=== PATIENT | female | born 1960 | race Caucasian/White ===

== ENCOUNTER 2017-01-03 20:56 | Emergency (ER) | payer OTHER ==
[~2017-01-03] VITALS: Ht 172.7 cm; Wt 79.4 kg
[~2017-01-03 20:56] MED LIST: ALBU8.5H6 IH; ALPR0.5T PO; ASPI-482 PO; ASPI-630 PO; ASPI325T11 PO; BENZ100C15 PO; BUDE10.22 IH; BUPR150T8 PO; CEPH-264 PO; CIPR500T94 PO; GABA-586 PO; IBUP-1007 PO; IPRA3AMP23 IH; METR500T8 PO; NICO10CA IH; OMEP20CA9 PO; OXYC1TAB7 PO; PRED20TA PO; PRED50TA PO; PROP60TA PO
[2017-01-03 20:59] VITALS: BP 130/78
[2017-01-03] MEDS ORDERED: PRED50TA PO (21:13)
[2017-01-03] MEDS ORDERED: CLIN150C14 PO (21:13)
--- NOTE | 2017-01-03 21:13 | PHYS DOC ---
Past Medical History Past Medical History: A-Fib, Anxiety, COPD, Diverticulitis, Other Additional Past Medical Histor: pleurisy, and shingles Past Surgical History: No Surgical History Alcohol Use: None Drug Use: None Adult General Chief Complaint Chief Complaint: INSECT BITE HPI HPI Patient is a 56 year old female with history of COPD who presents with what she believes is an insect bite to the right knee and left flank region that she noted this morning. Patient denies any fever. Denies any knowledge of what bit her. Review of Systems Review of Systems Constitutional: Denies fever or chills [] Musculoskeletal: Denies back pain or joint pain [] Integument: insect bite to the right knee and left flank region Neurologic: Denies headache, focal weakness or sensory changes [] Endocrine: Denies polyuria or polydipsia [] Current Medications Current Medications Current Medications Medications (Trade) Dose Ordered Sig/Alan Start Time Stop Time Status Last Admin Dose Admin Diphtheria/ Tetanus/Acell Pertussis (Boostrix) 0.5 ml ONCE ONCE 01/03/17 21:15 01/03/17 21:16 UNV Allergies Allergies Allergies Coded Allergies Type Severity Reaction Last Updated Verified Penicillins Allergy Intermediate "SKIN PEELS OFF HANDS AND FEET" 11/21/15 Yes Sulfa (Sulfonamide Antibiotics) Allergy Intermediate BLISTERS 11/21/15 Yes Physical Exam Physical Exam Constitutional: Well developed, well nourished, no acute distress, non-toxic appearance. [] Skin: Left flank region with an area of cellulitis approximately 3 x 3 cm the area is warm tender to touch with the a black nieves in the center. There is no fluctuance to the area. Right anterior knee with the area of cellulitis very superficial in nature approximately 4 x 4 centimeters. There is a tiny open area in the center of the knee cellulitis with clear drainage. There is warmth over the cellulitis area. Neurovascular exam is intact to the right knee and right lower extremity. Back: No tenderness, no CVA tenderness. [] Extremities: No tenderness, no cyanosis, no clubbing, ROM intact, no edema. [] Neurologic: Alert and oriented X 3, normal motor function, normal sensory function, no focal deficits noted. [] Psychologic: Affect normal, judgement normal, mood normal. [] Current Patient Data Vital Signs Vital Signs Date Time Temp Pulse Resp B/P (MAP) Pulse Ox O2 Delivery O2 Flow Rate FiO2 01/03/17 20:59 98.2 91 16 95 Room Air 98.2 EKG EKG [] Radiology/Procedures Radiology/Procedures [] Course & Med Decision Making Course & Med Decision Making Pertinent Labs and Imaging studies reviewed. (See chart for details) Patient has cellulitis to the left flank and right knee that could possibly have come from an insect bite. Discharged with clindamycin for 10 days. Instructed to keep the affected areas clean and dry. Given tetanus in the ED. Provided return precautions. Discharged in stable condition. Dragon Disclaimer Dragon Disclaimer This electronic medical record was generated, in whole or in part, using a voice recognition dictation system. Departure Departure Impression: Primary Impression: Insect bite Additional Impressions: Cellulitis of back Cellulitis of knee, right Disposition: 01 HOME, SELF-CARE Condition: STABLE Referrals: KAYE WORLEY MD (PCP) Follow-up with your doctor in 1-2 weeks Patient Instructions: Cellulitis, Insect Bite, [id number] Additional Instructions: You were seen for cellulitis of the right knee and left mid back. This could've come from an insect bite. Keep the area clean and dry. Complete your antibiotics. Take the prescribed prednisone as ordered. Take Benadryl as needed for itching. Follow-up with your doctor in 1-2 weeks. Scripts Prednisone (PREDNISONE) 50 Mg Tablet 1 TAB PO DAILY, #5 TAB Prov: NANI ALONSO APRN 01/03/17 Clindamycin Hcl (CLINDAMYCIN HCL) 150 Mg Capsule 3 CAP PO TID, #90 CAP Prov: NANI ALONSO APRN 01/03/17 Problem Qualifiers Primary Impression: Insect bite Encounter type: initial encounter Qualified Codes: W57.XXXA - Bitten or stung by nonvenomous insect and other nonvenomous arthropods, initial encounter NANI ALONSO APRN Jan 03, 2017 21:13
[2017-01-03] MEDS ORDERED: DIPHTH,PERTUSS(ACELL),TET TOX 0.5 ML DISP.SYRIN. VAX IM ONE (21:30)
== END 2017-01-03 21:26 | disposition home or self-care (01) ==
LOC: ER 20:56
DX: S80.261A Insect bite (nonvenomous), right knee, initial encounter (principal); S30.861A Insect bite (nonvenomous) of abdominal wall, initial encounter; L03.115 Cellulitis of right lower limb; L03.312 Cellulitis of back [any part except buttock and flank]; L03.818 Cellulitis of other sites; I48.91 Unspecified atrial fibrillation; F41.9 Anxiety disorder, unspecified; J44.9 Chronic obstructive pulmonary disease, unspecified; Z88.2 Allergy status to sulfonamides; Z88.0 Allergy status to penicillin; W57.XXXA Bitten or stung by nonvenomous insect and other nonvenomous arthropods, initial encounter; Y93.89 Activity, other specified; Y92.89 Other specified places as the place of occurrence of the external cause; Y99.8 Other external cause status
CPT/HCPCS: 90471; 90715; 99283-25

== ENCOUNTER 2017-01-11 19:23 | Emergency (ER) | payer OTHER ==
[~2017-01-11] VITALS: Ht 172.7 cm; Wt 79.4 kg
[~2017-01-11 19:23] MED LIST changes: +CLIN150C14 PO
[2017-01-11 19:35] VITALS: BP 149/75
[2017-01-11] MEDS ORDERED: PRED20TA PO (20:09)
[2017-01-11] MEDS ORDERED: DOXY100C2 PO (20:09)
--- NOTE | 2017-01-11 20:09 | PHYS DOC ---
Past Medical History Past Medical History: A-Fib, Anxiety, COPD, Diverticulitis, Other Additional Past Medical Histor: pleurisy, and shingles Past Surgical History: No Surgical History Alcohol Use: None Drug Use: None Adult General Chief Complaint Chief Complaint: ITCHING HPI HPI Patient is a 56 year old female presents emergency Department with left forearm that is red warm swollen and tender. Patient states the areas been itching for the last few days. Patient states that she was placed on cephalexin in the earlier part of December for an infection in her leg where she was bit by a insect. However looking through the chart patient was placed on clindamycin. Patient states that she was put on some steroids and the leg appear to look better after the steroids however now the left arm appears to be red swollen and tender. Patient denies any bites or any wounds to the left arm to create the area to be red warm and swollen. Peripheral pulses are 2+ cap refill brisk less than 2 seconds. Patient's right-hand dominant Review of Systems Review of Systems Constitutional: Denies fever or chills [] Eyes: Denies change in visual acuity, redness, or eye pain [] HENT: Denies nasal congestion or sore throat [] Respiratory: Denies cough or shortness of breath [] Cardiovascular: No additional information not addressed in HPI [] GI: Denies abdominal pain, nausea, vomiting, bloody stools or diarrhea [] : Denies dysuria or hematuria [] Musculoskeletal: Denies back pain. Redness warmth tenderness and pain to the left forearm Integument: Denies rash or skin lesions [] Neurologic: Denies headache, focal weakness or sensory changes [] Endocrine: Denies polyuria or polydipsia [] Allergies Allergies Allergies Coded Allergies Type Severity Reaction Last Updated Verified Penicillins Allergy Intermediate "SKIN PEELS OFF HANDS AND FEET" 11/21/15 Yes Sulfa (Sulfonamide Antibiotics) Allergy Intermediate BLISTERS 11/21/15 Yes Physical Exam Physical Exam Constitutional: Well developed, well nourished, no acute distress, non-toxic appearance. [] HENT: Normocephalic, atraumatic, bilateral external ears normal, oropharynx moist, no oral exudates, nose normal. [] Eyes: PERRLA, EOMI, conjunctiva normal, no discharge. [] Neck: Normal range of motion, no tenderness, supple, no stridor. [] Cardiovascular:Heart rate regular rhythm Lungs & Thorax: No respiratory distress noted Skin: Warm, dry, no erythema, patient with a red rash noted, no drainage no discharge no papules no pustulous noted. Back: No tenderness Extremities: Left forearm tenderness, redness noted swelling and warmth noted. No cyanosis, no clubbing, ROM intact, no edema. [] Neurologic: Alert and oriented X 3, normal motor function, normal sensory function, no focal deficits noted. [] Psychologic: Affect normal, judgement normal, mood normal. [] Current Patient Data Vital Signs Vital Signs Date Time Temp Pulse Resp B/P (MAP) Pulse Ox O2 Delivery O2 Flow Rate FiO2 01/11/17 19:35 98.0 81 18 98 Room Air 98.0 EKG EKG [] Radiology/Procedures Radiology/Procedures [] Course & Med Decision Making Course & Med Decision Making Pertinent Labs and Imaging studies reviewed. (See chart for details) Patient will be placed on steroid for 7 days as opposed to a short 2-3 day. Patient had been on steroids earlier in the month. Patient will stop the antibiotic which she was prescribed and will be placed on doxycycline. Patient will be encouraged follow-up with her primary care physician for blood work to determine if she has an autoimmune issue due to the fact she has continual rashes. Patient was provided with signs and symptoms to return back to emergency department. Patient agrees with discharge instructions treatment regimens and follow-up recommendations. [] Dragon Disclaimer Dragon Disclaimer This electronic medical record was generated, in whole or in part, using a voice recognition dictation system. Departure Departure Impression: Primary Impression: Cellulitis of left forearm Disposition: 01 HOME, SELF-CARE Condition: STABLE Referrals: KAYE WORLEY MD (PCP) Patient Instructions: Cellulitis, Opcd-mi-Urri Additional Instructions: Activity as tolerated. Medications as prescribed. Stop taking the previous antibiotic clindamycin your prescribed. Prednisone as prescribed. Continue your antihistamine that you're taking at home. Follow-up to primary care physician in the next week. Return back to emergency prior signs symptoms of become worse. Scripts Prednisone (PREDNISONE) 20 Mg Tablet 40 MG PO DAILY for 7 Days, #14 TAB Prov: STEPH ESTRADA [employer]us [employer] 01/11/17 Doxycycline Hyclate (DOXYCYCLINE HYCLATE) 100 Mg Capsule 1 CAP PO BID, #20 CAP Prov: STEPH ESTRADA APRN 01/11/17 STEPH ESTRADA APRN Jan 11, 2017 20:09
== END 2017-01-11 20:15 | disposition home or self-care (01) ==
LOC: ER 19:23
DX: L03.114 Cellulitis of left upper limb (principal); I48.91 Unspecified atrial fibrillation; J44.9 Chronic obstructive pulmonary disease, unspecified; Z88.0 Allergy status to penicillin; Z88.2 Allergy status to sulfonamides
CPT/HCPCS: 99283

== ENCOUNTER 2017-02-15 21:30 | Emergency (ER) | payer OTHER ==
[~2017-02-15 21:30] MED LIST changes: +DOXY100C2 PO
--- NOTE | 2017-02-15 21:52 | PHYS DOC ---
Past Medical History Past Medical History: A-Fib, Anxiety, COPD, Diverticulitis, Other Additional Past Medical Histor: pleurisy, and shingles Past Surgical History: No Surgical History Alcohol Use: None Drug Use: None Adult General Chief Complaint Chief Complaint: LOWEREXTREMITY INJURY [facility] HPI Patient is a 56 year old female presents to the emergency department stating that she slipped in the the med today and landed on her left knee and has a knot on her left tib-fib area. She denies any radiation of pain or discomfort. She does have a abrasion on her knee noted. She does have tenderness and swelling noted around the knee area. She does have a hematoma noted over the tib -fib area. Peripheral pulses are 2+ cap refill brisk less than 2 seconds. Patient states she's been taken medication at home for pain and discomfort with no relief. She states elevation has been helping with the pain. Review of Systems Review of Systems Constitutional: Denies fever or chills [] Eyes: Denies change in visual acuity, redness, or eye pain [] HENT: Denies nasal congestion or sore throat [] Respiratory: Denies cough or shortness of breath [] Cardiovascular: No additional information not addressed in HPI [] GI: Denies abdominal pain, nausea, vomiting, bloody stools or diarrhea [] : Denies dysuria or hematuria [] Musculoskeletal: Denies back pain. Left knee pain and left lower leg pain Integument: Denies rash or skin lesions [] Neurologic: Denies headache, focal weakness or sensory changes [] Endocrine: Denies polyuria or polydipsia [] Current Medications Current Medications Current Medications Medications (Trade) Dose Ordered Sig/[facility] Start Time Stop Time Status Last Admin Dose Admin Ibuprofen (Motrin) 800 mg 1X ONCE 02/15/17 22:00 02/15/17 22:01 DC Allergies Allergies Allergies Coded Allergies Type Severity Reaction Last Updated Verified Penicillins Allergy Intermediate "SKIN PEELS OFF HANDS AND FEET" 11/21/15 Yes Sulfa (Sulfonamide Antibiotics) Allergy Intermediate BLISTERS 11/21/15 Yes Physical Exam Physical Exam Constitutional: Well developed, well nourished, no acute distress, non-toxic appearance. [] HENT: Normocephalic, atraumatic, bilateral external ears normal, oropharynx moist, no oral exudates, nose normal. [] Eyes: PERRLA, EOMI, conjunctiva normal, no discharge. [] Neck: Normal range of motion, no tenderness, supple, no stridor. [] Cardiovascular:Heart rate regular rhythm, no murmur [] Lungs & Thorax: Bilateral breath sounds clear to auscultation [] Skin: Warm, dry, no erythema, no rash. [] Back: No tenderness Extremities: Left knee tenderness, left lower leg pain and discomfort. No cyanosis, no clubbing, ROM intact, no edema. Patient with tenderness noted on the posterior side of the knee and the lateral part of the left knee. Abrasion noted over the knee. Patient with increased pain and discomfort with full range of motion. Patient was noted to have a hematoma on the distal part of the tib- fib area. She does have tenderness noted patient with multiple areas of bruising. Peripheral pulses 2+ cap refill brisk less than 2 seconds. Patient is able to do straight leg raises with the left leg. Neurologic: Alert and oriented X 3, normal motor function, normal sensory function, no focal deficits noted. [] Psychologic: Affect normal, judgement normal, mood normal. [] Current Patient Data Vital Signs Vital Signs Date Time Temp Pulse Resp B/P (MAP) Pulse Ox O2 Delivery O2 Flow Rate FiO2 02/15/17 21:30 98.1 86 18 96 Room Air 98.1 EKG EKG [] Radiology/Procedures Radiology/Procedures [] Course & Med Decision Making Course & Med Decision Making Pertinent Labs and Imaging studies reviewed. (See chart for details) X-rays are negative for any bony abnormalities. Patient will be discharged home with recommendations to wear the [place]bin wrap for comfort and support. Ice packs on 20 minutes off 20 minutes several times a day. Tylenol or ibuprofen for pain and discomfort. Patient will be encouraged to follow-up the primary care physician within the next 3-5 days. Signs symptoms to return back to emergency provided. Patient agrees with discharge instructions treatment regimens and follow-up recommendations. All questions and concerns been answered at patient' s bedside. [] Dragon Disclaimer Dragon Disclaimer This electronic medical record was generated, in whole or in part, using a voice recognition dictation system. Departure Departure Impression: Primary Impression: Knee pain, left Additional Impression: Contusion Disposition: 01 HOME, SELF-CARE Condition: STABLE Referrals: KAYE WORLEY MD (PCP) ISAI MCDONNELL MD Patient Instructions: Contusion, [id number], Knee Pain, [id number] Additional Instructions: Your x-rays were negative for any bony abnormalities. Wear the [place] wrap for the next 5-7 days. Tylenol or ibuprofen for pain and discomfort. Ice packs on 20 minutes off 20 minutes several times a day. Elevation as much as possible. Follow-up to primary care physician or orthopedic within 3-5 days Return back to emergency prior signs symptoms of become worse. Problem Qualifiers Primary Impression: Knee pain, left Chronicity: acute Qualified Codes: M25.562 - Pain in left knee Additional Impression: Contusion Encounter type: initial encounter Contusion area: lower leg Laterality: left Qualified Codes: S80.12XA - Contusion of left lower leg, initial encounter STEPH ESTRADA APRN Feb 15, 2017 21:52
[2017-02-15] MEDS ORDERED: IBUPROFEN 800 MG TABLET. PO ONE (22:00)
--- NOTE | 2017-02-16 08:16 | RAD ---
Exam performed: X-ray left knee 4 views and left tibia-fibula. History: Left knee pain and discomfort with a probable swelling on the leg today. Date of service: 02/15/17. Comparison: None available 4 views left knee and 2 views left tibia fibula findings: Normal alignment of the medial and lateral tibiofemoral as well as patellofemoral joint compartment is preserved. There is mild prepatellar soft tissue swelling. No joint effusion. Normal alignment of the ankle joint is preserved. There is no acute fracture or dislocation. Mild soft tissue swelling. No foreign body. Impression: No acute abnormality seen in the left knee or tibia-fibula.
== END 2017-02-15 23:15 | disposition home or self-care (01) ==
LOC: ER 21:30
DX: S80.12XA Contusion of left lower leg, initial encounter (principal); I48.91 Unspecified atrial fibrillation; J44.9 Chronic obstructive pulmonary disease, unspecified; Z88.0 Allergy status to penicillin; Z88.2 Allergy status to sulfonamides; W01.0XXA Fall on same level from slipping, tripping and stumbling without subsequent striking against object, initial encounter; Y93.89 Activity, other specified; Y99.8 Other external cause status; Y92.89 Other specified places as the place of occurrence of the external cause
CPT/HCPCS: 73564; 73590; 99284-25

== ENCOUNTER → 2017-06-01 | Outpatient (CLI) | payer OTHER ==
[2017-03-07 07:00] VITALS: BP 129/81
[~2017-06-01] MED LIST changes: +ALPR0.5T6 PO; +BENZ-8 PO; -BENZ100C15 PO; +BUDE10.2 IH; +BUSP5TAB PO; +DULO60CA6 PO; +GABA600T2 PO; +MELO15TA23 PO; +MONT10TA9 PO
--- NOTE | 2017-06-01 16:00 | RAD ---
Indication: Supraclavicular adenopathy on exam Technique: Axial images and coronal and sagittal reformatted images are provided. Comparison is from May 29, 2013. One or more of the following individualized dose reduction techniques were utilized for this examination: 1. Automated exposure control 2. Adjustment of the mA and/or kV according to patient size 3. Use of iterative reconstruction technique Findings: There are subcentimeter short axis supraclavicular lymph nodes bilaterally but no adenopathy. There are subcentimeter short axis axillary lymph nodes bilaterally but no adenopathy. There is minimal emphysema with an upper lobe predominance. There is atelectasis or scarring in the middle lobe and lingula. There are a few groundglass nodules up to 4 mm in size, for example in the right middle lobe on image 44. There is no consolidation. There is no pleural effusion. Central airways are patent. There is atheromatous disease in the thoracic aorta without aneurysm. There are coronary artery calcifications. The heart is not enlarged. There are minimal degenerative changes in the spine. Impression: 1. Subcentimeter short axis supraclavicular and axillary lymph nodes. No adenopathy apparent. These nodes may be reactive. As these lymph nodes are clinically palpable, clinical follow-up to resolution would be suggested. 2. Minimal emphysema. 3. A few vague groundglass nodules. Per Fleischner Society, follow-up in 3-6 months is recommended.
== END | disposition home or self-care (01) ==
LOC: CT 12:56
PROVIDERS: ATTEND Family Medicine
DX: J43.9 Emphysema, unspecified (principal); I70.90 Unspecified atherosclerosis; R59.0 Localized enlarged lymph nodes
CPT/HCPCS: 71250

== ENCOUNTER → 2017-08-11 | Outpatient (CLI) | payer OTHER | END | disposition home or self-care (01) | LOC: CT 11:53 | DX: J43.9 Emphysema, unspecified (principal); R91.8 Other nonspecific abnormal finding of lung field; Z87.891 Personal history of nicotine dependence | CPT/HCPCS: 71250 ==

== ENCOUNTER → 2017-11-04 | Outpatient (CLI) | payer OTHER | END | disposition home or self-care (01) | LOC: MAMMO 12:03 | DX: Z12.31 Encounter for screening mammogram for malignant neoplasm of breast (principal); J44.1 Chronic obstructive pulmonary disease with (acute) exacerbation | CPT/HCPCS: 77067 ==

== ENCOUNTER → 2018-09-30 | Outpatient (CLI) | payer OTHER ==
[2018-05-03 11:54] VITALS: BP 139/80
[~2018-09-30] MED LIST changes: +DILT120C85 PO; +FLUT16SP NS; +FURO20TA3 PO; -GABA-586 PO; +GABA300C18 PO; +GABA300C9 PO; -GABA600T2 PO; +GABA600T7 PO; +HYDR50CA2 PO; +LOSA-73 PO; +METR-34 PO; -METR500T8 PO; +OMEP20CA10 PO; -OMEP20CA9 PO; +OXYC10TA PO
--- NOTE | 2018-09-30 17:56 | RAD ---
Chest CT without contrast Clinical indications: COPD. COMPARISON: June 01, 2017 and 10/09/2017. TECHNIQUE: Noncontrast helical CT scanning of the chest was performed. Without contrast, sensitivity to detect organ pathology is decreased. PQRS compliance Statement One or more of the following individualized dose reduction techniques were utilized for this study: 1. Automated exposure control 2. Adjustment of the mA and/or kV according to patient size 3. Use of iterative reconstruction technique FINDINGS: Mediastinal lymph nodes are unchanged. No enlarging thoracic lymphadenopathy is evident. Heart size is normal. Mild calcified atheromatous disease of the coronary arteries is seen. No pericardial effusion is evident. No focal aneurysmal dilatation of the thoracic aorta is seen. No adrenal mass is evident. No lung mass or lung consolidation is evident. There is chronic scarring within the medial aspect of the right middle lobe. No new lung nodule is evident. The proximal bronchial tree is patent. No lytic process is seen. No adrenal mass is evident. IMPRESSION: No acute abnormality. Electronically signed by: Kenyon Griffin MD (09/30/2018 5:53 PM) [facility]
== END | disposition home or self-care (01) ==
LOC: CT 13:02
PROVIDERS: ATTEND Family Medicine
DX: J98.4 Other disorders of lung (principal); J44.9 Chronic obstructive pulmonary disease, unspecified; I25.10 Atherosclerotic heart disease of native coronary artery without angina pectoris
CPT/HCPCS: 71250

== ENCOUNTER 2018-11-23 02:24 | Inpatient (IN) | payer OTHER ==
[2018-11-23] VITALS (7 sets, daily range): BP systolic 118–145; BP diastolic 64–80
[~2018-11-23] VITALS: Ht 172.7 cm; Wt 83.6 kg
[~2018-11-23 02:24] MED LIST changes: -DILT120C85 PO; -FLUT16SP NS; -FURO20TA3 PO; -GABA300C9 PO
[2018-11-23] MEDS ORDERED: ALBUTEROL SULFATE 2.5 MG/3 ML NEBU. ONE (02:30)
[2018-11-23] MEDS ORDERED: ALBUTEROL SULFATE 2.5 MG/3 ML NEBU. CONT NEB ONE (02:30)
[2018-11-23] MEDS ORDERED: methylPREDNISolone SOD SUCC PF 125 MG/2 ML VIAL. IV ONE (02:45)
[2018-11-23 03:27] LABS: BASO % 1 % (0-3); EOS # 0.3 x10^3/uL (0.0-0.7); EOS % 3 % (0-3); HEMATOCRIT 40.5 % (36.0-47.0); HEMOGLOBIN 13.7 g/dL (12.0-15.5); LYMPH # 1.2 x10^3/uL (1.0-4.8); LYMPH % 14 % (24-48); MEAN CORPUSCULAR HEMOGLOBIN 32 pg (25-35); MEAN CORPUSCULAR HGB CONC 34 g/dL (31-37); MEAN CORPUSCULAR VOLUME 94 fL (79-100); MONO % 11 % (0-9); NEUT # 6.1 x10^3uL (1.8-7.7); NEUT % 71 % (31-73); PLATELET COUNT 227 x10^3/uL (140-400); RED BLOOD COUNT 4.32 x10^6/uL (3.50-5.40); RED CELL DISTRIBUTION WIDTH 14.3 % (11.5-14.5); WHITE BLOOD COUNT 8.6 x10^3/uL (4.0-11.0)
[2018-11-23 03:36] LABS: CALCIUM 9.6 mg/dL (8.5-10.1); CREATININE 0.6 mg/dL (0.6-1.0); GFR 102.3; POTASSIUM 3.9 mmol/L (3.5-5.1)
[2018-11-23 03:44] LABS: ALBUMIN 3.7 g/dL (3.4-5.0); TOTAL BILIRUBIN 0.2 mg/dL (0.2-1.0); TOTAL PROTEIN 7.4 g/dL (6.4-8.2)
--- NOTE | 2018-11-23 04:24 | PHYS DOC ---
Past Medical History Past Medical History: A-Fib, Anxiety, COPD, Diverticulitis, Other Additional Past Medical Histor: pleurisy, and shingles Past Surgical History: No Surgical History Alcohol Use: None Drug Use: None Adult General Chief Complaint Chief Complaint: SHORTNESS OF BREATH HPI HPI Patient is a 58 year old female with history of A. fib, COPD who presents with increased shortness of breath for the past 3 days. Patient states she is having head cold in seasonal allergies which is gradually settled into her chest. Reports increased home breathing treatment's. Patient has been using breathing treatment 6 times daily. Patient called EMS was reported to be in mild respiratory distress. 2 DuoNeb treatments given prior to arrival. Patient with diminished breath sounds bilaterally with expiratory wheezes. O2 saturations 98%. No other acute symptoms or complaints. Patient's guard chief is Dr. Barahona.[] Review of Systems Review of Systems ROS PER h All other systems were reviewed and found to be within normal limits, except as documented in this note. Current Medications Current Medications Current Medications Medications (Trade) Dose Ordered Sig/Alan Start Time Stop Time Status Last Admin Dose Admin Albuterol Sulfate (Ventolin Neb Soln) 2.5 mg STK-MED ONCE 11/23/18 02:30 11/23/18 02:31 DC Methylprednisolone Sodium Succinate (SOLU-Medrol 125MG VIAL) 125 mg 1X ONCE 11/23/18 02:45 11/23/18 02:59 DC 11/23/18 03:22 125 MG Allergies Allergies Allergies Coded Allergies Type Severity Reaction Last Updated Verified Penicillins Allergy Intermediate "SKIN PEELS OFF HANDS AND FEET" 11/21/15 Yes Sulfa (Sulfonamide Antibiotics) Allergy Intermediate BLISTERS 11/21/15 Yes Physical Exam Physical Exam Constitutional: Well developed, well nourished, no acute distress, non-toxic appearance. [] HENT: Normocephalic, atraumatic, bilateral external ears normal, oropharynx moist, no oral exudates, nose normal. [] Eyes: PERRLA, EOMI, conjunctiva normal, no discharge. [] Neck: Normal range of motion, no tenderness, supple, no stridor. [] Cardiovascular:Heart rate regular rhythm, no murmur [] Lungs & Thorax: Respirations labored, tachypnea, and coarse diminished breath sounds with expiratory wheezes. [] Abdomen: Bowel sounds normal, soft, no tenderness, no masses, no pulsatile masses. [] Skin: Warm, dry, no erythema, no rash. [] Back: No tenderness, no CVA tenderness. [] Extremities: No tenderness, no cyanosis, no clubbing, ROM intact, no edema. [] Neurologic: Alert and oriented X 3, normal motor function, normal sensory f unction, no focal deficits noted. [] Psychologic: Affect normal, judgement normal, mood normal. [] Current Patient Data Vital Signs Vital Signs Date Time Temp Pulse Resp B/P (MAP) Pulse Ox O2 Delivery O2 Flow Rate FiO2 11/23/18 02:30 92 Room Air 11/23/18 02:26 98.2 95 24 141/86 (104) 98.2 EKG EKG [ekg: Sinus rhythm, nonspecific T-wave abnormalities, rate 91, qtc 449.] Radiology/Procedures Radiology/Procedures [Chest x-ray: Radiology report pending] Course & Med Decision Making Course & Med Decision Making Pertinent Labs and Imaging studies reviewed. (See chart for details) [Acute COPD exacerbation. Continuous breathing treatment and steroids given. Patient remains symptomatic with persistent wheezes. Will admit to hospitalist service with pulmonology consult] Dragon Disclaimer Dragon Disclaimer This electronic medical record was generated, in whole or in part, using a voice recognition dictation system. Departure Departure Impression: Primary Impression: COPD exacerbation Disposition: ADMITTED INPATIENT Condition: IMPROVED Referrals: KAYE WORLEY MD (PCP) DEREJE CARLIN DO Nov 23, 2018 04:24
[2018-11-23] MEDS ORDERED: FLUT16SP NS (04:44)
[2018-11-23] MEDS ORDERED: GABA300C9 PO (04:44)
--- NOTE | 2018-11-23 05:19 | NUR ---
Patient arrived to unit at 0406 accompanied by ER nurse. VS stable, assessment complete, no complaints of pain at this time. Pt resting comfortably on RA. Valuables checked. Call light with in reach, bed in low, locked position. Will continue to monitor pt.
[2018-11-23] MEDS: methylPREDNISolone SOD SUCC PF 125 MG/2 ML VIAL. IV SCH ×2 (06:11→13:45)
--- NOTE | 2018-11-23 06:57 | EKG ---
[facility] [address] [place] [address] Test Date: 2018-11-23 Test Time: 03:03:18 Pat Name: SILVIA JOHN Department: Room: Gender: F [employer]: : 1960 Requested By: DEREJE CARLIN Order Number: [id number] Reading MD: Measurements Intervals [place] Rate: 91 P: 45 WV: 180 QRS: 8 QRSD: 74 T: 56 QT: 364 QTc: 449 Interpretive Statements SINUS RHYTHM NON SPECIFIC T ABNORMALITY BORDERLINE ECG No previous ECG available for comparison
[2018-11-23] MEDS ORDERED: IPRATRPIUM/ALBUTEROL 0.5/2.5MG 3 ML NEBU. NEB SCH (08:00)
[2018-11-23] MEDS: oxyCODONE/APAP 5/325 1 TAB TABLET PO PRN ×2 (08:09→16:15)
--- NOTE | 2018-11-23 08:25 | RAD ---
EXAM: CHEST 1 VIEW History: Shortness of breath COMPARISON: 05/01/2018 TECHNIQUE: Single portable radiograph of the chest FINDINGS: The cardiac silhouette is unremarkable. Minimal prominent bilateral interstitial lung markings. The costophrenic sulci are clear and well demarcated. There is a density projecting in the inferior right hemithorax probably external to the patient. IMPRESSION: 1. Mild prominent bilateral interstitial lung markings likely mild congestive changes. 2. There is a density projecting in the inferior right hemithorax probably external to the patient. Electronically signed by: Epifanio Ross MD (11/23/2018 8:22 AM) [place] [id number]
--- NOTE | 2018-11-23 10:24 | PDOC1 ---
History and Physical Date of Admission Date of Admission DATE: 11/23/18 TIME: 10:19 Identification/Chief Complaint Chief Complaint dyspnea, cough Source Source: Chart review, Patient History of Present Illness History of Present Illness Ms. Tao, is a 58 year old female with days of worsening cough and dyspnea, long hx of COPD, prior exacerbations, Now with increased shortness of breath for the past 3 days. 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 Reports increased home breathing treatment's. Patient has been using breathing treatment 6 times daily. came to hospital by EMS was reported to be in respiratory distress. 2 DuoNeb treatments given prior to arrival. . Patient's gusset stitcher is Dr. Campos Past Medical History Cardiovascular: AFIB, HTN Pulmonary: COPD CENTRAL NERVOUS SYSTEM: Other GI: Other Heme/Onc: No pertinent hx Hepatobiliary: No pertinent hx Psych: Anxiety, Depression Musculoskeletal: Osteoarthritis Rheumatologic: No pertinent hx Infectious disease: No pertinent hx Renal/: No pertinent hx Endocrine: No pertinent hx Past Surgical History Past Surgical History: No pertinent history Family History Family History: Coronary Artery Disease Social History Smoke: <1 pack per day ALCOHOL: none Drugs: None Current Problem List Problem List Problems Medical Problems: (1) COPD exacerbation Status: Acute Current Medications Current Medications Current Medications Methylprednisolone Sodium Succinate (SOLU-Medrol 125MG VIAL) 125 mg 1X ONCE IV Last administered on 11/23/18at 03:22; Start 11/23/18 at 02:45; Stop 11/23/18 at 02:59; Status DC Albuterol Sulfate (Ventolin Neb Soln) 10 mg 1X ONCE CONT NEB Last administered on 11/23/18at 02:30; Start 11/23/18 at 02:30; Stop 11/23/18 at 02:59; Status DC Albuterol Sulfate (Ventolin Neb Soln) 2.5 mg STK-MED ONCE .ROUTE ; Start 11/23/18 at 02:30; Stop 11/23/18 at 02:31; Status DC Albuterol/ Ipratropium (Duoneb) 3 ml RTQID NEB Last administered on 11/23/18at 07:52; Start 11/23/18 at 08:00; Stop 11/24/18 at 07:59 Methylprednisolone Sodium Succinate (SOLU-Medrol 125MG VIAL) 62.5 mg Q8HRS IV Last administered on 11/23/18at 06:11; Start 11/23/18 at 06:00 Oxycodone/ Acetaminophen (Percocet 5/325) 1 tab PRN Q6HRS PRN PO PAIN Last administered on 11/23/18at 08:09; Start 11/23/18 at 08:15 Active Scripts Active Reported Fluticasone Propionate Nasal [place] (Fluticasone Propionate) 16 Gm [place].susp 16 Gm NS DAILY Gabapentin 300 Mg Capsule 300 Mg PO BID Hydroxyzine Pamoate 50 Mg Capsule 25 Mg PO PRN BID PRN Losartan Potassium 50 Mg Tablet 50 Mg PO DAILY Symbicort 160-4.5 Mcg Inhaler (Budesonide/Formoterol Fumarate) 10.2 Gm Hfa.aer.ad 2 Puff IH BID Cymbalta (Duloxetine Hcl) 60 Mg Capsule.dr 1 Cap PO DAILY Alprazolam 0.5 Mg Tablet 1 Tab PO QHS Montelukast Sodium Tablet (Montelukast Sodium) 10 Mg Tablet 10 Mg PO HS Meloxicam 15 Mg Tablet 15 Mg PO DAILY Omeprazole 20 Mg Capsule.dr 1 Cap PO DAILY Aspirin 81 Mg Tab.chew 1 Tab PO DAILY Benzonatate 100 Mg Capsule 1 Cap PO BID Albuterol Sulfate Hfa Inhaler (Albuterol Sulfate) 8.5 Gm Hfa.aer.ad 8.5 Gm IH QID Oxycodone-Acetaminophen 5-325 (Oxycodone Hcl/Acetaminophen) 1 Each Tablet 1 Each PO PRN Q6HRS PRN Duoneb 0.5 Mg-3 Mg/3 Ml Soln (Ipratropium/Albuterol Sulfate) 3 Ml Ampul.neb 3 Ml IH Allergies Allergies: Coded Allergies: Penicillins (Verified Allergy, Intermediate, "SKIN PEELS OFF HANDS AND FEET", 11/21/15) Sulfa (Sulfonamide Antibiotics) (Verified Allergy, Intermediate, BLISTERS, 11/21/15) ROS General: YES: Chills, Fatigue, Malaise PSYCHOLOGICAL ROS: YES: Sleep disturbances Physical Exam Lungs: Other (rales, end wheeze with loud anterior squeak, mod low volume) Heart: RRR Extremities: No clubbing, No cyanosis Skin: No rashes, Other (right foot pemphigus, ) Neuro: Normal speech, Normal tone, Sensation intact Psych/Mental Status: Mental status NL, Mood NL Vitals Vitals Vital Signs Date Time Temp Pulse Resp B/P (MAP) Pulse Ox O2 Delivery O2 Flow Rate FiO2 11/23/18 09:09 16 Room Air 11/23/18 07:52 94 11/23/18 07:42 98.2 98 136/64 (88) 98.2 Labs Labs Laboratory Tests Test 11/23/18 03:15 White Blood Count 8.6 x10^3/uL (4.0-11.0) Red Blood Count 4.32 x10^6/uL (3.50-5.40) Hemoglobin 13.7 g/dL (12.0-15.5) Hematocrit 40.5 % (36.0-47.0) Mean Corpuscular Volume 94 fL (79-100) Mean Corpuscular Hemoglobin 32 pg (25-35) Mean Corpuscular Hemoglobin Concent 34 g/dL (31-37) Red Cell Distribution Width 14.3 % (11.5-14.5) Platelet Count 227 x10^3/uL (140-400) Neutrophils (%) (Auto) 71 % (31-73) Lymphocytes (%) (Auto) 14 % (24-48) Monocytes (%) (Auto) 11 % (0-9) Eosinophils (%) (Auto) 3 % (0-3) Basophils (%) (Auto) 1 % (0-3) Neutrophils # (Auto) 6.1 x10^3uL (1.8-7.7) Lymphocytes # (Auto) 1.2 x10^3/uL (1.0-4.8) Monocytes # (Auto) 1.0 x10^3/uL (0.0-1.1) Eosinophils # (Auto) 0.3 x10^3/uL (0.0-0.7) Basophils # (Auto) 0.0 x10^3/uL (0.0-0.2) Sodium Level 140 mmol/L (136-145) Potassium Level 3.9 mmol/L (3.5-5.1) Chloride Level 103 mmol/L (98-107) Carbon Dioxide Level 29 mmol/L (21-32) Anion Gap 8 (6-14) Blood Urea Nitrogen 13 mg/dL (7-20) Creatinine 0.6 mg/dL (0.6-1.0) Estimated GFR (Cockcroft-Gault) 102.3 BUN/Creatinine Ratio 22 (6-20) Glucose Level 105 mg/dL (70-99) Calcium Level 9.6 mg/dL (8.5-10.1) Total Bilirubin 0.2 mg/dL (0.2-1.0) Aspartate Amino Transf (AST/SGOT) 14 U/L (15-37) Alanine Aminotransferase (ALT/SGPT) 19 U/L (14-59) Alkaline Phosphatase 82 U/L (46-116) Total Protein 7.4 g/dL (6.4-8.2) Albumin 3.7 g/dL (3.4-5.0) Albumin/Globulin Ratio 1.0 (1.0-1.7) Laboratory Tests Test 11/23/18 03:15 White Blood Count 8.6 x10^3/uL (4.0-11.0) Red Blood Count 4.32 x10^6/uL (3.50-5.40) Hemoglobin 13.7 g/dL (12.0-15.5) Hematocrit 40.5 % (36.0-47.0) Mean Corpuscular Volume 94 fL (79-100) Mean Corpuscular Hemoglobin 32 pg (25-35) Mean Corpuscular Hemoglobin Concent 34 g/dL (31-37) Red Cell Distribution Width 14.3 % (11.5-14.5) Platelet Count 227 x10^3/uL (140-400) Neutrophils (%) (Auto) 71 % (31-73) Lymphocytes (%) (Auto) 14 % (24-48) Monocytes (%) (Auto) 11 % (0-9) Eosinophils (%) (Auto) 3 % (0-3) Basophils (%) (Auto) 1 % (0-3) Neutrophils # (Auto) 6.1 x10^3uL (1.8-7.7) Lymphocytes # (Auto) 1.2 x10^3/uL (1.0-4.8) Monocytes # (Auto) 1.0 x10^3/uL (0.0-1.1) Eosinophils # (Auto) 0.3 x10^3/uL (0.0-0.7) Basophils # (Auto) 0.0 x10^3/uL (0.0-0.2) Sodium Level 140 mmol/L (136-145) Potassium Level 3.9 mmol/L (3.5-5.1) Chloride Level 103 mmol/L (98-107) Carbon Dioxide Level 29 mmol/L (21-32) Anion Gap 8 (6-14) Blood Urea Nitrogen 13 mg/dL (7-20) Creatinine 0.6 mg/dL (0.6-1.0) Estimated GFR (Cockcroft-Gault) 102.3 BUN/Creatinine Ratio 22 (6-20) Glucose Level 105 mg/dL (70-99) Calcium Level 9.6 mg/dL (8.5-10.1) Total Bilirubin 0.2 mg/dL (0.2-1.0) Aspartate Amino Transf (AST/SGOT) 14 U/L (15-37) Alanine Aminotransferase (ALT/SGPT) 19 U/L (14-59) Alkaline Phosphatase 82 U/L (46-116) Total Protein 7.4 g/dL (6.4-8.2) Albumin 3.7 g/dL (3.4-5.0) Albumin/Globulin Ratio 1.0 (1.0-1.7) VTE Prophylaxis Ordered VTE Prophylaxis Devices: Yes VTE Pharmacological Prophylaxi: Yes Assessment/Plan Assessment/Plan COPD, acute bronchits + SIRS anxiety disorder w. depression, on cymbalta cough, dyspena chronic neuropathy pain, legs, KIMBERLEY SCOTT MD Nov 23, 2018 10:24
[2018-11-23] MEDS ORDERED: ZOLPIDEM 5 MG TABLET. PO PRN (10:30)
[2018-11-23] MEDS ORDERED: hydrOXYzine 25 MG TABLET PO PRN (10:45)
[2018-11-23] MEDS: ASPIRIN CHEWABLE 81 MG TABLET. PO SCH (10:52)
[2018-11-23] MEDS: BENZONATATE 100 MG CAPSULE. PO SCH ×2 (10:52→21:08)
[2018-11-23] MEDS: guaiFENesin/CODEINE 100mg/10mg 5 ML LIQUID PO PRN (10:52)
[2018-11-23] MEDS: LOSARTAN POTASSIUM 50 MG TABLET. PO SCH (10:53)
[2018-11-23] MEDS: MELOXICAM 7.5 MG TABLET PO SCH (10:53)
[2018-11-23] MEDS: DULoxetine HCL 30 MG CAPSULE.DR PO SCH (10:53)
[2018-11-23] MEDS: GABAPENTIN 300 MG CAPSULE. PO SCH ×2 (10:53→21:08)
[2018-11-23] MEDS: FLUTICASONE 50MCG/NASAL SPRAY 16GM BOTTLE. NS SCH (11:04)
[2018-11-23] MEDS: IPRATRPIUM/ALBUTEROL 0.5/2.5MG 3 ML NEBU. NEB SCH ×4 (11:49→21:26)
--- NOTE | 2018-11-23 12:39 | NUR ---
SS following for discharge planning. SS reviewed pt chart. Pt is from home and is currently on room air. No discharge needs noted at this time. SS will continue to follow for discharge planning.
--- NOTE | 2018-11-23 13:52 | NUR ---
Report called to Ver[facility] on 5N, patient being transferred via wheelchair by transportation.
[2018-11-23] MEDS: ENOXAPARIN 40 MG/0.4 ML SYRINGE. SQ SCH (16:00)
--- NOTE | 2018-11-23 16:43 | PDOC ---
PULMONARY PROGRESS NOTES Vitals Vital Signs Date Time Temp Pulse Resp B/P (MAP) Pulse Ox O2 Delivery O2 Flow Rate FiO2 11/23/18 16:15 Room Air 11/23/18 15:00 98.6 89 18 118/76 (90) 90 98.6 General: Alert, Oriented X4 HEENT: Other Lungs: Wheezing, Other Cardiovascular: S1, S2 Abdomen: Soft, Non-tender Extremities: No Edema Labs Laboratory Tests Test 11/23/18 03:15 White Blood Count 8.6 x10^3/uL (4.0-11.0) Red Blood Count 4.32 x10^6/uL (3.50-5.40) Hemoglobin 13.7 g/dL (12.0-15.5) Hematocrit 40.5 % (36.0-47.0) Mean Corpuscular Volume 94 fL (79-100) Mean Corpuscular Hemoglobin 32 pg (25-35) Mean Corpuscular Hemoglobin Concent 34 g/dL (31-37) Red Cell Distribution Width 14.3 % (11.5-14.5) Platelet Count 227 x10^3/uL (140-400) Neutrophils (%) (Auto) 71 % (31-73) Lymphocytes (%) (Auto) 14 % (24-48) Monocytes (%) (Auto) 11 % (0-9) Eosinophils (%) (Auto) 3 % (0-3) Basophils (%) (Auto) 1 % (0-3) Neutrophils # (Auto) 6.1 x10^3uL (1.8-7.7) Lymphocytes # (Auto) 1.2 x10^3/uL (1.0-4.8) Monocytes # (Auto) 1.0 x10^3/uL (0.0-1.1) Eosinophils # (Auto) 0.3 x10^3/uL (0.0-0.7) Basophils # (Auto) 0.0 x10^3/uL (0.0-0.2) Sodium Level 140 mmol/L (136-145) Potassium Level 3.9 mmol/L (3.5-5.1) Chloride Level 103 mmol/L (98-107) Carbon Dioxide Level 29 mmol/L (21-32) Anion Gap 8 (6-14) Blood Urea Nitrogen 13 mg/dL (7-20) Creatinine 0.6 mg/dL (0.6-1.0) Estimated GFR (Cockcroft-Gault) 102.3 BUN/Creatinine Ratio 22 (6-20) Glucose Level 105 mg/dL (70-99) Calcium Level 9.6 mg/dL (8.5-10.1) Total Bilirubin 0.2 mg/dL (0.2-1.0) Aspartate Amino Transf (AST/SGOT) 14 U/L (15-37) Alanine Aminotransferase (ALT/SGPT) 19 U/L (14-59) Alkaline Phosphatase 82 U/L (46-116) Total Protein 7.4 g/dL (6.4-8.2) Albumin 3.7 g/dL (3.4-5.0) Albumin/Globulin Ratio 1.0 (1.0-1.7) Laboratory Tests Test 11/23/18 03:15 White Blood Count 8.6 x10^3/uL (4.0-11.0) Red Blood Count 4.32 x10^6/uL (3.50-5.40) Hemoglobin 13.7 g/dL (12.0-15.5) Hematocrit 40.5 % (36.0-47.0) Mean Corpuscular Volume 94 fL (79-100) Mean Corpuscular Hemoglobin 32 pg (25-35) Mean Corpuscular Hemoglobin Concent 34 g/dL (31-37) Red Cell Distribution Width 14.3 % (11.5-14.5) Platelet Count 227 x10^3/uL (140-400) Neutrophils (%) (Auto) 71 % (31-73) Lymphocytes (%) (Auto) 14 % (24-48) Monocytes (%) (Auto) 11 % (0-9) Eosinophils (%) (Auto) 3 % (0-3) Basophils (%) (Auto) 1 % (0-3) Neutrophils # (Auto) 6.1 x10^3uL (1.8-7.7) Lymphocytes # (Auto) 1.2 x10^3/uL (1.0-4.8) Monocytes # (Auto) 1.0 x10^3/uL (0.0-1.1) Eosinophils # (Auto) 0.3 x10^3/uL (0.0-0.7) Basophils # (Auto) 0.0 x10^3/uL (0.0-0.2) Sodium Level 140 mmol/L (136-145) Potassium Level 3.9 mmol/L (3.5-5.1) Chloride Level 103 mmol/L (98-107) Carbon Dioxide Level 29 mmol/L (21-32) Anion Gap 8 (6-14) Blood Urea Nitrogen 13 mg/dL (7-20) Creatinine 0.6 mg/dL (0.6-1.0) Estimated GFR (Cockcroft-Gault) 102.3 BUN/Creatinine Ratio 22 (6-20) Glucose Level 105 mg/dL (70-99) Calcium Level 9.6 mg/dL (8.5-10.1) Total Bilirubin 0.2 mg/dL (0.2-1.0) Aspartate Amino Transf (AST/SGOT) 14 U/L (15-37) Alanine Aminotransferase (ALT/SGPT) 19 U/L (14-59) Alkaline Phosphatase 82 U/L (46-116) Total Protein 7.4 g/dL (6.4-8.2) Albumin 3.7 g/dL (3.4-5.0) Albumin/Globulin Ratio 1.0 (1.0-1.7) Medications Active Scripts Medications Dose Route/Sig Max Daily Dose Days Date Category Fluticasone Propionate Nasal [place] (Fluticasone Propionate) 16 Gm [place].susp 16 Gm NS DAILY 11/23/18 Reported Gabapentin 300 Mg Capsule 300 Mg PO BID 11/23/18 Reported Hydroxyzine Pamoate 50 Mg Capsule 25 Mg PO PRN BID PRN 05/01/18 Reported Losartan Potassium 50 Mg Tablet 50 Mg PO DAILY 05/01/18 Reported Symbicort 160-4.5 Mcg Inhaler (Budesonide/Formoterol Fumarate) 10.2 Gm Hfa.aer.ad 2 Puff IH BID 03/05/17 Reported Cymbalta (Duloxetine Hcl) 60 Mg Capsule.dr 1 Cap PO DAILY 03/05/17 Reported Alprazolam 0.5 Mg Tablet 1 Tab PO QHS 03/05/17 Reported Montelukast Sodium Tablet (Montelukast Sodium) 10 Mg Tablet 10 Mg PO HS 03/05/17 Reported Meloxicam 15 Mg Tablet 15 Mg PO DAILY 03/05/17 Reported Omeprazole 20 Mg Capsule.dr 1 Cap PO DAILY 11/21/15 Reported Aspirin 81 Mg Tab.chew 1 Tab PO DAILY 11/21/15 Reported Benzonatate 100 Mg Capsule 1 Cap PO BID 11/21/15 Reported Albuterol Sulfate Hfa Inhaler (Albuterol Sulfate) 8.5 Gm Hfa.aer.ad 8.5 Gm IH QID 05/29/13 Reported Oxycodone-Acetaminophen 5-325 (Oxycodone Hcl/Acetaminophen) 1 Each Tablet 1 Each PO PRN Q6HRS PRN 05/29/13 Reported Duoneb 0.5 Mg-3 Mg/3 Ml Soln (Ipratropium/Albuterol Sulfate) 3 Ml Ampul.neb 3 Ml IH 05/29/13 Reported Impression . FULL CONSULT DICTATED AECOPD ACUTE PULMONARY EDEMA SUSPECT SEC TO A FIB SEE ORDERS DARIUS KWOK MD Nov 23, 2018 16:43
[2018-11-23] MEDS: FUROSEMIDE 20 MG TABLET PO SCH (16:57)
--- NOTE | 2018-11-23 18:00 | NUR ---
Pt transferred from room 517 to room 668. Received report from LENA Martin. Pt transferred via wheelchair, all belongings left with patient at time of transfer.
--- NOTE | 2018-11-23 18:12 | NUR ---
Patient transferred to . Report given to Kelechi PAREDES.
[2018-11-23] MEDS: ALPRAZolam 0.5 MG TABLET PO SCH (21:08)
[2018-11-23] MEDS: MONTELUKAST SODIUM 10 MG TABLET. PO SCH (21:08)
[2018-11-24] MEDS: guaiFENesin/CODEINE 100mg/10mg 5 ML LIQUID PO PRN ×3 (00:27→20:58)
[2018-11-24 03:45] VITALS: BP 108/60
[2018-11-24] MEDS: oxyCODONE/APAP 5/325 1 TAB TABLET PO PRN ×3 (06:34→20:58)
[2018-11-24 07:20] VITALS: BP 128/71
[2018-11-24] MEDS: IPRATRPIUM/ALBUTEROL 0.5/2.5MG 3 ML NEBU. NEB SCH ×5 (08:29→22:00)
[2018-11-24] MEDS: FLUTICASONE 50MCG/NASAL SPRAY 16GM BOTTLE. NS SCH (09:00)
[2018-11-24] MEDS: ASPIRIN CHEWABLE 81 MG TABLET. PO SCH (09:06)
[2018-11-24] MEDS: methylPREDNISolone SOD SUCC PF 125 MG/2 ML VIAL. IV SCH (09:06)
[2018-11-24] MEDS: BENZONATATE 100 MG CAPSULE. PO SCH ×2 (09:06→20:58)
[2018-11-24] MEDS: GABAPENTIN 300 MG CAPSULE. PO SCH ×2 (09:06→20:58)
[2018-11-24] MEDS: PANTOPRAZOLE 40 MG TABLET.DR. PO SCH (09:07)
[2018-11-24] MEDS: MELOXICAM 7.5 MG TABLET PO SCH (09:07)
[2018-11-24] MEDS: LOSARTAN POTASSIUM 50 MG TABLET. PO SCH (09:07)
[2018-11-24] MEDS: FUROSEMIDE 20 MG TABLET PO SCH (09:07)
[2018-11-24] MEDS: DULoxetine HCL 30 MG CAPSULE.DR PO SCH (09:07)
--- NOTE | 2018-11-24 09:12 | PDOC ---
PULMONARY PROGRESS NOTES Subjective PT FEELS BETTER NOT WHEEZING Vitals Vital Signs Date Time Temp Pulse Resp B/P (MAP) Pulse Ox O2 Delivery O2 Flow Rate FiO2 11/24/18 09:07 83 128/71 11/24/18 08:31 90 Nasal Cannula 2.0 11/24/18 07:20 97.6 20 97.6 General: Alert, Oriented X4 HEENT: Other Lungs: Clear Cardiovascular: S1, S2 Abdomen: Soft, Non-tender Extremities: No Edema Labs Laboratory Tests Test 11/23/18 03:15 White Blood Count 8.6 x10^3/uL (4.0-11.0) Red Blood Count 4.32 x10^6/uL (3.50-5.40) Hemoglobin 13.7 g/dL (12.0-15.5) Hematocrit 40.5 % (36.0-47.0) Mean Corpuscular Volume 94 fL (79-100) Mean Corpuscular Hemoglobin 32 pg (25-35) Mean Corpuscular Hemoglobin Concent 34 g/dL (31-37) Red Cell Distribution Width 14.3 % (11.5-14.5) Platelet Count 227 x10^3/uL (140-400) Neutrophils (%) (Auto) 71 % (31-73) Lymphocytes (%) (Auto) 14 % (24-48) Monocytes (%) (Auto) 11 % (0-9) Eosinophils (%) (Auto) 3 % (0-3) Basophils (%) (Auto) 1 % (0-3) Neutrophils # (Auto) 6.1 x10^3uL (1.8-7.7) Lymphocytes # (Auto) 1.2 x10^3/uL (1.0-4.8) Monocytes # (Auto) 1.0 x10^3/uL (0.0-1.1) Eosinophils # (Auto) 0.3 x10^3/uL (0.0-0.7) Basophils # (Auto) 0.0 x10^3/uL (0.0-0.2) Sodium Level 140 mmol/L (136-145) Potassium Level 3.9 mmol/L (3.5-5.1) Chloride Level 103 mmol/L (98-107) Carbon Dioxide Level 29 mmol/L (21-32) Anion Gap 8 (6-14) Blood Urea Nitrogen 13 mg/dL (7-20) Creatinine 0.6 mg/dL (0.6-1.0) Estimated GFR (Cockcroft-Gault) 102.3 BUN/Creatinine Ratio 22 (6-20) Glucose Level 105 mg/dL (70-99) Calcium Level 9.6 mg/dL (8.5-10.1) Total Bilirubin 0.2 mg/dL (0.2-1.0) Aspartate Amino Transf (AST/SGOT) 14 U/L (15-37) Alanine Aminotransferase (ALT/SGPT) 19 U/L (14-59) Alkaline Phosphatase 82 U/L (46-116) Total Protein 7.4 g/dL (6.4-8.2) Albumin 3.7 g/dL (3.4-5.0) Albumin/Globulin Ratio 1.0 (1.0-1.7) Medications Active Scripts Medications Dose Route/Sig Max Daily Dose Days Date Category Fluticasone Propionate Nasal [place] (Fluticasone Propionate) 16 Gm [place].susp 16 Gm NS DAILY 11/23/18 Reported Gabapentin 300 Mg Capsule 300 Mg PO BID 11/23/18 Reported Hydroxyzine Pamoate 50 Mg Capsule 25 Mg PO PRN BID PRN 05/01/18 Reported Losartan Potassium 50 Mg Tablet 50 Mg PO DAILY 05/01/18 Reported Symbicort 160-4.5 Mcg Inhaler (Budesonide/Formoterol Fumarate) 10.2 Gm Hfa.aer.ad 2 Puff IH BID 03/05/17 Reported Cymbalta (Duloxetine Hcl) 60 Mg Capsule.dr 1 Cap PO DAILY 03/05/17 Reported Alprazolam 0.5 Mg Tablet 1 Tab PO QHS 03/05/17 Reported Montelukast Sodium Tablet (Montelukast Sodium) 10 Mg Tablet 10 Mg PO HS 03/05/17 Reported Meloxicam 15 Mg Tablet 15 Mg PO DAILY 03/05/17 Reported Omeprazole 20 Mg Capsule.dr 1 Cap PO DAILY 11/21/15 Reported Aspirin 81 Mg Tab.chew 1 Tab PO DAILY 11/21/15 Reported Benzonatate 100 Mg Capsule 1 Cap PO BID 11/21/15 Reported Albuterol Sulfate Hfa Inhaler (Albuterol Sulfate) 8.5 Gm Hfa.aer.ad 8.5 Gm IH QID 05/29/13 Reported Oxycodone-Acetaminophen 5-325 (Oxycodone Hcl/Acetaminophen) 1 Each Tablet 1 Each PO PRN Q6HRS PRN 05/29/13 Reported Duoneb 0.5 Mg-3 Mg/3 Ml Soln (Ipratropium/Albuterol Sulfate) 3 Ml Ampul.neb 3 Ml IH 05/29/13 Reported Impression . IMPRESSION: 1. Acute respiratory insufficiency. 2. Acute exacerbation of chronic obstructive pulmonary disease. 3. [id number] diastolic heart failure. 4. Atrial fibrillation. 5. Abnormal x-ray compatible with interstitial pulmonary edema. Plan . D/W CARDIOLOGY I THINK THIS MOSTLY CHF PT WILL NEED 6 MIN WALK WILL NEED LASIX AT HOME DARIUS KWOK MD Nov 24, 2018 09:12
--- NOTE | 2018-11-24 10:13 | PDOC2 ---
CARDIAC CONSULT DATE OF CONSULT Date of Consult DATE: 11/24/18 TIME: 10:09 REASON FOR CONSULT Reason for Consult: AFIB REFERRING PHYSICIAN Referring Physician: Dr. Campos SOURCE Source: Chart review, Patient HISTORY OF PRESENT ILLNESS HISTORY OF PRESENT ILLNESS This is a 58 yo female who presented secondary to shortness of breath for the last 3 days. Has had cold, congestion, and productive cough for the last week. Became more short of breath. Wednesday, was significantly worse to she called EMS. Patient has a history of PAFIB, which prompted this consult. Denies any dizziness, diaphoresis, chest pain, palpitations, LE edema, or nausea/vomiting. PAST MEDICAL HISTORY Past Medical History Cardiovascular: AFIB (Paroxysmal), HTN Pulmonary: COPD CENTRAL NERVOUS SYSTEM: Other (no pertinent hx) GI: Other (diverticulitis ) Heme/Onc: No pertinent hx Hepatobiliary: No pertinent hx Psych: Anxiety, Depression Musculoskeletal: Osteoarthritis Rheumatologic: No pertinent hx Infectious disease: No pertinent hx ENT: No pertinent hx Renal/: No pertinent hx Endocrine: No pertinent hx Dermatology: No pertinent hx PAST SURGICAL HISTORY Past Surgical History: No pertinent history FAMILY HISTORY Family History Coronary Artery Disease (father ) SOCIAL HISTORY Social History Smoke: <1 pack per day ALCOHOL: none Drugs: None Lives: Alone CURRENT MEDICATIONS CURRENT MEDICATIONS Current Medications Medications (Trade) Dose Ordered Sig/Alan Route PRN Reason Start Time Stop Time Status Last Admin Dose Admin Albuterol/ Ipratropium (Duoneb) 3 ml Q4HRS W/A NEB 11/23/18 10:30 11/24/18 08:29 Alprazolam (Xanax) 0.5 mg QHS PO 11/23/18 21:00 11/23/18 21:08 Aspirin (Children'S Aspirin) 81 mg DAILY PO 11/23/18 11:00 11/24/18 09:06 Fluticasone Propionate (Flonase) 2 spray DAILY NS 11/23/18 11:00 11/23/18 11:04 Losartan Potassium (Cozaar) 50 mg DAILY PO 11/23/18 11:00 11/24/18 09:07 Benzonatate (Tessalon Perle) 100 mg BID PO 11/23/18 11:00 11/24/18 09:06 Duloxetine HCl (Cymbalta) 60 mg DAILY PO 11/23/18 11:00 11/24/18 09:07 Gabapentin (Neurontin) 300 mg BID PO 11/23/18 11:00 11/24/18 09:06 Meloxicam (Mobic) 15 mg DAILY PO 11/23/18 11:00 11/24/18 09:07 Montelukast Sodium (Singulair) 10 mg QHS PO 11/23/18 21:00 11/23/18 21:08 Pantoprazole Sodium (Protonix) 40 mg DAILYAC PO 11/24/18 07:30 11/24/18 09:07 Guaifenesin/ Codeine Phosphate (Robitussin Ac) 5 ml PRN Q6HRS PRN PO COUGH 11/23/18 10:30 11/24/18 09:06 Methylprednisolone Sodium Succinate (SOLU-Medrol 125MG VIAL) 62.5 mg DAILY IV 11/24/18 09:00 11/24/18 09:06 Furosemide (Lasix) 20 mg DAILY PO 11/23/18 17:00 11/24/18 09:07 ALLERGIES ALLERGIES: Coded Allergies: Penicillins (Verified Allergy, Intermediate, "SKIN PEELS OFF HANDS AND FEET", 11/21/15) Sulfa (Sulfonamide Antibiotics) (Verified Allergy, Intermediate, BLISTERS, 11/21/15) ROS Review of System 14 point ROS conducted with pertinent positives noted above in HPI. PHYSICAL EXAM PHYSICAL EXAM General: Alert, Oriented X3, Cooperative, No acute distress HEENT: Atraumatic, Mucous membr. moist/pink Lungs: Other (coarse/wheezes throughout) Heart: Regular rate, Normal S1, Normal S2, Other (tele SR, bursts of AFIB) Abdomen: Soft Extremities: No edema, Normal pulses Skin: No breakdown, No significant lesion Neuro: Normal speech, Sensation intact Psych/Mental Status: Mental status NL, Mood NL MUSCULOSKELETAL: Osteoarthritic changes both hands VITALS VITALS Vital Signs Date Time Temp Pulse Resp B/P (MAP) Pulse Ox O2 Delivery O2 Flow Rate FiO2 11/24/18 09:07 83 128/71 11/24/18 08:31 90 Nasal Cannula 2.0 11/24/18 07:20 97.6 20 97.6 ECHOCARDIOGRAM ECHOCARDIOGRAM <Conclusion> The left ventricular systolic function is normal and the ejection fraction is within normal range. The Ejection Fraction is 55-60%. There is normal LV segmental wall motion. DATE: 05/02/18 1028 STRESS TEST STRESS TEST Conclusion 1. No EKG evidence of stressed induced ischemia. 2. Nuclear imaging shows no reversible ischemia or infarct. 3. Normal left ventricular systolic function with an ejection fraction of 67%. 4. Moderately low to low risk Lexiscan nuclear stress test. DATE: 05/03/18 1214 ASSESSMENT/PLAN ASSESSMENT/PLAN 1. Acute on chronic respiratory failure with AE COPD 2. PAFIB; mainly SR. Had couple of bursts of AFIB on tele. Not on rate control therapy. 3. Hypertension; controlled 4. Hyperlipidemia: LDL 140 Recommendations Add Cardizem for rate control. [id number] score 2 correlating with a 2.2% risk for stroke per year. Discussed risk for stroke with patient along with r/b/a of OAC versus ASA for stroke prevention. Patient understands risk and would like to continue with ASA for now. Will arrange for outpatient event monitor to assess AFIB burden/guide anticoagulation therapy Supportive care SAPNA TONG APRN Nov 24, 2018 10:13
--- NOTE | 2018-11-24 10:41 | PDOC ---
[facility] PROGRESS NOTE Chief Complaint Chief Complaint Respiratory failure multifactorial including COPD and heart failure and A. fib History of Present Illness History of Present Illness Patient seen and examined Discussed with case management and Dr. Campos We are awaiting cardiology input Vitals Vitals Vital Signs Date Time Temp Pulse Resp B/P (MAP) Pulse Ox O2 Delivery O2 Flow Rate FiO2 11/24/18 09:07 83 128/71 11/24/18 08:31 90 Nasal Cannula 2.0 11/24/18 07:20 97.6 20 97.6 Physical Exam General: Alert, Oriented X3, Cooperative Heart: Other (irregular S1-S2) Lungs: Wheezing, Crackles, Other Extremities: No clubbing, No cyanosis Skin: No rashes, Other (right foot pemphigus, ) Assessment and Plan Assessmemt and Plan Problems Medical Problems: (1) COPD exacerbation Status: Acute Assessment COPD and probable heart failure and A. fib see the results of the chest x-ray right below here 1. Mild prominent bilateral interstitial lung markings likely mild congestive changes. 2. There is a density projecting in the inferior right hemithorax probably external to the patient. Plan IV steroids Nebulizers O2 per nasal cannula IV Lasix Consult cardiology Pulmonary following DVT prophylaxis Full code Home meds Comment Review of Relevant I have reviewed the following items nieves (where applicable) has been applied. Labs Laboratory Tests Test 11/23/18 03:15 White Blood Count 8.6 x10^3/uL (4.0-11.0) Red Blood Count 4.32 x10^6/uL (3.50-5.40) Hemoglobin 13.7 g/dL (12.0-15.5) Hematocrit 40.5 % (36.0-47.0) Mean Corpuscular Volume 94 fL (79-100) Mean Corpuscular Hemoglobin 32 pg (25-35) Mean Corpuscular Hemoglobin Concent 34 g/dL (31-37) Red Cell Distribution Width 14.3 % (11.5-14.5) Platelet Count 227 x10^3/uL (140-400) Neutrophils (%) (Auto) 71 % (31-73) Lymphocytes (%) (Auto) 14 % (24-48) Monocytes (%) (Auto) 11 % (0-9) Eosinophils (%) (Auto) 3 % (0-3) Basophils (%) (Auto) 1 % (0-3) Neutrophils # (Auto) 6.1 x10^3uL (1.8-7.7) Lymphocytes # (Auto) 1.2 x10^3/uL (1.0-4.8) Monocytes # (Auto) 1.0 x10^3/uL (0.0-1.1) Eosinophils # (Auto) 0.3 x10^3/uL (0.0-0.7) Basophils # (Auto) 0.0 x10^3/uL (0.0-0.2) Sodium Level 140 mmol/L (136-145) Potassium Level 3.9 mmol/L (3.5-5.1) Chloride Level 103 mmol/L (98-107) Carbon Dioxide Level 29 mmol/L (21-32) Anion Gap 8 (6-14) Blood Urea Nitrogen 13 mg/dL (7-20) Creatinine 0.6 mg/dL (0.6-1.0) Estimated GFR (Cockcroft-Gault) 102.3 BUN/Creatinine Ratio 22 (6-20) Glucose Level 105 mg/dL (70-99) Calcium Level 9.6 mg/dL (8.5-10.1) Total Bilirubin 0.2 mg/dL (0.2-1.0) Aspartate Amino Transf (AST/SGOT) 14 U/L (15-37) Alanine Aminotransferase (ALT/SGPT) 19 U/L (14-59) Alkaline Phosphatase 82 U/L (46-116) Total Protein 7.4 g/dL (6.4-8.2) Albumin 3.7 g/dL (3.4-5.0) Albumin/Globulin Ratio 1.0 (1.0-1.7) Medications Current Medications Methylprednisolone Sodium Succinate (SOLU-Medrol 125MG VIAL) 125 mg 1X ONCE IV Last administered on 11/23/18at 03:22; Start 11/23/18 at 02:45; Stop 11/23/18 at 02:59; Status DC Albuterol Sulfate (Ventolin Neb Soln) 10 mg 1X ONCE CONT NEB Last administered on 11/23/18at 02:30; Start 11/23/18 at 02:30; Stop 11/23/18 at 02:59; Status DC Albuterol Sulfate (Ventolin Neb Soln) 2.5 mg STK-MED ONCE .ROUTE ; Start 11/23/18 at 02:30; Stop 11/23/18 at 02:31; Status DC Albuterol/ Ipratropium (Duoneb) 3 ml RTQID NEB Last administered on 11/23/18at 07:52; Start 11/23/18 at 08:00; Stop 11/23/18 at 10:13; Status DC Methylprednisolone Sodium Succinate (SOLU-Medrol 125MG VIAL) 62.5 mg Q8HRS IV Last administered on 11/23/18at 13:45; Start 11/23/18 at 06:00; Stop 11/23/18 at 16:41; Status DC Oxycodone/ Acetaminophen (Percocet 5/325) 1 tab PRN Q6HRS PRN PO PAIN Last administered on 11/24/18 06:34; Start 11/23/18 at 08:15 Albuterol/ Ipratropium (Duoneb) 3 ml Q4HRS W/A NEB Last administered on 11/24/18 08:29; Start 11/23/18 at 10:30 Alprazolam (Xanax) 0.5 mg QHS PO Last administered on 11/23/18 21:08; Start 11/23/18 at 21:00 Aspirin (Children'S Aspirin) 81 mg DAILY PO Last administered on 11/24/18 09:06; Start 11/23/18 at 11:00 Fluticasone Propionate (Flonase) 2 spray DAILY NS Last administered on 11/23/18 11:04; Start 11/23/18 at 11:00 Losartan Potassium (Cozaar) 50 mg DAILY PO Last administered on 11/24/18 09:07; Start 11/23/18 at 11:00 Benzonatate (Tessalon Perle) 100 mg BID PO Last administered on 11/24/18 09:06; Start 11/23/18 at 11:00 Duloxetine HCl (Cymbalta) 60 mg DAILY PO Last administered on 11/24/18 09:07; Start 11/23/18 at 11:00 Gabapentin (Neurontin) 300 mg BID PO Last administered on 11/24/18 09:06; Start 11/23/18 at 11:00 Hydroxyzine HCl (Atarax) 25 mg PRN BID PRN PO ITCHING; Start 11/23/18 at 10:45 Meloxicam (Mobic) 15 mg DAILY PO Last administered on 11/24/18at 09:07; Start 11/23/18 at 11:00 Montelukast Sodium (Singulair) 10 mg QHS PO Last administered on 11/23/18at 21:08; Start 11/23/18 at 21:00 Pantoprazole Sodium (Protonix) 40 mg DAILYAC PO Last administered on 11/24/18at 09:07; Start 11/24/18 at 07:30 Zolpidem Tartrate (Ambien) 5 mg PRN QHS PRN PO INSOMNIA; Start 11/23/18 at 10:30 Enoxaparin Sodium (Lovenox Per Pharmacy Prophylaxis Dosing) 1 each PRN DAILY PRN MC SEE COMMENTS; Start 11/23/18 at 10:30 Guaifenesin/ Codeine Phosphate (Robitussin Ac) 5 ml PRN Q6HRS PRN PO COUGH Last administered on 11/24/18at 09:06; Start 11/23/18 at 10:30 Enoxaparin Sodium (Lovenox 40mg Syringe) 40 mg Q24H SQ ; Start 11/23/18 at 16:00 Methylprednisolone Sodium Succinate (SOLU-Medrol 125MG VIAL) 62.5 mg DAILY IV Last administered on 11/24/18at 09:06; Start 11/24/18 at 09:00 Furosemide (Lasix) 20 mg DAILY PO Last administered on 11/24/18at 09:07; Start 11/23/18 at 17:00 Diltiazem HCl (Cardizem 24hr Cd) 120 mg DAILY PO ; Start 11/24/18 at 11:00 Active Scripts Active Reported Fluticasone Propionate Nasal [place] (Fluticasone Propionate) 16 Gm [place].susp 16 Gm NS DAILY Gabapentin 300 Mg Capsule 300 Mg PO BID Hydroxyzine Pamoate 50 Mg Capsule 25 Mg PO PRN BID PRN Losartan Potassium 50 Mg Tablet 50 Mg PO DAILY Symbicort 160-4.5 Mcg Inhaler (Budesonide/Formoterol Fumarate) 10.2 Gm Hfa.aer.ad 2 Puff IH BID Cymbalta (Duloxetine Hcl) 60 Mg Capsule.dr 1 Cap PO DAILY Alprazolam 0.5 Mg Tablet 1 Tab PO QHS Montelukast Sodium Tablet (Montelukast Sodium) 10 Mg Tablet 10 Mg PO HS Meloxicam 15 Mg Tablet 15 Mg PO DAILY Omeprazole 20 Mg Capsule.dr 1 Cap PO DAILY Aspirin 81 Mg Tab.chew 1 Tab PO DAILY Benzonatate 100 Mg Capsule 1 Cap PO BID Albuterol Sulfate Hfa Inhaler (Albuterol Sulfate) 8.5 Gm Hfa.aer.ad 8.5 Gm IH QID Oxycodone-Acetaminophen 5-325 (Oxycodone Hcl/Acetaminophen) 1 Each Tablet 1 Each PO PRN Q6HRS PRN Duoneb 0.5 Mg-3 Mg/3 Ml Soln (Ipratropium/Albuterol Sulfate) 3 Ml Ampul.neb 3 Ml IH Vitals/I & O Vital Sign - Last 24 Hours 11/23/18 11/23/18 11/23/18 11/23/18 10:53 11:49 14:00 15:00 Temp 98.6 98.6 Pulse 94 89 Resp 18 B/P (MAP) 119/76 118/76 (90) Pulse Ox 93 90 O2 Delivery Room Air Room Air Room Air 11/23/18 11/23/18 11/23/18 11/23/18 16:15 17:22 18:15 19:08 Temp 98.6 97.5 98.6 97.5 Pulse 102 94 Resp 18 18 B/P (MAP) 145/73 (97) 138/76 (96) Pulse Ox 90 91 91 O2 Delivery Room Air Room Air Room Air Room Air 11/23/18 11/23/18 11/23/18 11/24/18 20:00 21:29 23:57 03:45 Temp 97.9 98.3 97.9 98.3 Pulse 103 91 Resp 16 B/P (MAP) 133/76 (95) 108/60 (76) Pulse Ox 88 90 95 O2 Delivery Room Air Room Air Room Air Room Air 11/24/18 11/24/18 11/24/18 11/24/18 06:34 07:20 07:34 08:00 Temp 97.6 97.6 Pulse 83 Resp 19 20 B/P (MAP) 128/71 (90) Pulse Ox 95 95 O2 Delivery Room Air Nasal Cannula Nasal Cannula Nasal Cannula O2 Flow Rate 2.0 2.0 2.0 11/24/18 11/24/18 08:31 09:07 Pulse 83 B/P (MAP) 128/71 Pulse Ox 90 O2 Delivery Nasal Cannula O2 Flow Rate 2.0 Intake and Output 11/23/18 11/23/18 11/24/18 15:00 23:00 07:00 Intake Total 240 ml 540 ml Balance 240 ml 540 ml KOLE ROMERO III DO Nov 24, 2018 10:41
--- NOTE | 2018-11-24 11:16 | CONS ---
DATE OF CONSULTATION: 11/23/2018 ATTENDING PHYSICIAN: Samaria Jeter D.O. CONSULTING PHYSICIAN: Darius Kwok M.D. REASON FOR CONSULTATION: The patient seen in Pulmonary consultation at the request of Dr. Jetre for acute shortness of air. HISTORY OF PRESENT ILLNESS: The patient is a 58-year-old white female with history of COPD, normally follows me in the office. She was last seen back in September with COPD of the chronic bronchitic type. She was on the Bevespi and p.r.n. albuterol and did not require oxygen. The patient reports increasing shortness of breath over the last 2-3 days with wheezing. She attempted her nebulized treatments with no significant improvement. She was admitted. I was asked to see her in consultation. I reviewed her x-ray, which revealed some increasing lung markings compatible with interstitial edema. The patient does have a diagnosis of AFib. She has not followed with a semiconductor wafers tester for quite some time. PAST MEDICAL HISTORY: Chronic AFib; anxiety; COPD; tobacco dependence, in remission and diverticulosis. PAST SURGICAL HISTORY: None. SOCIAL HISTORY: Socially, she is currently not smoking. FAMILY HISTORY: No family history of lung disorders. ALLERGIES: PENICILLIN and SULFA. REVIEW OF SYSTEMS: CONSTITUTIONAL: No fever or chills. EYES: No change in visual acuity. HEENT: No nasal congestion or sore throat. PULMONARY: As indicated above. CARDIOVASCULAR: No chest pain. No pressure. GASTROINTESTINAL: No nausea, vomiting or diarrhea. GENITOURINARY: No dysuria or frequency. MUSCULOSKELETAL: No localized muscle aches or joint pains. SKIN: No new skin rashes. NEUROLOGICAL: No headaches, diplopia or blurred vision. PHYSICAL EXAMINATION: VITAL SIGNS: Stable. O2 saturation was greater than 92% on room air. HEENT: Eyes, the sclerae were nonicteric. NECK: Jugular venous distention was not elevated. No lymphadenopathy. CHEST: Full expansion. LUNGS: Crackles and wheezes throughout both lung menon. CARDIOVASCULAR: Regular rate and rhythm with S1 and S2. No S3. ABDOMEN: Soft, nontender and nondistended. EXTREMITIES: No clubbing, cyanosis or edema. RADIOLOGICAL DATA: Chest x-ray as indicated above. LABORATORY DATA: Labs were reviewed. White count was normal. Hemoglobin and hematocrit were noted. IMPRESSION: 1. Acute respiratory insufficiency. 2. Acute exacerbation of chronic obstructive pulmonary disease. 3. Legyv-qn-saibdab diastolic heart failure. 4. Atrial fibrillation. 5. Abnormal x-ray compatible with interstitial pulmonary edema. PLAN: 1. I suspect most of the patient's wheezing was related to cardiac wheeze, the patient did not improve with breathing treatments. 2. We will consult Cardiology. 3. Baseline EKG. 4. Initiate telemetry monitoring. 5. Nebulized treatments. 6. DVT prophylaxis. 7. No need for antibiotics. 8. Decrease steroid use. I do appreciate the privilege in sharing in the patient's care. DARIUS KWOK MD DR: ALYSHA/maddie JOB#: [id number] / [id number]
[2018-11-24 11:19] VITALS: BP 133/85
--- NOTE | 2018-11-24 13:07 | CARD ---
MR#: [id number] Date of Study: 11/24/2018 Ordering Physician: SAPNA TONG, Referring Physician: Erwin CALL: Kathie Phillips APPROVED REPORT EXAM: Two-dimensional and M-mode echocardiogram with Doppler and color Doppler. Other Information Quality : AverageHR: 72bpm Technically limited study due to COPD INDICATION Atrial Fibrillation 2D DIMENSIONS RVDd2.1 (2.9-3.5cm)Left Atrium(2D)3.4 (1.6-4.0cm) IVSd1.0 (0.7-1.1cm)Aortic Root(2D)2.7 (2.0-3.7cm) LVDd5.0 (3.9-5.9cm)LVOT Diameter2.0 (1.8-2.4cm) PWd0.9 (0.7-1.1cm)LVDs3.1 (2.5-4.0cm) FS (%) 38.0 %SV78.9 ml LVEF(%)68.0 (>50%) Aortic Valve AoV Peak Deon.129.1cm/sAoV VTI25.4cm AO Peak GR.6.7mmHgLVOT Peak Deon.83.1cm/s LVOT VTI 17.98cmAO Mean GR.3mmHg LOYDA (VMAX)1.60qe4CMK (VTI)2.29cm2 Mitral Valve MV E Kgzfdunn87.0cm/sMV DECEL HIKM406oi MV A Rzdbemao55.5cm/sMV AKA32sd E/A Ratio1.8MVA (PHT)4.16cm2 TDI E/Lateral E'11.6E/Medial E'19.0 Pulmonary Valve PV Peak Czrwylcp08.6cm/sPV Peak Grad.3mmHg Tricuspid Valve TR P. Wuhqmmda365dg/sRAP MIACSPTH2xvLm TR Peak Gr.51trHdEIRL83wtCb Pulmonary Vein S1 Cwwrghtj84.1cm/sD2 Ypzuhlff82.3cm/s PVa wannmbvs925ppcl LEFT VENTRICLE The left ventricle is normal size. There is normal left ventricular wall thickness. The left ventricu lar systolic function is low normal. The Ejection Fraction is 50%. There is normal LV segmental wall motion. Transmitral Doppler flow pattern is Grade II-pseudonormal filling dynamics. RIGHT VENTRICLE The right ventricle is normal size. There is normal right ventricular wall thickness. The right ventr icular systolic function is normal. ATRIA The left atrium size is normal. The right atrium size is normal. The interatrial septum is intact wit h no evidence for an atrial septal defect or patent foramen ovale as noted on 2-D or Doppler imaging. AORTIC VALVE The aortic valve is normal in structure and function. Doppler and Color Flow revealed trace aortic re gurgitation. There is no significant aortic valvular stenosis. MITRAL VALVE The mitral valve is normal in structure and function. There is no evidence of mitral valve prolapse. There is no mitral valve stenosis. Doppler and Color-flow revealed trace mitral regurgitation. TRICUSPID VALVE The tricuspid valve is normal in structure and function. Doppler and Color Flow revealed no tricuspid valve regurgitation noted. There is no tricuspid valve stenosis. PULMONIC VALVE The pulmonic valve is not well visualized. Doppler and Color Flow revealed trace pulmonic valvular re gurgitation. GREAT VESSELS The aortic root is normal in size. The IVC is normal in size and collapses >50% with inspiration. PERICARDIAL EFFUSION There is no evidence of significant pericardial effusion. Critical Notification Critical Value: No <Conclusion> The left ventricular systolic function is low normal. The Ejection Fraction is 50%. Doppler and Color-flow revealed trace mitral regurgitation. There is no evidence of significant pericardial effusion. Signed by : Krishna Mcclendon, Electronically Approved : 11/24/2018 13:06:24
[2018-11-24 15:17] VITALS: BP 150/64
[2018-11-24] MEDS: ENOXAPARIN 40 MG/0.4 ML SYRINGE. SQ SCH (16:00)
[2018-11-24 19:10] VITALS: BP 130/67
[2018-11-24] MEDS: ALPRAZolam 0.5 MG TABLET PO SCH (20:57)
[2018-11-24] MEDS: MONTELUKAST SODIUM 10 MG TABLET. PO SCH (20:58)
[2018-11-24 23:10] VITALS: BP 116/61
[2018-11-25 03:45] VITALS: BP 132/79
[2018-11-25] MEDS: oxyCODONE/APAP 5/325 1 TAB TABLET PO PRN ×2 (03:57→15:15)
[2018-11-25] MEDS: IPRATRPIUM/ALBUTEROL 0.5/2.5MG 3 ML NEBU. NEB SCH ×3 (06:25→15:38)
[2018-11-25 07:25] VITALS: BP 119/69
[2018-11-25] MEDS: methylPREDNISolone SOD SUCC PF 125 MG/2 ML VIAL. IV SCH (08:14)
[2018-11-25] MEDS: GABAPENTIN 300 MG CAPSULE. PO SCH (08:15)
[2018-11-25] MEDS: ASPIRIN CHEWABLE 81 MG TABLET. PO SCH (08:15)
[2018-11-25] MEDS: PANTOPRAZOLE 40 MG TABLET.DR. PO SCH (08:15)
[2018-11-25] MEDS: BENZONATATE 100 MG CAPSULE. PO SCH (08:15)
[2018-11-25] MEDS: FUROSEMIDE 20 MG TABLET PO SCH (08:17)
[2018-11-25] MEDS: DULoxetine HCL 30 MG CAPSULE.DR PO SCH (08:17)
[2018-11-25] MEDS: LOSARTAN POTASSIUM 50 MG TABLET. PO SCH (08:17)
[2018-11-25] MEDS: MELOXICAM 7.5 MG TABLET PO SCH (08:18)
[2018-11-25] MEDS: FLUTICASONE 50MCG/NASAL SPRAY 16GM BOTTLE. NS SCH (09:00)
--- NOTE | 2018-11-25 11:08 | PDOC ---
PULMONARY PROGRESS NOTES Subjective PT FEELS BETTER NOT WHEEZING Vitals Vital Signs Date Time Temp Pulse Resp B/P (MAP) Pulse Ox O2 Delivery O2 Flow Rate FiO2 11/25/18 08:18 77 132/79 11/25/18 08:00 Room Air 11/25/18 07:25 97.8 18 96 2.5 97.8 General: Alert, Oriented X4 HEENT: Other Lungs: Clear Cardiovascular: S1, S2 Abdomen: Soft, Non-tender Extremities: No Edema Medications Active Scripts Medications Dose Route/Sig Max Daily Dose Days Date Category Fluticasone Propionate Nasal [place] (Fluticasone Propionate) 16 Gm [place].susp 16 Gm NS DAILY 11/23/18 Reported Gabapentin 300 Mg Capsule 300 Mg PO BID 11/23/18 Reported Hydroxyzine Pamoate 50 Mg Capsule 25 Mg PO PRN BID PRN 05/01/18 Reported Losartan Potassium 50 Mg Tablet 50 Mg PO DAILY 05/01/18 Reported Symbicort 160-4.5 Mcg Inhaler (Budesonide/Formoterol Fumarate) 10.2 Gm Hfa.aer.ad 2 Puff IH BID 03/05/17 Reported Cymbalta (Duloxetine Hcl) 60 Mg Capsule.dr 1 Cap PO DAILY 03/05/17 Reported Alprazolam 0.5 Mg Tablet 1 Tab PO QHS 03/05/17 Reported Montelukast Sodium Tablet (Montelukast Sodium) 10 Mg Tablet 10 Mg PO HS 03/05/17 Reported Meloxicam 15 Mg Tablet 15 Mg PO DAILY 03/05/17 Reported Omeprazole 20 Mg Capsule.dr 1 Cap PO DAILY 11/21/15 Reported Aspirin 81 Mg Tab.chew 1 Tab PO DAILY 11/21/15 Reported Benzonatate 100 Mg Capsule 1 Cap PO BID 11/21/15 Reported Albuterol Sulfate Hfa Inhaler (Albuterol Sulfate) 8.5 Gm Hfa.aer.ad 8.5 Gm IH QID 05/29/13 Reported Oxycodone-Acetaminophen 5-325 (Oxycodone Hcl/Acetaminophen) 1 Each Tablet 1 Each PO PRN Q6HRS PRN 05/29/13 Reported Duoneb 0.5 Mg-3 Mg/3 Ml Soln (Ipratropium/Albuterol Sulfate) 3 Ml Ampul.neb 3 Ml IH 05/29/13 Reported Impression . IMPRESSION: 1. Acute respiratory insufficiency. 2. Acute exacerbation of chronic obstructive pulmonary disease. 3. Wkecc-cp-yerhdwf diastolic heart failure. 4. Atrial fibrillation. 5. Abnormal x-ray compatible with interstitial pulmonary edema. Plan . discharge home on oxygen follow up in the office DARIUS KWOK MD Nov 25, 2018 11:08
[2018-11-25 11:20] VITALS: BP 131/70
[2018-11-25] MEDS ORDERED: FURO20TA3 PO (13:10)
[2018-11-25] MEDS ORDERED: DILT120C85 PO (13:10)
--- NOTE | 2018-11-25 14:32 | PDOC3 ---
Discharge Summary Visit Information Date of Admission: Nov 23, 2018 Date of Discharge: Nov 25, 2018 Admitting Diagnosis Comment: 1. Acute respiratory insufficiency. 2. Acute exacerbation of chronic obstructive pulmonary disease. 3. Slvot-fr-yjwsail diastolic heart failure. 4. Atrial fibrillation. 5. Abnormal x-ray compatible with interstitial pulmonary edema. Final Diagnosis Problems Medical Problems: (1) COPD exacerbation Status: Acute Brief Hospital Course Allergies Allergies Coded Allergies Type Severity Reaction Last Updated Verified Penicillins Allergy Intermediate "SKIN PEELS OFF HANDS AND FEET" 11/21/15 Yes Sulfa (Sulfonamide Antibiotics) Allergy Intermediate BLISTERS 11/21/15 Yes Vital Signs Vital Signs Date Time Temp Pulse Resp B/P (MAP) Pulse Ox O2 Delivery O2 Flow Rate FiO2 11/25/18 11:20 97.5 75 18 131/70 (90) 95 Nasal Cannula 2.5 97.5 Brief Hospital Course Ms. Tao is a 58 old white female who used to smoke, history of COPD, admitted for SOA. Some signs of mild congestion on chest x-ray. Pulmonary has consulted cardiology, thought more of diastolic heart failure rather than COPD exacerbation and was treated for both. New Rx Lasix 20 once a day, Cardizem 120- mgs qD - short run of A. fib. 6 minute walk prove that she needed oxygen 2 L upon exertion and I have provided scripts. Claims she does not need any Percocet or Xanax to home. Prednisone taper, Lasix 20 and Cardizem 120 all on file - I have provided. Planned for outpatient event monitor by cardiology Consults performed pulmonary, cardiology Procedures performed 6 minute walk, chest x-ray Patient seen and examined discussed with her, DC 32 mins> 60% DC education and counseling Discharge Information Condition at Discharge: Improved, Stable Follow Up: Weeks (pulmo 4 weeks) Disposition/Orders: D/C to Home Scheduled Albuterol Sulfate (Albuterol Sulfate Hfa Inhaler) 8.5 Gm Hfa.aer.ad, 8.5 GM IH QID, (Reported) Entered as Reported by: MALINI ALLISON on 05/29/13 0930 Last Action: Reviewed on 11/23/18 0444 by MARVIN HENNESSY RN Alprazolam (Alprazolam) 0.5 Mg Tablet, 1 TAB PO QHS, #30 (Reported) Entered as Reported by: AURELIO RIVERA on 03/05/17 1603 Last Action: Continued on 11/23/18 1014 by KIMBERLEY SCOTT Aspirin (Aspirin) 81 Mg Tab.chew, 1 TAB PO DAILY, #30 Ref 3 (Reported) Entered as Reported by: ANANDA OVALLE on 11/21/15 1138 Last Action: Continued on 11/23/18 1014 by KIMBERLEY SCOTT Benzonatate (Benzonatate) 100 Mg Capsule, 1 CAP PO BID, #30 (Reported) Entered as Reported by: ANANDA OVALLE on 11/21/15 1138 Last Action: Converted on 11/23/18 1014 by KIMBERLEY SCOTT Budesonide/Formoterol Fumarate (Symbicort 160-4.5 Mcg Inhaler) 10.2 Gm H fa.aer.ad, 2 PUFF IH BID, #10.6 Ref 3 (Reported) Entered as Reported by: AURELIO RIVERA on 03/05/17 1603 Last Action: HELD on 11/23/181013 by KIMBERLEY SCOTT Diltiazem Hcl (Diltiazem 24HR Cd) 120 Mg Cap.er.24h, 120 MG PO DAILY for htn MDD 1, #60 Prescribed by: RASHID HURTADO on 11/25/18 1310 Duloxetine Hcl (Cymbalta) 60 Mg Capsule.dr, 1 CAP PO DAILY, #90 Ref 3 (Reported) Entered as Reported by: AURELIO RIVERA on 03/05/17 1603 Last Action: Converted on 11/23/181013 by KIMBERLEY SCOTT Fluticasone Propionate (Fluticasone Propionate Nasal [place]) 16 Gm [place].susp, 16 GM NS DAILY for , (Reported) Entered as Reported by: MARVIN HENNESSY RN on 11/23/18443 Last Action: Continued on 11/23/181013 by KIMBERLEY SCOTT Furosemide (Furosemide) 20 Mg Tablet, 20 MG PO DAILY for chf MDD 1, #60 Prescribed by: RASHID HURTADO on 11/25/18 1310 Gabapentin (Gabapentin) 300 Mg Capsule, 300 MG PO BID for , (Reported) Entered as Reported by: MARVIN HENNESSY RN on 11/23/184 Last Action: Converted on 11/23/181013 by KIMBERLEY SCOTT Losartan Potassium (Losartan Potassium) 50 Mg Tablet, 50 MG PO DAILY for HTN, (Reported) Entered as Reported by: MILAGROS GIBBS on 05/01/182009 Last Action: Continued on 11/23/181013 by KIMBERLEY SCOTT Meloxicam (Meloxicam) 15 Mg Tablet, 15 MG PO DAILY, (Reported) Entered as Reported by: HA IRWIN on 03/05/17 1425 Last Action: Converted on 11/23/181013 by KIMBERLEY SCOTT Montelukast Sodium (Montelukast Sodium Tablet) 10 Mg Tablet, 10 MG PO HS for FOR ASTHMA, #30 Ref 0 (Reported) Entered as Reported by: HA IRWIN on 03/05/17 1427 Last Action: Converted on 11/23/181013 by KIMBERLEY SCOTT Omeprazole (Omeprazole) 20 Mg Capsule.dr, 1 CAP PO DAILY, #30 Ref 5 (Reported) Entered as Reported by: ANANDA OVALLE on 11/21/15 1138 Last Action: Converted on 11/23/181013 by KIMBERLEY SCOTT Scheduled PRN Hydroxyzine Pamoate (Hydroxyzine Pamoate) 50 Mg Capsule, 25 MG PO PRN BID PRN for ITCHING, (Reported) Entered as Reported by: MILAGROS GIBBS on 05/01/182009 Last Action: Converted on 11/23/181013 by KIMBERLEY SCOTT Oxycodone Hcl/Acetaminophen (Oxycodone-Acetaminophen 5-325) 1 Each Tablet, 1 EACH PO PRN Q6HRS PRN for PAIN, (Reported) Entered as Reported by: MALINI ALLISON on 05/29/13929 Last Action: Continued on 11/23/18804 by MADDY SCHREIBER Miscellaneous Medications Ipratropium/Albuterol Sulfate (Duoneb 0.5 Mg-3 Mg/3 Ml Soln) 3 Ml Ampul.neb, 3 ML IH, (Reported) Entered as Reported by: MALINI ALLISON on 05/29/13929 Last Action: HELD on 11/23/181013 by RASHID BARTON MD Nov 25, 2018 14:32
--- NOTE | 2018-11-25 15:12 | NUR ---
ADRIA phoned and faxed 02 orders to [facility] and is approved. Pt is provided 02 tank by Billy from [facility] and is informed to call once she arrives home. RN notified.
--- NOTE | 2018-11-25 16:05 | NUR ---
Discharge Note: SIL[facility] [address] [place] [address] Discharge instructions and discharge home medications reviewed with Patient and a copy given. All questions have been answered and understanding verbalized. The following instructions and handouts were given: MEDICATION LIST, ACTIVITY, AND FOLLOW UP INSTRUCTIONS. Discontinued lines and drains: Peripheral IV REMOVED AND CATHETER intact. Patient discharged to Home or Self Care with FAMILY MEMBER via [facility]
== END 2018-11-25 16:00 | disposition home or self-care (01) | DRG 291 ==
LOC: ER 02:24 → 2 NORTH 03:00 → 5 NORTH 14:03 → 6 SOUTH 18:00
PROVIDERS: ADMIT Internal Medicine; ATTEND Internal Medicine
DX: I11.0 Hypertensive heart disease with heart failure (principal); J96.20 Acute and chronic respiratory failure, unspecified whether with hypoxia or hypercapnia; J44.1 Chronic obstructive pulmonary disease with (acute) exacerbation; R65.10 Systemic inflammatory response syndrome (SIRS) of non-infectious origin without acute organ dysfunction; I48.0 Paroxysmal atrial fibrillation; I50.33 Acute on chronic diastolic (congestive) heart failure; J30.2 Other seasonal allergic rhinitis; E78.5 Hyperlipidemia, unspecified; F17.210 Nicotine dependence, cigarettes, uncomplicated; F41.8 Other specified anxiety disorders; G62.9 Polyneuropathy, unspecified; F41.9 Anxiety disorder, unspecified; M19.90 Unspecified osteoarthritis, unspecified site; I48.2 Chronic atrial fibrillation; J00 Acute nasopharyngitis [common cold]; Z79.899 Other long term (current) drug therapy; Z82.49 Family history of ischemic heart disease and other diseases of the circulatory system; Z88.0 Allergy status to penicillin; Z88.2 Allergy status to sulfonamides
CPT/HCPCS: 36415; 71045; 80053; 85025; 93005; 93306; 94618; 94640; 94644; 94760; 96374; J2930; J7613; J7620; 99285-25

== ENCOUNTER → 2019-08-22 | Outpatient (CLI) | payer OTHER ==
[~2019-08-22] MED LIST changes: +DILT120C99 PO; +FLUT16SP NS; +FURO20TA3 PO; +GABA300C9 PO; +MONT10TA49 PO; -MONT10TA9 PO; -OMEP20CA10 PO; +OMEP20CA16 PO
--- NOTE | 2019-08-23 11:53 | RAD ---
History: Routine Screening. Technique: Bilateral digital mammographic routine views were obtained with CAD - computer aided detection. Comparison: 11/04/2017. Findings: Breast Tissue Density A : The breast tissue is predominately fatty replaced. There are no suspicious masses, microcalcifications or areas of architectural distortion. Impression: Negative mammogram. BI-RADS Category 1: Negative. Normal interval followup. . A mammogram does not have 100% sensitivity and therefore a negative imaging study should not delay further work up of a suspicious abnormality. The patient will receive a letter with the results in the mail. Patient information is entered into the reminder system with a target due date for the next screening mammogram. The patient will receive a reminder. "Our facility is accredited by the [employer] Mammography Program." BI-RADS 1 -- negative findings (within normal)
== END | disposition home or self-care (01) ==
LOC: MAMMO 07:54
PROVIDERS: ATTEND Family Medicine
DX: Z12.31 Encounter for screening mammogram for malignant neoplasm of breast (principal); N64.89 Other specified disorders of breast
CPT/HCPCS: 77067

== ENCOUNTER → 2019-12-01 | Outpatient (CLI) | payer OTHER ==
--- NOTE | 2019-12-01 10:59 | KCIC ---
MR of the right knee HISTORY: Right knee pain, chronic. Pain is medial. TECHNIQUE: Routine multiplanar sequences are obtained. FINDINGS: No evidence of medial meniscal tear. No evidence of lateral meniscal tear. Anterior and posterior cruciate ligaments are intact. Medial collateral ligament demonstrates mild proximal thickening and signal compatible with a mild sprain. Iliotibial band unremarkable. Fibular collateral ligament, biceps femoris tendon and popliteus tendon are intact. Extensor mechanism is intact. Small joint effusion. No significant Vargas's cyst. No acute articular cartilage defect at the medial or lateral compartment cartilage. Dryy-lp-hvmuzwfm chondromalacia at the patellofemoral joint. No acute fracture. No aggressive bone destruction. IMPRESSION: 1. Aoki-rz-qtkzoxsk patellofemoral joint chondromalacia. 2. No evidence of meniscal tear or internal derangement. Electronically signed by: Marshall Ramos MD (12/01/2019 10:56 AM) [id number]
== END ==
LOC: KCIC MRI 08:47
PROVIDERS: ATTEND Orthopaedic Surgery
DX: M22.41 Chondromalacia patellae, right knee (principal); M25.461 Effusion, right knee
CPT/HCPCS: 73721

== ENCOUNTER 2019-12-04 05:06 | Inpatient (IN) | payer OTHER ==
[~2019-12-04] VITALS: Ht 172.7 cm; Wt 89.0 kg
--- NOTE | 2019-12-04 05:20 | PHYS DOC ---
Past Medical History Past Medical History: A-Fib, Anxiety, COPD, Diverticulitis, Other Additional Past Medical Histor: pleurisy, and shingles (ELI VARGAS Jr., DO) Past Medical History: CHF (THOMAS TRENT DO) Past Surgical History: No Surgical History (ELI VARGAS Jr., DO) Smoking Status: Current Every Day Smoker Alcohol Use: None Drug Use: None (ELI VARGAS Jr., DO) General Adult EDM: Chief Complaint: Shortness of breath HPI: HPI: Patient is a 59 year old female who presents with complaint of shortness of breath that started a few hours ago. Patient indicates that she has been having a lot of problems with exacerbations of her COPD in her room where she lives because there has been water that is been leaking into the room. She states that she had used a paper cleaner and had pulled quite a bit of water up out of the rug that was bloody in appearance. She states that when she leaves her room, and goes to the common areas, she states that her breathing improves. She states that as soon as she goes back to room, her breathing gets worse again. Patient was given a breathing treatment while in route and states that she is feeling much better at this time. She denies any chest pain or fever. [] (ELI VARGAS Jr., DO) Review of Systems: Review of Systems: Constitutional: Denies fever or chills. [] Respiratory: Complains of shortness of breath. [] Cardiovascular: Denies chest pain or edema. [] GI: Denies abdominal pain, nausea, vomiting, bloody stools or diarrhea. [] Neurologic: Denies headache, focal weakness or sensory changes. [] A full 10 point review of systems has been reviewed and is otherwise negative. (EIL VARGAS Jr. DO) Heart Score: Risk Factors: Risk Factors: DM, Current or recent (<one month) smoker, HTN, HLP, family history of CAD, obesity. Risk Scores: Score 0 - 3: 2.5% MACE over next 6 weeks - Discharge Home Score 4 - 6: 20.3% MACE over next 6 weeks - Admit for Clinical Observation Score 7 - 10: 72.7% MACE over next 6 weeks - Early Invasive Strategies (ELI VARGAS Jr., DO) Allergies: Allergies: Allergies Coded Allergies Type Severity Reaction Last Updated Verified Penicillins Allergy Intermediate "SKIN PEELS OFF HANDS AND FEET" 11/21/15 Yes Sulfa (Sulfonamide Antibiotics) Allergy Intermediate BLISTERS 11/21/15 Yes (ELI VARGAS Jr., DO) Physical Exam: PE: Constitutional: Well developed, well nourished, no acute distress, non-toxic appearance. [] HENT: Normocephalic, atraumatic, bilateral external ears normal, oropharynx moist, no oral exudates, nose normal. [] Eyes: PERRLA, EOMI, conjunctiva normal, no discharge. [] Neck: Normal range of motion, no tenderness, supple, no stridor. [] Cardiovascular: Regular rate and rhythm [] Lungs & Thorax: Bilateral breath sounds clear to auscultation [] Abdomen: Bowel sounds normal, soft, no tenderness, no masses, no pulsatile masses. [] Skin: Warm, dry, no erythema, no rash. [] Extremities: No tenderness, no cyanosis, no clubbing, ROM intact, no edema. [] Neurologic: Alert and oriented X 3, normal motor function, normal sensory function, no focal deficits noted. [] (ELI VARGAS Jr., DO) PE: Constitutional: Well developed, well nourished, no acute distress, non-toxic appearance HENT: Normocephalic, atraumatic Eyes: Conjunctiva normal, no discharge Neck: Normal range of motion, no tenderness, supple Lungs & Thorax: No respiratory distress, equal chest rise and fall Skin: Warm, dry Neurologic: Alert and oriented X 3, no focal deficits noted Psychologic: Affect normal, judgment normal (THOMAS TRENT DO) EKG: EKG: [] (ELI VARGAS Jr., DO) EKG: @0514 NSR at 85bpm, NO ST elevation, QRS 74ms, QT/QTc 398/480ms (THOMAS TRENT DO) Radiology/Procedures: Radiology/Procedures: [] (ELI VARGAS Jr., DO) Radiology/Procedures: PROCEDURE: PORTABLE CHEST 1V EXAM: CHEST ONE VIEW. HISTORY: Dyspnea. COMPARISON: 03/05/2017. FINDINGS: A frontal view of the chest is obtained. There are mild interstitial infiltrates in both bases. There is no pneumothorax or pleural effusion. The heart is not enlarged. The lungs are expanded to the 11th posterior ribs. IMPRESSION: 1. Mild bilateral interstitial infiltrates are consistent with mild pulmonary edema or atypical pneumonia. 2. Correlate for chronic obstructive pulmonary disease. Electronically signed by: Arely Fair MD (12/04/2019 6:18 AM) [facility] PROCEDURE: CT ANGIOGRAPHY CHEST CT angiography chest with contrast PQRS statement: CT scans at this facility use dose reduction including either automated exposure control, iterative reconstructions, and /or weight based radiation dosing via mA and kV modification when appropriate to reduce radiation dose to as low as reasonably achievable. TECHNIQUE: CT imaging of the chest with 3-D MIP reconstructions of the pulmonary arteries with 100 mL Omnipaque 350 intravenous contrast. HISTORY: Shortness of breath, elevated d-dimer. COMPARISON: CT chest September 30, 2018. FINDINGS: Calcified plaque thoracic aorta. Heart size normal. Esophagus unremarkable. No pulmonary artery emboli. There is mediastinal and hilar adenopathy largest mediastinal lymph nodes at the AP window measuring 1.8 x 1.3 cm and the largest hilar lymph node on the right measuring 2.5 x 1.2 cm. Trachea and bronchi are unremarkable. There is mild upper lobe paraseptal pulmonary emphysema. No pulmonary opacities. No pleural effusions. Mild dependent lower lobe groundglass density likely atelectasis as well as thin linear areas of discoid atelectasis at the lung bases. There is thin paraseptal interstitial thickening at the basilar right middle and lower lobes may represent mild pulmonary interstitial edema. Bones are unremarkable. IMPRESSION: 1. No pulmonary artery emboli. 2. Mediastinal and hilar adenopathy. This could be reactive adenopathy, a granulomatous process such as sarcoidosis, versus metastatic adenopathy or lymphoma. Consider follow-up CT imaging in 3 months versus further assessment with PET scan imaging versus lymph node sampling. 2. Mild basilar right middle and lower lobe pulmonary interstitial thickening may represent mild interstitial edema. Mild dependent groundglass densities likely atelectasis. Changes of a viral pneumonitis would be a secondary consideration. Electronically signed by: Sawyer Johnson MD (12/04/2019 7:29 AM) [id number] (THOMAS TRENT DO) Course & Med Decision Making: Course & Med Decision Making Pertinent Labs and Imaging studies reviewed. (See chart for details) [] (ELI VARGAS Jr. DO) Course & Med Decision Making 0600- Sign out received from Dr. Vargas for patient with pmh of CHF and COPD. Patient reportedly awoke early this AM with sudden SOA. Patient received duoneb in route. Patient reports chronic cough. Denies fever. Denies known exposure to COVID-19. Reports concern for "water leaking" into her apartment which causes her carpets to be wet. Patient seen and evaluated by myself. Labs partially pending at time of sign out. Labs reviewed. BNP elevated. Troponin WNL. D-dimer slightly elevated. CXR with signs of increased vascular congestion. Lasix provided. CTA chest pending. Cannot fully exclude COVID-19, although sounds less likely. Patient will still be tested as she will be admitted. Patient requiring admission for further evaluation and treatment. Discussed with Dr. Lara (hospitalist) who is in agreement with admission. Discussed findings and plan with patient, who acknowledges understanding and agreement. COVID-19 CRITERIA: The patient was evaluated during the global COVID-19 pandemic, and that diagnosis was suspected/considered upon their initial presentation. Their evaluation, treatment and testing was consistent with current guidelines for patients who present with complaints or symptoms that may be related to COVID-19. 0745- CTA without signs of PE. Some vascular congestion noted. Patient also with some atelectasis noted which could also be atypical viral infection. Will continue current plan with patient placed as PUI and COVID-19 pending. (THOMAS TRENT DO) Dragon Disclaimer: Dragon Disclaimer: This electronic medical record was generated, in whole or in part, using a voice recognition dictation system. (ELI VARGAS Jr. DO) Departure Departure Impression: Primary Impression: Acute exacerbation of CHF (congestive heart failure) Qualified Codes: I50.9 - Heart failure, unspecified Additional Impressions: COPD (chronic obstructive pulmonary disease) Qualified Codes: J44.9 - Chronic obstructive pulmonary disease, unspecified Elevated d-dimer Disposition: ADMITTED INPATIENT Admitting Physician: MALIA Holt) (THOMAS TRENT DO) Condition: STABLE Referrals: KAYE WORLEY MD (PCP) Justicifation of Admission Dx: Justifications for Admission: Justification of Admission Dx: Yes Acute COPD Exacerbation: Acute COPD Exacerbation Comments: CHF exacerbation, (THOMAS TRENT DO) COVID-19 Assessment: COVID-19 Patient Risks: Age 65 or older: No Exp to person + for COVID: No Exp to PUI: No Travel from affected area: No Lower respiratory symptoms: Yes Fever: No (THOMAS TRENT DO) PPE Use: Full PPE with N95 mask or PAPR: Yes (THOMAS TRENT DO) ELI VARGAS Jr. DO Dec 04, 2019 05:20 THOMAS TRENT DO Dec 04, 2019 07:07
[2019-12-04 05:31] LABS: BASO % 1 % (0-3); EOS # 0.1 x10^3/uL (0.0-0.7); EOS % 2 % (0-3); HEMOGLOBIN 12.5 g/dL (12.0-15.5); LYMPH % 13 % (24-48); MEAN CORPUSCULAR HEMOGLOBIN 32 pg (25-35); MEAN CORPUSCULAR HGB CONC 34 g/dL (31-37); MEAN CORPUSCULAR VOLUME 96 fL (79-100); MONO # 0.5 x10^3/uL (0.0-1.1); MONO % 6 % (0-9); NEUT # 5.9 x10^3/uL (1.8-7.7); NEUT % 79 % (31-73); PLATELET COUNT 227 x10^3/uL (140-400); RED BLOOD COUNT 3.86 x10^6/uL (3.50-5.40); WHITE BLOOD COUNT 7.5 x10^3/uL (4.0-11.0)
[2019-12-04 05:41] LABS: CALCIUM 8.8 mg/dL (8.5-10.1); CREATININE 0.9 mg/dL (0.6-1.0); GFR 63.9; POTASSIUM 3.7 mmol/L (3.5-5.1)
[2019-12-04 05:46] LABS: ALBUMIN 3.6 g/dL (3.4-5.0); ALBUMIN/GLOBULIN RATIO 1.1 (1.0-1.7); TOTAL BILIRUBIN 0.2 mg/dL (0.2-1.0); TOTAL PROTEIN 6.8 g/dL (6.4-8.2)
--- NOTE | 2019-12-04 06:11 | EKG ---
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
--- NOTE | 2019-12-04 06:21 | RAD ---
EXAM: CHEST ONE VIEW. HISTORY: Dyspnea. COMPARISON: 03/05/2017. FINDINGS: A frontal view of the chest is obtained. There are mild interstitial infiltrates in both bases. There is no pneumothorax or pleural effusion. The heart is not enlarged. The lungs are expanded to the 11th posterior ribs. IMPRESSION: 1. Mild bilateral interstitial infiltrates are consistent with mild pulmonary edema or atypical pneumonia. 2. Correlate for chronic obstructive pulmonary disease. Electronically signed by: Arely Fair MD (12/04/2019 6:18 AM) [facility]
[2019-12-04] MEDS ORDERED: IOHEXOL 350 MG/ML 100 ML VIAL. IV ONE (06:45)
[2019-12-04] MEDS ORDERED: CONTRAST GIVEN. MC PRN (06:45)
[2019-12-04] MEDS ORDERED: FUROSEMIDE 40 MG/4 ML VIAL. IVP ONE (06:45)
[2019-12-04] MEDS ORDERED: ASPIRIN 325 MG TABLET PO ONE (07:00)
--- NOTE | 2019-12-04 07:32 | RAD ---
CT angiography chest with contrast PQRS statement: CT scans at this facility use dose reduction including either automated exposure control, iterative reconstructions, and /or weight based radiation dosing via mA and kV modification when appropriate to reduce radiation dose to as low as reasonably achievable. TECHNIQUE: CT imaging of the chest with 3-D MIP reconstructions of the pulmonary arteries with 100 mL Omnipaque 350 intravenous contrast. HISTORY: Shortness of breath, elevated d-dimer. COMPARISON: CT chest September 30, 2018. FINDINGS: Calcified plaque thoracic aorta. Heart size normal. Esophagus unremarkable. No pulmonary artery emboli. There is mediastinal and hilar adenopathy largest mediastinal lymph nodes at the AP window measuring 1.8 x 1.3 cm and the largest hilar lymph node on the right measuring 2.5 x 1.2 cm. Trachea and bronchi are unremarkable. There is mild upper lobe paraseptal pulmonary emphysema. No pulmonary opacities. No pleural effusions. Mild dependent lower lobe groundglass density likely atelectasis as well as thin linear areas of discoid atelectasis at the lung bases. There is thin paraseptal interstitial thickening at the basilar right middle and lower lobes may represent mild pulmonary interstitial edema. Bones are unremarkable. IMPRESSION: 1. No pulmonary artery emboli. 2. Mediastinal and hilar adenopathy. This could be reactive adenopathy, a granulomatous process such as sarcoidosis, versus metastatic adenopathy or lymphoma. Consider follow-up CT imaging in 3 months versus further assessment with PET scan imaging versus lymph node sampling. 2. Mild basilar right middle and lower lobe pulmonary interstitial thickening may represent mild interstitial edema. Mild dependent groundglass densities likely atelectasis. Changes of a viral pneumonitis would be a secondary consideration. Electronically signed by: Sawyer Johnson MD (12/04/2019 7:29 AM) [id number]
[2019-12-04] MEDS ORDERED: LORazepam 0.5 MG TABLET PO PRN (07:45)
[2019-12-04] MEDS ORDERED: ACETAMINOPHEN 325 MG TABLET. PO PRN (07:45)
[2019-12-04] MEDS ORDERED: DOCUSATE SODIUM 100 MG CAPSULE. PO PRN (07:45)
[2019-12-04] MEDS ORDERED: guaiFENesin ORAL 200 MG/10 ML LIQUID. PO PRN (07:45)
[2019-12-04] MEDS ORDERED: ONDANSETRON PF 4 MG/2 ML VIAL. IV PRN (07:45)
[2019-12-04] MEDS ORDERED: ALBUTEROL SULFATE 2.5 MG/3 ML NEBU. NEB PRN ×2 (07:45→18:15)
[2019-12-04] MEDS ORDERED: ZOLPIDEM 5 MG TABLET. PO PRN (07:45)
[2019-12-04] MEDS ORDERED: hydrOXYzine 25 MG TABLET PO PRN (08:00)
[2019-12-04] MEDS: IPRATRPIUM/ALBUTEROL 0.5/2.5MG 3 ML NEBU. NEB SCH ×5 (08:00→21:48)
[2019-12-04] MEDS ORDERED: NON FORMULARY ITEM (Budesonide/Formoterol Fumarate (Symbicort 160-4.5 Mcg Inhaler) 2 PUFF) IH SCH (09:00)
[2019-12-04] MEDS ORDERED: ALBUTEROL SULFATE IH SCH (09:00)
[2019-12-04] MEDS: ASPIRIN CHEWABLE 81 MG TABLET. PO SCH (09:00)
[2019-12-04] MEDS: DULoxetine HCL 30 MG CAPSULE.DR PO SCH (09:53)
[2019-12-04] MEDS: MELOXICAM 7.5 MG TABLET PO SCH (09:53)
[2019-12-04] MEDS: LOSARTAN POTASSIUM 50 MG TABLET. PO SCH (09:54)
[2019-12-04] MEDS: PANTOPRAZOLE 40 MG TABLET.DR. PO SCH (09:54)
[2019-12-04] MEDS: BENZONATATE 100 MG CAPSULE. PO SCH ×2 (09:55→20:49)
[2019-12-04] MEDS: FUROSEMIDE 40 MG/4 ML VIAL. IVP SCH (09:55)
[2019-12-04] MEDS: GABAPENTIN 300 MG CAPSULE. PO SCH ×2 (09:55→20:49)
[2019-12-04] MEDS: POTASSIUM CHLORIDE 20 MEQ TABLET.ER. PO SCH (09:55)
[2019-12-04 11:00] VITALS: BP 129/77
[2019-12-04] MEDS: ALBUTEROL SULFATE 2.5 MG/3 ML NEBU. NEB SCH ×2 (12:00→16:00)
--- NOTE | 2019-12-04 12:32 | PDOC2 ---
CARDIAC CONSULT DATE OF CONSULT Date of Consult DATE: 12/04/19 TIME: 12:18 REASON FOR CONSULT Reason for Consult: CHF Exacerbation REFERRING PHYSICIAN Referring Physician: Dr. Mckeon SOURCE Source: Chart review, Patient HISTORY OF PRESENT ILLNESS HISTORY OF PRESENT ILLNESS This is a 59 yo female who presented secondary to shortness of breath. Patient reports SOA has been progressive of the last couple of weeks. Attributes her breathing problems to leak in her ceiling that has now fallen through and onto her floor. Unfortunately, her apartment complex has not fixed the issue. She denies any chest pain, palpitations, dizziness, diaphoresis, nausea/vomiting, or LE edema. Is breathing better following diuresis. PAST MEDICAL HISTORY Past Medical History Cardiovascular: AFIB (Paroxysmal), HTN Pulmonary: COPD CENTRAL NERVOUS SYSTEM: Other (no pertinent hx) GI: Other (diverticulitis ) Heme/Onc: No pertinent hx Hepatobiliary: No pertinent hx Psych: Anxiety, Depression Musculoskeletal: Osteoarthritis Rheumatologic: No pertinent hx Infectious disease: No pertinent hx ENT: No pertinent hx Renal/: No pertinent hx Endocrine: No pertinent hx Dermatology: No pertinent hx PAST SURGICAL HISTORY Past Surgical History: No pertinent history FAMILY HISTORY Family History: Coronary Artery Disease (father ) SOCIAL HISTORY Social History Smoke: <1 pack per day ALCOHOL: none Drugs: None Lives: Alone CURRENT MEDICATIONS CURRENT MEDICATIONS Current Medications Medications (Trade) Dose Ordered Sig/Alna Route PRN Reason Start Time Stop Time Status Last Admin Dose Admin Furosemide (Lasix) 40 mg 1X ONCE IVP 12/04/19 06:45 12/04/19 06:46 DC 12/04/19 06:41 Iohexol (Omnipaque 350 Mg/ml) 100 ml 1X ONCE IV 12/04/19 06:45 12/04/19 06:46 DC 12/04/19 07:12 Aspirin (Marvin Aspirin) 325 mg 1X ONCE PO 12/04/19 07:00 12/04/19 07:01 DC 12/04/19 07:12 Lorazepam (Ativan Inj) 0.5 mg 1X ONCE IVP 12/04/19 07:45 12/04/19 07:53 DC 12/04/19 09:52 Benzonatate (Tessalon Perle) 100 mg BID PO 12/04/19 09:00 12/04/19 09:55 Diltiazem HCl (Cardizem 24hr Cd) 120 mg DAILY PO 12/04/19 09:00 12/04/19 09:54 Gabapentin (Neurontin) 300 mg BID PO 12/04/19 09:00 12/04/19 09:55 Losartan Potassium (Cozaar) 50 mg DAILY PO 12/04/19 09:00 12/04/19 09:54 Duloxetine HCl (Cymbalta) 60 mg DAILY PO 12/04/19 09:00 12/04/19 09:53 Meloxicam (Mobic) 15 mg DAILY PO 12/04/19 09:00 12/04/19 09:53 Pantoprazole Sodium (Protonix) 40 mg DAILYAC PO 12/04/19 08:00 12/04/19 09:54 Furosemide (Lasix) 40 mg DAILY IVP 12/04/19 09:00 12/04/19 09:55 Potassium Chloride (Klor-Con) 20 meq DAILYWBKFT PO 12/04/19 08:00 12/04/19 09:55 ALLERGIES ALLERGIES: Coded Allergies: Penicillins (Verified Allergy, Intermediate, "SKIN PEELS OFF HANDS AND FEET", 11/21/15) Sulfa (Sulfonamide Antibiotics) (Verified Allergy, Intermediate, BLISTERS, 11/21/15) ROS Review of System 14 point ROS conducted with pertinent positives noted above in HPI PHYSICAL EXAM PHYSICAL EXAM General: Alert, Oriented X3, Cooperative, No acute distress HEENT: Atraumatic, Mucous membr. moist/pink Lungs: Other (fine expiratory wheezes) Heart: Regular rate, Normal S1, Normal S2, Other (tele SR) Abdomen: Soft Extremities: No edema, Normal pulses Skin: No breakdown, No significant lesion Neuro: Normal speech, Sensation intact Psych/Mental Status: Mental status NL, Mood NL MUSCULOSKELETAL: Osteoarthritic changes both hands VITALS/I&O VITALS/I&O: Vital Signs Date Time Temp Pulse Resp B/P (MAP) Pulse Ox O2 Delivery O2 Flow Rate FiO2 12/04/19 09:54 80 134/73 12/04/19 08:00 Nasal Cannula 2.0 12/04/19 07:10 20 98 12/04/19 05:08 98.0 98.0 LABS Lab: Laboratory Tests Test 12/04/19 05:18 12/04/19 09:45 White Blood Count 7.5 x10^3/uL (4.0-11.0) Red Blood Count 3.86 x10^6/uL (3.50-5.40) Hemoglobin 12.5 g/dL (12.0-15.5) Hematocrit 37.0 % (36.0-47.0) Mean Corpuscular Volume 96 fL (79-100) Mean Corpuscular Hemoglobin 32 pg (25-35) Mean Corpuscular Hemoglobin Concent 34 g/dL (31-37) Red Cell Distribution Width 14.0 % (11.5-14.5) Platelet Count 227 x10^3/uL (140-400) Neutrophils (%) (Auto) 79 % (31-73) H Lymphocytes (%) (Auto) 13 % (24-48) L Monocytes (%) (Auto) 6 % (0-9) Eosinophils (%) (Auto) 2 % (0-3) Basophils (%) (Auto) 1 % (0-3) Neutrophils # (Auto) 5.9 x10^3/uL (1.8-7.7) Lymphocytes # (Auto) 1.0 x10^3/uL (1.0-4.8) Monocytes # (Auto) 0.5 x10^3/uL (0.0-1.1) Eosinophils # (Auto) 0.1 x10^3/uL (0.0-0.7) Basophils # (Auto) 0.0 x10^3/uL (0.0-0.2) D-Dimer (Gabriela) 0.63 ug/mlFEU (0.00-0.50) H Sodium Level 141 mmol/L (136-145) Potassium Level 3.7 mmol/L (3.5-5.1) Chloride Level 103 mmol/L (98-107) Carbon Dioxide Level 33 mmol/L (21-32) H Anion Gap 5 (6-14) L Blood Urea Nitrogen 13 mg/dL (7-20) Creatinine 0.9 mg/dL (0.6-1.0) Estimated GFR (Cockcroft-Gault) 63.9 BUN/Creatinine Ratio 14 (6-20) Glucose Level 147 mg/dL (70-99) H Lactic Acid Level 2.1 mmol/L (0.4-2.0) H 1.0 mmol/L (0.4-2.0) Calcium Level 8.8 mg/dL (8.5-10.1) Total Bilirubin 0.2 mg/dL (0.2-1.0) Aspartate Amino Transferase (AST) 16 U/L (15-37) Alanine Aminotransferase (ALT) 28 U/L (14-59) Alkaline Phosphatase 99 U/L (46-116) Troponin I Quantitative < 0.017 ng/mL (0.000-0.055) < 0.017 ng/mL (0.000-0.055) IT-Cgl-N-Type Natriuretic Peptide 3432 pg/mL (0-124) H Total Protein 6.8 g/dL (6.4-8.2) Albumin 3.6 g/dL (3.4-5.0) Albumin/Globulin Ratio 1.1 (1.0-1.7) Laboratory Tests 12/04/19 05:18 Laboratory Tests 12/04/19 05:18 ECHOCARDIOGRAM ECHOCARDIOGRAM <Conclusion> The left ventricular systolic function is normal and the ejection fraction is within normal range. The Ejection Fraction is 55-60%. There is normal LV segmental wall motion. DATE: 05/02/18 1028 <Conclusion> The left ventricular systolic function is low normal. The Ejection Fraction is 50%. Doppler and Color-flow revealed trace mitral regurgitation. There is no evidence of significant pericardial effusion. DATE: 11/24/18 1306 STRESS TEST STRESS TEST Conclusion 1. No evidence of significant ischemia or previous myocardial infarction appreciated. 2. Ejection fraction calculated to be 60% with normal wall motion on gated SPECT images. 3. Normal nuclear imaging scan. DATE: 03/21/14 1245 Conclusion 1. No EKG evidence of stressed induced ischemia. 2. Nuclear imaging shows no reversible ischemia or infarct. 3. Normal left ventricular systolic function with an ejection fraction of 67%. 4. Moderately low to low risk Lexiscan nuclear stress test. DATE: 05/03/18 1214 ASSESSMENT/PLAN ASSESSMENT/PLAN 1. Acute respiratory failure with a/c CHF and AE COPD 2. Acute on chronic probable diastolic CHF; Echo 12/07 with LVEF 50% 3. Hypertension; controlled 4 . PAFIB; presently SR. Rate controlled with Cardizem 5. Hyperlipidemia 6. Elevated d-dimer; CTA negative for PE 7. COPD with continued tobaccoism; discussed/encourage cessation Recommendations Diuresis with monitoring of labs 2Gm Na diet. 2000cc FR Echo to assess LV systolic function once COVID has been ruled out. Continue Cardizem for rate control [id number] score 2 correlating with a 2.2% risk for stroke per year. Discussed risk for stroke with patient along with r/b/a of OAC versus ASA for stroke prevention. Patient understands risk and would like to continue with ASA for now. Consider outpatient MCOT to determine AFIB burden, guide therapy. Supportive care SAPNA TONG APRN Dec 04, 2019 12:31
--- NOTE | 2019-12-04 12:32 | CONS ---
DATE OF CONSULTATION: PULMONARY CONSULTATION ATTENDING PHYSICIAN: Brady Lara MD REASON FOR CONSULTATION: Dyspnea. HISTORY OF PRESENT ILLNESS: The patient 59-year-old female who has history of COPD and is on oxygen at night and p.r.n. during the day. She sees my partner, Dr. Campos in the office. She was brought into the hospital with increasing shortness of breath. She denies any chest pain. No cough, fever or chills. No increased leg edema. The patient said she had a leak in her ceiling and she thought that this is what that triggered the symptoms. No focal weakness. No nausea, vomiting, no diarrhea, no dysuria, and no weight loss. CT of chest was performed, which was reviewed by me. There was no evidence of pulmonary emboli. There is mild mediastinal or hilar adenopathy. The largest node was in the right hilar area 2.5 cm x 1.2 cm. The patient has evidence of interstitial thickening representing interstitial edema. I have been asked to see her for further evaluation. She was given Lasix and she is feeling better. PAST MEDICAL HISTORY: Significant for history of atrial fibrillation, anxiety, COPD, diverticulitis, pleurisy, shingles. PAST SURGICAL HISTORY: No recent surgery. ALLERGIES: PENICILLIN AND SULFA. MEDICATIONS: Reviewed as listed in the MRAD including nebulizers and Lasix. REVIEW OF SYSTEMS: Twelve-point system obtained. Pertinent positives discussed in my history of present illness, otherwise noncontributory. All systems that were negative were reviewed as well. SOCIAL HISTORY: Smoked for 45 years and still has not quit. PHYSICAL EXAMINATION: VITAL SIGNS: Reviewed. Pulse ox 98% on 2 liters, blood pressure 138/75. NECK: Supple. LUNGS: With diminished breath sounds posteriorly. CARDIOVASCULAR: With a regular rate. ABDOMEN: Soft, obese. EXTREMITIES: With no pitting edema. LABORATORY DATA: Reviewed. White cell count 7.5, hemoglobin 12.5 and platelets are 227. BUN is 13, creatinine 0.9. IMPRESSION: 1. Dyspnea/ Acute hypoxic RF, likely secondary to acute diastolic heart failure and underlying chronic obstructive pulmonary disease exacerbation. 2. CT chest with no evidence of pulmonary embolism; however, there was mild mediastinal or hilar adenopathy. This could be reactive. She also has interstitial thickening consistent with congestive heart failure on the CT chest. 3. 45 years of tobacco use with ongoing tobaccoism. RECOMMENDATIONS: 1. Continue present oxygen. The patient had acute hypoxic respiratory failure secondary to diastolic CHF and COPD. We will gradually wean FiO2, keep saturation 92 and above. 2. Smoking cessation counseling provided. 3. Continue Lasix. 4. Obtain echocardiogram. 5. The patient will need a followup CT chest regarding her mediastinal or hilar adenopathy to make sure it is resolved. The patient to follow with Dr. Campos in the office and we will arrange CT chest, prior to visit in February. 6. Discussed with RN. DAVID ALICEA MD DR: CUCO/maddie JOB#: [id number] / [id number] DARLEEN
--- NOTE | 2019-12-04 12:37 | NUR ---
SW following for discharge planning. SW reviewed chart and spoke with RN. Pt from home with home 02. Pt currently on 3l 02 and oral medications. Pt's COVID results are pending. Pt to have an echo pending COVID results. SW to continue following.
--- NOTE | 2019-12-04 13:12 | NUR ---
Pt med of hydroxine was dropped, pt refused to receive a new one, stated she didn't need it at this time anyways. ASA was given this am in ER therefore did not receive a second dose. Pt received her noon dose of nebulizer treatment. Pt feeling better now than this morning.
[2019-12-04 14:31] LABS: CHOLESTEROL/HDL RATIO 2.8
[2019-12-04] MEDS: oxyCODONE/APAP 5/325 1 TAB TABLET PO PRN (15:02)
[2019-12-04] MEDS ORDERED: ANTI-COAG MONITOR BY PHARMACY. MC PRN (15:15)
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
[2019-12-04 15:38] VITALS: BP 113/63
[2019-12-04] MEDS ORDERED: NICOTINE 7MG PATCH. TD PRN (16:00)
--- NOTE | 2019-12-04 16:24 | RAD ---
VENOUS LOWER EXTREMITY RIGHT History: Reason: Right Calf Pain; Swollen/warm; R/Oblood clot right calf/Covid pending / Spl. Instructions: / History: Comparison: None. Discussion: Multiple longitudinal and transverse high resolution real-time images of the venous system of right lower extremity were obtained with color and Doppler sampling. The common femoral, superficial femoral, popliteal and proximal calf veins are all patent and demonstrate normal flow and compressibility. Normal respiratory phasicity and augmentation is present. Impression: 1. No evidence of deep vein thrombosis. Electronically signed by: Thee Marmolejo DO (12/04/2019 4:21 PM) [facility]
[2019-12-04] MEDS ORDERED: MAGNESIUM OXIDE 400 MG TABLET PO ONE (17:00)
[2019-12-04] MEDS ORDERED: BUDESONIDE 0.5 MG/2 ML NEBU. NEB PRN (18:15)
[2019-12-04 19:00] VITALS: BP 134/76
[2019-12-04] MEDS ORDERED: BUDESONIDE 0.5 MG/2 ML NEBU. NEB SCH (20:00)
[2019-12-04] MEDS ORDERED: MONTELUKAST SODIUM 10 MG TABLET. PO SCH (21:00)
[2019-12-04] MEDS ORDERED: ALPRAZolam 0.5 MG TABLET PO SCH (21:00)
[2019-12-04] MEDS ORDERED: ALBUTEROL SULFATE 8GM INHALER. INH PRN (21:15)
[2019-12-04 22:53] VITALS: BP 135/74
[2019-12-05 03:00] VITALS: BP 141/77
[2019-12-05] MEDS: oxyCODONE/APAP 5/325 1 TAB TABLET PO PRN ×2 (06:00→13:42)
[2019-12-05] MEDS: PANTOPRAZOLE 40 MG TABLET.DR. PO SCH (06:00)
[2019-12-05 07:00] VITALS: BP 142/75
[2019-12-05] MEDS: BENZONATATE 100 MG CAPSULE. PO SCH (08:01)
[2019-12-05] MEDS: DULoxetine HCL 30 MG CAPSULE.DR PO SCH (08:01)
[2019-12-05] MEDS: GABAPENTIN 300 MG CAPSULE. PO SCH (08:01)
[2019-12-05] MEDS: MELOXICAM 7.5 MG TABLET PO SCH (08:01)
[2019-12-05] MEDS: ASPIRIN CHEWABLE 81 MG TABLET. PO SCH (08:01)
[2019-12-05] MEDS: LOSARTAN POTASSIUM 50 MG TABLET. PO SCH (08:01)
[2019-12-05] MEDS: FUROSEMIDE 40 MG/4 ML VIAL. IVP SCH (08:02)
[2019-12-05] MEDS: POTASSIUM CHLORIDE 20 MEQ TABLET.ER. PO SCH (08:07)
[2019-12-05] MEDS ORDERED: MAGNESIUM OXIDE 400 MG TABLET PO SCH (09:00)
[2019-12-05] MEDS: IPRATRPIUM/ALBUTEROL 0.5/2.5MG 3 ML NEBU. NEB SCH ×2 (09:10→11:34)
--- NOTE | 2019-12-05 10:16 | PDOC ---
SAPNA TONG AIRCRAFT LOG CLERK 12/05/19 1016: CARDIO Progress Notes Date and Time Date of Service 12/05/19 Time of Evaluation 1015 Subjective Subjective: No Chest Pain, No Palpitations, No Dizziness, Other (breathing much better today) Vitals Vitals Vital Signs Date Time Temp Pulse Resp B/P (MAP) Pulse Ox O2 Delivery O2 Flow Rate FiO2 12/05/19 09:10 98 Nasal Cannula 2.0 12/05/19 08:02 82 142/75 12/05/19 07:00 97.5 18 97.5 Weight Weight [ ] Input and Output Intake and Output Intake and Output 12/05/19 07:00 Intake Total 1070 ml Output Total 3150 ml Balance -2080 ml Intake Oral 1060 ml Blood Product IV Normal Saline Flush 10 ml Output Urine Total 3150 ml # Voids 6 Laboratory Labs Laboratory Tests Test 12/04/19 12:45 Magnesium Level 1.7 mg/dL (1.8-2.4) Troponin I Quantitative < 0.017 ng/mL (0.000-0.055) Microbiology Micro Microbiology 12/04/19 Blood Culture - Preliminary, Resulted NO GROWTH AFTER 1 DAY Physical Exam HEENT: Neck Supple W Full Motion LUNGS: Clear to Auscultation Heart: S1S2, RRR Abdomen: Soft N/T Extremities: No Edema Neurology: alert, oriented, follow commands Assessment Assessment 1. Acute respiratory failure with a/c CHF and AE COPD. COVID negative 2. Acute on chronic probable diastolic CHF; Echo 12/07 with LVEF 50% 3. Hypertension; controlled 4 . PAFIB; presently SR. Rate controlled with Cardizem 5. Hyperlipidemia 6. Elevated d-dimer; CTA negative for PE 7. COPD with continued tobaccoism; discussed/encourage cessation Recommendations Oral Lasix therapy 2Gm Na diet. 2000cc FR Echo today Continue Cardizem for rate control ASA for stroke prophylaxis. Consider outpatient MCOT to determine AFIB burden, guide therapy. Supportive care Follow up in our office with Dr. Zarate as scheduled. Justicifation of Admission Dx: Justifications for Admission: Justification of Admission Dx: Yes Respiratory Failure: Severe Resp Distress BRIANNA SCOTT MD 12/05/19 1651: CARDIO Progress Notes Plan Plan Pt. seen and examined. Agree with above AWNING SPREADER note. Supportive care. Will f/u with Dr. McSweyn. No new cardiac issues. Echo unremarkable. thanks SAPNA TONG APRN Dec 05, 2019 10:16 BRIANNA SCOTT MD Dec 05, 2019 16:51
--- NOTE | 2019-12-05 10:35 | PDOC ---
PULMONARY PROGRESS NOTES Subjective no soa wants to go home Vitals Vital Signs Date Time Temp Pulse Resp B/P (MAP) Pulse Ox O2 Delivery O2 Flow Rate FiO2 12/05/19 09:10 98 Nasal Cannula 2.0 12/05/19 08:02 82 142/75 12/05/19 07:00 97.5 18 97.5 General: Alert, Oriented X4 HEENT: Other Lungs: Clear Cardiovascular: S1, S2 Abdomen: Soft, Non-tender Neuro Exam: Alert Extremities: No Edema Labs Laboratory Tests Test 12/04/19 05:18 12/04/19 07:11 12/04/19 09:45 12/04/19 12:45 White Blood Count 7.5 x10^3/uL (4.0-11.0) Red Blood Count 3.86 x10^6/uL (3.50-5.40) Hemoglobin 12.5 g/dL (12.0-15.5) Hematocrit 37.0 % (36.0-47.0) Mean Corpuscular Volume 96 fL (79-100) Mean Corpuscular Hemoglobin 32 pg (25-35) Mean Corpuscular Hemoglobin Concent 34 g/dL (31-37) Red Cell Distribution Width 14.0 % (11.5-14.5) Platelet Count 227 x10^3/uL (140-400) Neutrophils (%) (Auto) 79 % (31-73) Lymphocytes (%) (Auto) 13 % (24-48) Monocytes (%) (Auto) 6 % (0-9) Eosinophils (%) (Auto) 2 % (0-3) Basophils (%) (Auto) 1 % (0-3) Neutrophils # (Auto) 5.9 x10^3/uL (1.8-7.7) Lymphocytes # (Auto) 1.0 x10^3/uL (1.0-4.8) Monocytes # (Auto) 0.5 x10^3/uL (0.0-1.1) Eosinophils # (Auto) 0.1 x10^3/uL (0.0-0.7) Basophils # (Auto) 0.0 x10^3/uL (0.0-0.2) D-Dimer (Gabriela) 0.63 ug/mlFEU (0.00-0.50) Sodium Level 141 mmol/L (136-145) Potassium Level 3.7 mmol/L (3.5-5.1) Chloride Level 103 mmol/L (98-107) Carbon Dioxide Level 33 mmol/L (21-32) Anion Gap 5 (6-14) Blood Urea Nitrogen 13 mg/dL (7-20) Creatinine 0.9 mg/dL (0.6-1.0) Estimated GFR (Cockcroft-Gault) 63.9 BUN/Creatinine Ratio 14 (6-20) Glucose Level 147 mg/dL (70-99) Lactic Acid Level 2.1 mmol/L (0.4-2.0) 1.0 mmol/L (0.4-2.0) Calcium Level 8.8 mg/dL (8.5-10.1) Total Bilirubin 0.2 mg/dL (0.2-1.0) Aspartate Amino Transf (AST/SGOT) 16 U/L (15-37) Alanine Aminotransferase (ALT/SGPT) 28 U/L (14-59) Alkaline Phosphatase 99 U/L (46-116) Troponin I Quantitative < 0.017 ng/mL (0.000-0.055) < 0.017 ng/mL (0.000-0.055) < 0.017 ng/mL (0.000-0.055) FN-Twi-Y-Type Natriuretic Peptide 3432 pg/mL (0-124) Total Protein 6.8 g/dL (6.4-8.2) Albumin 3.6 g/dL (3.4-5.0) Albumin/Globulin Ratio 1.1 (1.0-1.7) Triglycerides Level 58 mg/dL (0-150) Cholesterol Level 124 mg/dL (0-200) LDL Cholesterol, Calculated 67 mg/dL (0-100) VLDL Cholesterol, Calculated 12 mg/dL (0-40) Non-HDL Cholesterol Calculated 79 mg/dL (0-129) HDL Cholesterol 45 mg/dL (40-60) Cholesterol/HDL Ratio 2.8 Thyroid Stimulating Hormone (TSH) 0.870 uIU/mL (0.358-3.74) Coronavirus (COVID-19)(PCR) Not detected (NOT DETECT.) Magnesium Level 1.7 mg/dL (1.8-2.4) Laboratory Tests Test 12/04/19 12:45 Magnesium Level 1.7 mg/dL (1.8-2.4) Troponin I Quantitative < 0.017 ng/mL (0.000-0.055) Medications Active Scripts Medications Dose Route/Sig Max Daily Dose Days Date Category Furosemide 20 Mg Tablet 20 Mg PO DAILY MDD 1 11/25/18 Rx Diltiazem 24HR Cd (Diltiazem Hcl) 120 Mg Cap.er.24h 120 Mg PO DAILY MDD 1 11/25/18 Rx Fluticasone Propionate Nasal [place] (Fluticasone Propionate) 16 Gm [place].susp 16 Gm NS DAILY 11/23/18 Reported Gabapentin 300 Mg Capsule 300 Mg PO BID 11/23/18 Reported Hydroxyzine Pamoate 50 Mg Capsule 25 Mg PO PRN BID PRN 05/01/18 Reported Losartan Potassium 50 Mg Tablet 50 Mg PO DAILY 05/01/18 Reported Symbicort 160-4.5 Mcg Inhaler (Budesonide/Formoterol Fumarate) 10.2 Gm Hfa.aer.ad 2 Puff IH BID 03/05/17 Reported Cymbalta (Duloxetine Hcl) 60 Mg Capsule.dr 1 Cap PO DAILY 03/05/17 Reported Alprazolam 0.5 Mg Tablet 1 Tab PO QHS 03/05/17 Reported Montelukast Sodium Tablet (Montelukast Sodium) 10 Mg Tablet 10 Mg PO HS 03/05/17 Reported Meloxicam 15 Mg Tablet 15 Mg PO DAILY 03/05/17 Reported Omeprazole 20 Mg Capsule.dr 1 Cap PO DAILY 11/21/15 Reported Aspirin 81 Mg Tab.chew 1 Tab PO DAILY 11/21/15 Reported Benzonatate 100 Mg Capsule 1 Cap PO BID 11/21/15 Reported Albuterol Sulfate Hfa Inhaler (Albuterol Sulfate) 8.5 Gm Hfa.aer.ad 8.5 Gm IH QID 05/29/13 Reported Oxycodone-Acetaminophen 5-325 (Oxycodone Hcl/Acetaminophen) 1 Each Tablet 1 Each PO PRN Q6HRS PRN 05/29/13 Reported Duoneb 0.5 Mg-3 Mg/3 Ml Soln (Ipratropium/Albuterol Sulfate) 3 Ml Ampul.neb 3 Ml IH 05/29/13 Reported Impression . 1. Dyspnea/ Acute hypoxic RF, likely secondary to acute diastolic heart failure and underlying chronic obstructive pulmonary disease exacerbation. 2. CT chest with no evidence of pulmonary embolism; however, there was mild mediastinal or hilar adenopathy. This could be reactive. She also has interstitial thickening consistent with congestive heart failure on the CT chest. 3. 45 years of tobacco use with ongoing tobaccoism. Plan . RECOMMENDATIONS: 1. Continue present oxygen. We will gradually wean FiO2, keep saturation 92 and above. 2. Smoking cessation counseling provided. 3. Continue Lasix. 4. Obtain echocardiogram. 5. The patient will need a followup CT chest regarding her mediastinal or hilar adenopathy to make sure it is resolved. The patient to follow with Dr. Campos in the office in february and we will arrange CT chest, prior to visit in February. 6. Discussed with RN. antonio with DAVID Ramirez MD Dec 05, 2019 10:35
[2019-12-05 10:44] VITALS: BP 132/85
--- NOTE | 2019-12-05 12:05 | SNU/HH DC ---
DISCHARGE WITH HOME HEALTH DISCHARGE INFORMATION: Final Diagnosis: Problems Medical Problems: (1) Acute exacerbation of CHF (congestive heart failure) Status: Acute (2) COPD (chronic obstructive pulmonary disease) Status: Acute (3) Elevated d-dimer Status: Acute Condition on Discharge: Stable CODE STATUS: Code Status: Full HOME HEALTH: Face to Face: I certify this patient is under my care and that I, or a nurse practitioner or physician's psychiatric nursing assistant working with me, had a face to face encounter that meets the physician face to face encounter requirements with this patient on []. Medical Complications: COPD RN For Eval/Treatment: Yes Physical Therapy For: Evalulation/Treatment Speech Language Pathology For: Evaluation/Treatment Home Health Aide For: Self-care WAREHOUSE SHIFT SUPERVISOR For: Community Resources Pt Meets Homebound Status: Unsteady balance w/ amb, POST DISCHARGE ORDERS: Activity Instructions for Disc: Activity as tolerated Weight Bearing Status after Di: As tolerated DIET AFTER DISCHARGE: Cardiac Wound/Incision Care: No wound care needed TREATMENT/EQUIPMENT ORDERS: Adaptive Equipment Issued: None Discharge Respiratory Equipmen: Oxygen CERTIFICATION STATEMENT: Certification Statement: Certification Statement: Based on the above finding, I certify that this patient is confined to the home and needs intermittent long term care, physical therapy and/or speech therapy, or continues to need occupational therapy.~ This patient is under my care, and I have initiated the establishment of the plan of care.~ This patient will be followed by myself or a community physician who will periodically review the plan of care. Home Meds Active Scripts Furosemide (FUROSEMIDE) 20 Mg Tablet, 20 MG PO DAILY for chf MDD 1, #60 TAB Prov:RASHID HURTADO MD 11/25/18 Diltiazem Hcl (DILTIAZEM 24HR CD) 120 Mg Cap.er.24h, 120 MG PO DAILY for htn MDD 1, #60 CAP.SR Prov:RASHID HURTADO MD 11/25/18 Reported Medications Fluticasone Propionate (FLUTICASONE PROPIONATE NASAL SPRAY) 16 Gm [place].susp, 16 GM NS DAILY for 11/23/18 Gabapentin (Gabapentin) 300 Mg Capsule, 300 MG PO BID for 11/23/18 Hydroxyzine Pamoate (HYDROXYZINE PAMOATE) 50 Mg Capsule, 25 MG PO PRN BID PRN for ITCHING, CAP 05/01/18 Losartan Potassium (LOSARTAN POTASSIUM) 50 Mg Tablet, 50 MG PO DAILY for HTN, TAB 05/01/18 Budesonide/Formoterol Fumarate (SYMBICORT 160-4.5 MCG INHALER) 10.2 Gm Hfa.aer.ad, 2 PUFF IH BID, #10.6 GM 3 Refills 03/05/17 Duloxetine Hcl (CYMBALTA) 60 Mg Capsule.dr, 1 CAP PO DAILY, #90 CAP 3 Refills 03/05/17 Alprazolam (ALPRAZOLAM) 0.5 Mg Tablet, 1 TAB PO QHS, #30 TAB 03/05/17 Montelukast Sodium (MONTELUKAST SODIUM TABLET ) 10 Mg Tablet, 10 MG PO HS for FOR ASTHMA, #30 TAB 0 Refills 03/05/17 Meloxicam (MELOXICAM) 15 Mg Tablet, 15 MG PO DAILY, TAB 03/05/17 Omeprazole (OMEPRAZOLE) 20 Mg Capsule.dr, 1 CAP PO DAILY, #30 CAP 5 Refills 11/21/15 Aspirin (ASPIRIN) 81 Mg Tab.chew, 1 TAB PO DAILY, #30 TAB 3 Refills 11/21/15 Benzonatate (BENZONATATE) 100 Mg Capsule, 1 CAP PO BID, #30 CAP 11/21/15 Albuterol Sulfate (ALBUTEROL SULFATE HFA INHALER) 8.5 Gm Hfa.aer.ad, 8.5 GM IH QID 05/29/13 Oxycodone Hcl/Acetaminophen (OXYCODONE-ACETAMINOPHEN 5-325) 1 Each Tablet, 1 EACH PO PRN Q6HRS PRN for PAIN 05/29/13 Ipratropium/Albuterol Sulfate (DUONEB 0.5 MG-3 MG/3 ML SOLN) 3 Ml Ampul.neb, 3 ML IH 05/29/13 KOLE ROMERO III DO Dec 05, 2019 12:05
--- NOTE | 2019-12-05 12:47 | DS ---
DATE OF DISCHARGE: ADMISSION DIAGNOSIS: Chronic obstructive pulmonary disease. DISCHARGE DIAGNOSES: Resolving chronic obstructive pulmonary disease and heart failure. HOSPITAL COURSE: The patient is a pleasant 59-year-old female who presented with multifactorial respiratory failure. She had COPD and CHF. She was admitted. We consulted Cardiology and Pulmonary, gave her breathing treatments, oxygen. Cardiac monitoring. Today, when I saw and examined, she was at her baseline. Heart tones are normal. Lungs are clear, but diminished. I discussed the case with the nurse and Pulmonary. We plan to discharge with close outpatient followup. DISPOSITION: Home. ACTIVITY: As tolerated. DIET: Low sodium. MEDICATIONS: Please see the MRAD. TOTAL TIME: 32 minutes. KOLE ROMERO DO DR: ANGEL/maddie JOB#: [id number] / [id number]
--- NOTE | 2019-12-05 14:02 | CARD ---
MR#: [id number] Account#: Date of Study: 12/05/2019 Ordering Physician: Erwin: Haylee Sarmiento RDCS APPROVED REPORT EXAM: Two-dimensional and M-mode echocardiogram with Doppler and color Doppler. Other Information Quality : Good INDICATION Congestive Heart Failure 2D DIMENSIONS RVDd2.0 (2.9-3.5cm)Left Atrium(2D)3.6 (1.6-4.0cm) IVSd1.0 (0.7-1.1cm)Aortic Root(2D)2.5 (2.0-3.7cm) LVDd5.1 (3.9-5.9cm)LVOT Diameter1.9 (1.8-2.4cm) PWd1.0 (0.7-1.1cm)LVDs3.8 (2.5-4.0cm) FS (%) 24.7 %SV59.8 ml LVEF(%)48.0 (>50%) Aortic Valve AoV Peak Deon.134.6cm/sAoV VTI25.1cm AO Peak GR.7.2mmHgLVOT Peak Deon.113.7cm/s AO Mean GR.4mmHgAVA (VMAX)2.44cm2 LOYDA (VTI)2.60cm2 Mitral Valve MV E Abdoxcgn352.2cm/sMV DECEL IIVI637wr MV A Ajficsxc65.9cm/sE/A Ratio2.1 Tricuspid Valve TR P. Uxoervpq273pl/sRAP SZGOPTYM3zwNk TR Peak Gr.07shXaNZUI27zwHa Pulmonary Vein S1 Xbwrvrgv72.4cm/sD2 Miybkyho47.3cm/s LEFT VENTRICLE The left ventricle is normal size. There is normal left ventricular wall thickness. Left ventricle sy stolic function is low normal. The Ejection Fraction is 50%. Transmitral Doppler flow pattern is Grad e II-pseudonormal filling dynamics. RIGHT VENTRICLE The right ventricle is normal size. The right ventricular systolic function is normal. ATRIA The left atrium size is normal. The right atrium size is normal. The interatrial septum is intact wit h no evidence for an atrial septal defect or patent foramen ovale as noted on 2-D or Doppler imaging. AORTIC VALVE The aortic valve is calcified but opens well. Doppler and Color Flow revealed no significant aortic r egurgitation. There is no significant aortic valvular stenosis. MITRAL VALVE The mitral valve is calcified but opens well. There is no evidence of mitral valve prolapse. There is no mitral valve stenosis. Doppler and Color-flow revealed trace mitral regurgitation. TRICUSPID VALVE The tricuspid valve is normal in structure and function. Doppler and Color Flow revealed no tricuspid valve regurgitation noted. There is no tricuspid valve stenosis. PULMONIC VALVE The pulmonic valve is not well visualized. Doppler and Color Flow revealed trace pulmonic valvular re gurgitation. There is no pulmonic valvular stenosis. GREAT VESSELS The aortic root is normal in size. The ascending aorta is normal in size. The IVC is normal in size a nd collapses >50% with inspiration. PERICARDIAL EFFUSION There is no evidence of significant pericardial effusion. Critical Notification Critical Value: No <Conclusion> Left ventricle systolic function is low normal. The Ejection Fraction is 50%. Transmitral Doppler flow pattern is Grade II-pseudonormal filling dynamics. Doppler and Color-flow revealed trace mitral regurgitation. There is no evidence of significant pericardial effusion. Signed by : Krishna Mcclendon, Electronically Approved : 12/05/2019 13:43:34
--- NOTE | 2019-12-05 14:54 | NUR ---
Discharge Note: PT DISCHARGED HOME WITH SELF CARE. PT LEFT FACILITY VIA PRIVATE VEHICLE WITH FRIEND AT 1450. PT STABLE AND ALERT UPON DISCHARGE. PT PIV REMOVED FROM R WRIST WITHOUT COMPLICATIONS, BANDAGE APPLIED. PT EDUCATED ABOUT DISCHARGE INSTRUCTIONS, DISCHARGE MEDICATIONS, FOLLOW-UP APPOINTMENTS AND CARE. PT VOICED NO CONCERNS AT THIS TIME. PT LEFT WITH ALL PERSONAL BELONGINGS. SILVIA JOHN Discharge instructions and discharge home medications reviewed with Patient and a copy given. All questions have been answered and understanding verbalized.
--- NOTE | 2019-12-05 14:59 | NUR ---
SW following for discharge planning. SW consulted per pt request to speak with SW. SW reviewed chart and coordinated care with RN. SW met with pt. Pt resides in [place] at [facility]. Pt stated that she has lived there for 4 years and is independent with ADLS and IADLS. Pt stated she drives. Pt on oral medications and 2l 02. Pt has home 02 and stated her friend will provide transportation home per discharge today, 12/05/2019. Pt stated she requested to speak with this SW as she wondered about options for maintenance at her apartment to fix the leak in her ceiling. Pt reported that she has talked with management, the chick grader, APS, and [facility] housing about fixing the leak, but to no avail. Pt requested that this SW medical affairs manager Bhargavi Stewart at [phone]. SW did complete the Patient Choice of Vendor form and contacted the recruitment manager at the request of patient. SW informed by Bhargavi that the "regional preventive maintenance engineer was not able to find a leak to be fixed," but that she would see about having somebody call this SW back. SW left contact information. No additional SW needs at this time.
== END 2019-12-05 14:50 | disposition home or self-care (01) | DRG 291 ==
LOC: ER 05:06 → 6 SOUTH 07:09
PROVIDERS: ADMIT Internal Medicine; ATTEND Internal Medicine
DX: I11.0 Hypertensive heart disease with heart failure (principal); J96.01 Acute respiratory failure with hypoxia; J44.0 Chronic obstructive pulmonary disease with (acute) lower respiratory infection; J44.1 Chronic obstructive pulmonary disease with (acute) exacerbation; J98.11 Atelectasis; I50.33 Acute on chronic diastolic (congestive) heart failure; E78.5 Hyperlipidemia, unspecified; F17.210 Nicotine dependence, cigarettes, uncomplicated; F32.9 Major depressive disorder, single episode, unspecified; F41.9 Anxiety disorder, unspecified; M19.90 Unspecified osteoarthritis, unspecified site; I48.0 Paroxysmal atrial fibrillation; Z20.828 Contact with and (suspected) exposure to other viral communicable diseases; Z82.49 Family history of ischemic heart disease and other diseases of the circulatory system; Z88.0 Allergy status to penicillin; Z88.2 Allergy status to sulfonamides; Z71.6 Tobacco abuse counseling
CPT/HCPCS: 36415; 71045; 71275; 80053; 80061; 83605; 83735; 83880; 84443; 84484; 85025; 85379; 87040; 93005; 93306; 93971; 94640; 94760; 96374; 99285; J1650; J1940; J2060; Q9967; G0378; U0003-CS

== ENCOUNTER 2019-12-11 15:51 | Emergency (ER) | payer OTHER ==
[~2019-12-11] VITALS: Ht 172.7 cm; Wt 81.8 kg
[2019-12-11 16:49] LABS: BASO # 0.1 x10^3/uL (0.0-0.2); BASO % 1 % (0-3); EOS # 0.2 x10^3/uL (0.0-0.7); EOS % 1 % (0-3); HEMATOCRIT 40.2 % (36.0-47.0); HEMOGLOBIN 14.1 g/dL (12.0-15.5); LYMPH # 1.5 x10^3/uL (1.0-4.8); LYMPH % 13 % (24-48); MEAN CORPUSCULAR HEMOGLOBIN 33 pg (25-35); MEAN CORPUSCULAR HGB CONC 35 g/dL (31-37); MEAN CORPUSCULAR VOLUME 94 fL (79-100); MONO % 9 % (0-9); NEUT # 8.6 x10^3/uL (1.8-7.7); NEUT % 76 % (31-73); PLATELET COUNT 260 x10^3/uL (140-400); RED BLOOD COUNT 4.27 x10^6/uL (3.50-5.40); RED CELL DISTRIBUTION WIDTH 13.4 % (11.5-14.5); WHITE BLOOD COUNT 11.3 x10^3/uL (4.0-11.0)
--- NOTE | 2019-12-11 16:56 | RAD ---
AP chest. HISTORY: Short of air AP view was taken of the chest. Lungs are free of infiltrates. Heart is normal in size. There is no pleural effusion. IMPRESSION: 1. No acute chest disease. Electronically signed by: Ernie Barbour MD (12/11/2019 4:53 PM) [id number]
--- NOTE | 2019-12-11 16:58 | RAD ---
EXAM: CT Head without IV contrast CLINICAL HISTORY: dizziness COMPARISON: None. TECHNIQUE: Routine CT of the head without contrast. Soft tissues and bone windows were reviewed. PQRS compliance statement - One or more of the following individualized dose reduction techniques were utilized for this study: 1. Automated exposure control 2. Adjustment of the mA and/or kV according to patient size 3. Use of iterative reconstruction technique FINDINGS: There is no evidence of hemorrhage, mass or extra-axial fluid collection. Riggins-white differentiation is maintained with no evidence of edema. There is no mass effect or shift of the intracranial structures. The ventricles, basilar cisterns and cortical sulci are normal in size and configuration for the patients stated age. The cerebellum and brainstem are unremarkable. The calvarium demonstrates no evidence of fracture or focal lesion. There is normal aeration of the visualized paranasal sinuses and mastoid air cells. The visualized portions of the orbits are normal. IMPRESSION: No evidence for acute intracranial process. Electronically signed by: Ryan Fischer MD (12/11/2019 4:55 PM) TAYLOR
[2019-12-11 17:09] LABS: CALCIUM 8.9 mg/dL (8.5-10.1); CREATININE 1.8 mg/dL (0.6-1.0); GFR 28.7; POTASSIUM 4.8 mmol/L (3.5-5.1)
[2019-12-11 17:15] LABS: ALBUMIN 3.8 g/dL (3.4-5.0); TOTAL BILIRUBIN 0.4 mg/dL (0.2-1.0); TOTAL PROTEIN 7.6 g/dL (6.4-8.2)
--- NOTE | 2019-12-11 17:46 | PHYS DOC ---
Past Medical History Past Medical History: A-Fib, Anxiety, COPD, Fibromyalgia, High Cholesterol, Hypertension Additional Past Medical Histor: pleurisy, and shingles Past Surgical History: No Surgical History Smoking Status: Current Every Day Smoker Alcohol Use: None Drug Use: None General Adult EDM: Chief Complaint: DIZZY/LIGHT HEADED HPI: HPI: Patient is a 59-year-old female with multiple medical problems including fibromyalgia who presents with 2 to 3-day history of generalized weakness, dizziness, generalized malaise and some shortness of breath. She denies any fever chills or sweats. She has not had any nausea or vomiting. She denies any headache or lateralizing neurologic weakness. She denies chest pain. [] Review of Systems: Review of Systems: Constitutional: Denies fever or chills, reports general malaise. [] Eyes: Denies change in visual acuity. [] HENT: Denies nasal congestion or sore throat. [] Respiratory: Denies cough or shortness of breath. [] Cardiovascular: Denies chest pain or edema. [] GI: Denies abdominal pain, nausea, vomiting, bloody stools or diarrhea. [] : Denies dysuria. [] Musculoskeletal: Denies back pain or joint pain. [] Integument: Denies rash. [] Neurologic: Reports dizziness [] Endocrine: Denies polyuria or polydipsia. [] Lymphatic: Denies swollen glands. [] Psychiatric: Reports anxiety and depression. [] Heart Score: Risk Factors: Risk Factors: DM, Current or recent (<one month) smoker, HTN, HLP, family history of CAD, obesity. Risk Scores: Score 0 - 3: 2.5% MACE over next 6 weeks - Discharge Home Score 4 - 6: 20.3% MACE over next 6 weeks - Admit for Clinical Observation Score 7 - 10: 72.7% MACE over next 6 weeks - Early Invasive Strategies Allergies: Allergies: Allergies Coded Allergies Type Severity Reaction Last Updated Verified Penicillins Allergy Intermediate "SKIN PEELS OFF HANDS AND FEET" 11/21/15 Yes Sulfa (Sulfonamide Antibiotics) Allergy Intermediate BLISTERS 11/21/15 Yes Physical Exam: PE: Constitutional: Well developed, well nourished, no acute distress, non-toxic appearance. [] HENT: Normocephalic, atraumatic, bilateral external ears normal, oropharynx moist, no oral exudates, nose normal. [] Eyes: PERRLA, EOMI, conjunctiva normal, no discharge. [] Neck: Normal range of motion, no tenderness, supple, no stridor. [] Cardiovascular:Heart rate regular rhythm, no murmur [] Lungs & Thorax: Bilateral breath sounds clear to auscultation [] Abdomen: Bowel sounds normal, soft, no tenderness, no masses, no pulsatile masses. [] Skin: Warm, dry, no erythema, chronic venous stasis changes to bilateral lower extremities. [] Back: No tenderness, no CVA tenderness. [] Extremities: No tenderness, no cyanosis, no clubbing, ROM intact, no edema. [] Neurologic: Alert and oriented X 3, normal motor function, normal sensory function, no focal deficits noted. [] Psychologic: Depressed affect [] Current Patient Data: Labs: Laboratory Tests Test 12/11/19 16:39 White Blood Count 11.3 x10^3/uL (4.0-11.0) H Red Blood Count 4.27 x10^6/uL (3.50-5.40) Hemoglobin 14.1 g/dL (12.0-15.5) Hematocrit 40.2 % (36.0-47.0) Mean Corpuscular Volume 94 fL (79-100) Mean Corpuscular Hemoglobin 33 pg (25-35) Mean Corpuscular Hemoglobin Concent 35 g/dL (31-37) Red Cell Distribution Width 13.4 % (11.5-14.5) Platelet Count 260 x10^3/uL (140-400) Neutrophils (%) (Auto) 76 % (31-73) H Lymphocytes (%) (Auto) 13 % (24-48) L Monocytes (%) (Auto) 9 % (0-9) Eosinophils (%) (Auto) 1 % (0-3) Basophils (%) (Auto) 1 % (0-3) Neutrophils # (Auto) 8.6 x10^3/uL (1.8-7.7) H Lymphocytes # (Auto) 1.5 x10^3/uL (1.0-4.8) Monocytes # (Auto) 1.0 x10^3/uL (0.0-1.1) Eosinophils # (Auto) 0.2 x10^3/uL (0.0-0.7) Basophils # (Auto) 0.1 x10^3/uL (0.0-0.2) Sodium Level 137 mmol/L (136-145) Potassium Level 4.8 mmol/L (3.5-5.1) Chloride Level 99 mmol/L (98-107) Carbon Dioxide Level 29 mmol/L (21-32) Anion Gap 9 (6-14) Blood Urea Nitrogen 23 mg/dL (7-20) H Creatinine 1.8 mg/dL (0.6-1.0) H Estimated GFR (Cockcroft-Gault) 28.7 BUN/Creatinine Ratio 13 (6-20) Glucose Level 106 mg/dL (70-99) H Calcium Level 8.9 mg/dL (8.5-10.1) Total Bilirubin 0.4 mg/dL (0.2-1.0) Aspartate Amino Transferase (AST) 24 U/L (15-37) Alanine Aminotransferase (ALT) 27 U/L (14-59) Alkaline Phosphatase 75 U/L (46-116) Troponin I Quantitative < 0.017 ng/mL (0.000-0.055) EO-Zgs-F-Type Natriuretic Peptide 770 pg/mL (0-124) H Total Protein 7.6 g/dL (6.4-8.2) Albumin 3.8 g/dL (3.4-5.0) Albumin/Globulin Ratio 1.0 (1.0-1.7) Laboratory Tests 12/11/19 16:39 Laboratory Tests 12/11/19 16:39 Vital Signs: Vital Signs Date Time Temp Pulse Resp B/P (MAP) Pulse Ox O2 Delivery O2 Flow Rate FiO2 12/11/19 16:06 98.1 72 18 100/58 (72) 99 Nasal Cannula 3.0 98.1 EKG: EKG: [EKG: Normal sinus rhythm rate of [address]-T changes] Radiology/Procedures: Radiology/Procedures: []REASON: dizziness PROCEDURE: CT HEAD WO CONTRAST EXAM: CT Head without IV contrast CLINICAL HISTORY: dizziness COMPARISON: None. TECHNIQUE: Routine CT of the head without contrast. Soft tissues and bone windows were reviewed. PQRS compliance statement - One or more of the following individualized dose reduction techniques were utilized for this study: 1. Automated exposure control 2. Adjustment of the mA and/or kV according to patient size 3. Use of iterative reconstruction technique FINDINGS: There is no evidence of hemorrhage, mass or extra-axial fluid collection. Riggins-white differentiation is maintained with no evidence of edema. There is no mass effect or shift of the intracranial structures. The ventricles, basilar cisterns and cortical sulci are normal in size and configuration for the patients stated age. The cerebellum and brainstem are unremarkable. The calvarium demonstrates no evidence of fracture or focal lesion. There is normal aeration of the visualized paranasal sinuses and mastoid air cells. The visualized portions of the orbits are normal. IMPRESSION: No evidence for acute intracranial process. Impression: STATUS: REG ER ORD. PHYSICIAN: ADAMS DANIEL DO REASON: soa PROCEDURE: CHEST AP ONLY AP chest. HISTORY: Short of air AP view was taken of the chest. Lungs are free of infiltrates. Heart is normal in size. There is no pleural effusion. IMPRESSION: 1. No acute chest disease. Course & Med Decision Making: Course & Med Decision Making Pertinent Labs and Imaging studies reviewed. (See chart for details) [] ED course: Evaluation reveals a 59-year-old female presents with general malaise and some dizziness. Her evaluation here does not show anything acute going on at this time. I feel like she can go home and follow-up with her primary care physician. Jolene Disclaimer: Jolene Disclaimer: This electronic medical record was generated, in whole or in part, using a voice recognition dictation system. Departure Departure Impression: Primary Impression: Generalized weakness Disposition: 01 HOME, SELF-CARE Condition: STABLE Referrals: KAYE WORLEY MD (PCP) Patient Instructions: Weakness Additional Instructions: Follow with your primary care physician this week for recheck. Return to the emergency department with any new or concerning symptoms Justicifation of Admission Dx: Justifications for Admission: Justification of Admission Dx: No Respiratory Failure: Severe Resp Distress ADAMS DANIEL DO Dec 11, 2019 17:46
[2019-12-11 17:52] VITALS: BP 131/66
--- NOTE | 2019-12-12 07:30 | EKG ---
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
== END 2019-12-11 18:00 | disposition home or self-care (01) ==
LOC: ER 15:51
DX: R53.1 Weakness (principal); R42 Dizziness and giddiness; R06.02 Shortness of breath; R53.81 Other malaise; I48.91 Unspecified atrial fibrillation; J44.9 Chronic obstructive pulmonary disease, unspecified; E78.00 Pure hypercholesterolemia, unspecified; I10 Essential (primary) hypertension; F17.200 Nicotine dependence, unspecified, uncomplicated; Z88.0 Allergy status to penicillin; Z88.2 Allergy status to sulfonamides
CPT/HCPCS: 36415; 70450; 71045; 80053; 83880; 84484; 85025; 93005; 99285-25

== ENCOUNTER → 2020-03-04 | Outpatient (CLI) | payer OTHER ==
--- NOTE | 2020-03-04 17:25 | RAD ---
EXAM: CT Chest without IV contrast INDICATION: Reason: adenopathy / Spl. Instructions: / History: TECHNIQUE: Multi-detector row CT images were acquired from the thoracic inlet through the upper abdomen without the use of IV contrast. Sagittal and coronal images were acquired from the transaxial data. All CT scans performed at this facility utilize dose optimization techniques as appropriate to the exam, including the following: Automated exposure control and adjustment of the mA and/or KV according to patient size (this includes techniques or standardized protocols for targeted exams where dose is indication/reason for exam). COMPARISON: CT angiogram chest 12/04/2019 with IV contrast. FINDINGS: The absence of IV contrast limits evaluation of soft tissue pathology. CARDIOVASCULAR: Unremarkable MEDIASTINUM & TETO: Interval decrease in size of mediastinal lymph nodes, notably in the aortopulmonary window lymph node that now measures 1.2 cm short axis diameter compared with 4.5 cm previously. LUNGS: Minimal paraseptal pattern emphysema lung apices bilaterally. No pulmonary infiltrate, nodule, or other focal abnormality. PLEURAL SPACE: No pleural effusions or pneumothorax. OSSEOUS & SOFT TISSUE: Unremarkable ABDOMEN: The visualized portions of the upper abdomen are unremarkable. IMPRESSION: Interval improvement in mediastinal and hilar adenopathy favors reactive adenopathy as the cause of enlarged lymph nodes on the prior examination. In addition, findings of mild pulmonary fluid overload have since resolved. No acute process is shown on this examination although early COPD changes are noted. Additional follow-up can be pursued as clinically indicated. Electronically signed by: Isaac Hui MD (03/04/2020 5:23 PM) [id number]
== END | disposition home or self-care (01) ==
LOC: CT 12:25
PROVIDERS: ATTEND Internal Medicine Critical Care Medicine
DX: J43.9 Emphysema, unspecified (principal); R59.9 Enlarged lymph nodes, unspecified
CPT/HCPCS: 71250

== ENCOUNTER → 2020-05-22 | Outpatient (CLI) | payer OTHER ==
[~2020-05-22] MED LIST changes: +GADOTERATE 7.5 MMOL/15ML VIAL. IVP ONE
--- NOTE | 2020-05-22 16:12 | KCIC ---
MRI left shoulder without and with contrast Contrast: 18 mL clariscan gadolinium intravenous contrast. HISTORY: Soft tissue mass left posterior shoulder. Pain. FINDINGS: This exam was tailored for soft tissue mass evaluation, and not to assess for internal derangement. There are 3 vitamin E markers along the skin of the posterior shoulder denoting the area of palpable mass. At the posterior shoulder there is no evidence of a bone or soft tissue mass involving the imaged soft tissues, rotator cuff, scapula, humeral head and neck and clavicle. There is mild probable subcutaneous fat of the posterior shoulder, raising the possibility of an unencapsulated lipomatosis although no discrete encapsulated lipoma is evident. Glenohumeral joint demonstrates osteoarthritis with bone spurring of the glenoid. There is acromioclavicular arthrosis with clavicle osteophyte and joint capsule thickening. There is limited visualization of the rotator cuff, biceps tendon and labrum. IMPRESSION: No mass of the posterior left shoulder at the region of interest evident. There is mild prominent subcutaneous fat at the posterior shoulder versus a region of unencapsulated lipomatosis. Electronically signed by: Sawyer Johnson MD (05/22/2020 4:10 PM) [facility]
== END ==
LOC: KCIC MRI 13:21
PROVIDERS: ATTEND Family Medicine
DX: M19.012 Primary osteoarthritis, left shoulder (principal); M25.712 Osteophyte, left shoulder; M79.89 Other specified soft tissue disorders
CPT/HCPCS: 73220; 82565; A9575

== ENCOUNTER 2020-11-16 17:42 | Emergency (ER) | payer OTHER ==
[~2020-11-16] VITALS: Ht 172.7 cm; Wt 82.3 kg
[~2020-11-16 17:42] MED LIST changes: -CLIN150C14 PO; +CLIN150C15 PO; -GADOTERATE 7.5 MMOL/15ML VIAL. IVP ONE; +ROSU5TAB12 PO
[2020-11-16] MEDS ORDERED: VANCOMYCIN 1.5 GM in IV NORMAL SALINE 500ML BAG 500 ML IV ONE (18:30)
[2020-11-16] MEDS: cefTRIAXone IV Push 1 GM VIAL. IVP ONE (18:50)
[2020-11-16] MEDS: VANCOMYCIN 2 GM in IV NORMAL SALINE 500ML BAG 500 ML IV ONE (18:50)
[2020-11-16] MEDS: ONDANSETRON PF 4 MG/2 ML VIAL. IVP ONE (18:51)
[2020-11-16] MEDS ORDERED: ONDA4TAB12 PO (19:53)
--- NOTE | 2020-11-16 19:54 | ED.ADGEN ---
Past Medical History Past Medical History: A-Fib, Anxiety, COPD, Fibromyalgia, High Cholesterol, Hypertension, Other Additional Past Medical Histor: pleurisy, and shingles Past Surgical History: No Surgical History Smoking Status: Current Every Day Smoker Alcohol Use: None Drug Use: None General Adult EDM: Chief Complaint: EYE PROBLEMS HPI: HPI: Patient is 60-year-old female who presents to the emergency room complaining of right eye swelling. She states that she saw her primary care doctor on when this originally started. He placed on doxycycline, however she was unable to tolerate this due to vomiting and called her doctor back. He then placed on clindamycin. She also has not been able to tolerate this and has been vomiting. The swelling in her eyes been getting worse. She does not have any pain with eye movement. When she is able to get her eye open she does not have any visual changes. She is not had any drainage from the eye. She has not been doing compresses. She does not wear contacts. Review of Systems: Review of Systems: Complete ROS is negative unless otherwise documented in HPI Current Medications: Current Medications Medications (Trade) Dose Ordered Sig/Alan Start Time Stop Time Status Last Admin Dose Admin Ceftriaxone Sodium (Rocephin) 2 gm 1X ONCE 11/16/20 19:00 11/16/20 19:01 DC 11/16/20 18:50 2 GM Ondansetron HCl (Zofran) 4 mg 1X ONCE 11/16/20 19:00 11/16/20 19:01 DC 11/16/20 18:51 4 MG Vancomycin HCl 1.5 gm/Sodium Chloride 500 ml @ 250 mls/hr 1X ONCE 11/16/20 18:30 11/16/20 18:32 DC Vancomycin HCl 2 gm/Sodium Chloride 500 ml @ 250 mls/hr 1X ONCE 11/16/20 19:00 11/16/20 20:59 11/16/20 18:50 250 MLS/HR Allergies: Allergies: Allergies Coded Allergies Type Severity Reaction Last Updated Verified Penicillins Allergy Intermediate "SKIN PEELS OFF HANDS AND FEET" 11/21/15 Yes Sulfa (Sulfonamide Antibiotics) Allergy Intermediate BLISTERS 11/21/15 Yes Physical Exam: PE: General: Awake, alert, NAD. Well Nourished, well hydrated. Cooperative HEENT: Atraumatic, EOMI, PERRL, airway patent, moist oral mucosa, right eye: Conjunctive appear normal, no drainage, no chemosis, swelling and erythema to upper and lower eyelid Neck: Supple, trachea midline Respiratory: CTA bilaterally, normal effort, no wheezing/crackles CV: RRR, no murmur, cap refill <2 GI: Soft, nondistended, nontender, no masses MSK: No obvious deformities Skin: Warm, dry, intact Neuro: A&O x3, speech NL, sensory and motor grossly intact, no focal deficits Psych: Normal affect, normal mood, not suicidal or homicidal seems kind of intent Current Patient Data: Vital Signs: Vital Signs Date Time Temp Pulse Resp B/P (MAP) Pulse Ox O2 Delivery O2 Flow Rate FiO2 11/16/20 17:42 98.0 88 16 129/72 (91) 94 Room Air 98.0 EKG: EKG: [] Heart Score: C/O Chest Pain: N/A Risk Factors: Risk Factors: DM, Current or recent (<one month) smoker, HTN, HLP, family history of CAD, obesity. Risk Scores: Score 0 - 3: 2.5% MACE over next 6 weeks - Discharge Home Score 4 - 6: 20.3% MACE over next 6 weeks - Admit for Clinical Observation Score 7 - 10: 72.7% MACE over next 6 weeks - Early Invasive Strategies Radiology/Procedures: Radiology/Procedures: [] Course & Med Decision Making: Course & Med Decision Making Pertinent Labs and Imaging studies reviewed. (See chart for details) Patient is a 60-year-old female who presents to the emergency room complaining of right eye swelling and cellulitis. She has not been able to take her antibiotics due to medication side effects. Patient was given a dose of IV antibiotics for preseptal cellulitis. She does not have any pain with eye movement, proptosis, visual changes, ecchymosis, or any other signs of orbital cellulitis. She was given Zofran and then we attempted clindamycin pills to see if patient is able to tolerate this with nausea medicine at home. Patient had no issues will write her prescription for Zofran. Patient's test results and vitals while in the ED were fully reviewed and discussed with the patient. Patient is stable and at this time does not need admission to the hospital. We have discussed strict return precautions and the importance of following up with their Primary Care Physician. Patient stated understanding and was given an opportunity to ask any questions. Patient is in agreement with plan. Jolene Disclaimer: Jolene Disclaimer: This electronic medical record was generated, in whole or in part, using a voice recognition dictation system. Departure Departure Impression: Primary Impression: Preseptal cellulitis Disposition: HOME / SELF CARE / HOMELESS Condition: STABLE Referrals: KAYE WORLEY MD (PCP) Patient Instructions: Periorbital Cellulitis Scripts Ondansetron (ONDANSETRON ODT) 4 Mg Tab.rapdis 1 TAB PO PRN Q6-8HRS, #16 TAB Prov: TARI ROD MD 11/16/20 TARI ROD MD November 16, 2020 19:54
[2020-11-16 21:12] VITALS: BP 122/58
== END 2020-11-16 21:28 | disposition home or self-care (01) ==
LOC: ER 17:42
DX: L03.213 Periorbital cellulitis (principal); J44.9 Chronic obstructive pulmonary disease, unspecified; I48.91 Unspecified atrial fibrillation; E78.00 Pure hypercholesterolemia, unspecified; I10 Essential (primary) hypertension; F17.200 Nicotine dependence, unspecified, uncomplicated; Z88.0 Allergy status to penicillin; Z88.2 Allergy status to sulfonamides
CPT/HCPCS: 96365; 96375; 96376; 99285; J0696; J2405; J3370; J7040

== ENCOUNTER 2021-07-17 13:07 | Inpatient (IN) | payer MEDICAID, OTHER ==
[~2021-07-17] VITALS: Ht 172.7 cm; Wt 77.0 kg
[~2021-07-17 13:07] MED LIST changes: -CLIN150C15 PO; +CLIN150C16 PO; -DOXY100C2 PO; +DOXY100C3 PO; -DULO60CA6 PO; +DULO60CA7 PO; +ONDA4TAB12 PO
[2021-07-17] MEDS ORDERED: methylPREDNISolone SOD SUCC PF 125 MG/2 ML VIAL. IV ONE (13:45)
[2021-07-17] MEDS ORDERED: IPRATRPIUM/ALBUTEROL 0.5/2.5MG 3 ML NEBU. NEB ONE (13:45)
--- NOTE | 2021-07-17 13:56 | RAD ---
EXAM: Chest, single view. HISTORY: Shortness of air. COMPARISON: 09/07/2020 FINDINGS: A frontal view of the chest is obtained. There is right greater than left lower lobe infilt rate with a trace right pleural effusion. There is a prominent cardiac silhouette. There is no pneumo thorax. IMPRESSION: Right greater than left lower lobe infiltrate with trace right pleural effusion. Electronically signed by: Rashmi Rob MD (07/17/2021 1:54 PM) [id number]
--- NOTE | 2021-07-17 14:08 | PHYS DOC ---
Past Medical History Past Medical History: A-Fib, Anxiety, COPD, Fibromyalgia, High Cholesterol, Hypertension, Other Additional Past Medical Histor: pleurisy, and shingles (STEPH COREAS SERVICE TEAM LEADER) Past Surgical History: Other Additional Past Surgical Histo: RECENT ABLATION (STEPH COREAS SERVICE TEAM LEADER) Smoking Status: Former Smoker Alcohol Use: None Drug Use: None (STEPH COREAS SERVICE TEAM LEADER) General Adult EDM: Chief Complaint: SHORTNESS OF BREATH HPI: HPI: Patient is a 60 year old female who presents with the last few days she states she has been struggling to breathe and her nebulizer is not helping because she cannot take a deep enough breath to get it in. She does have a productive cough. She states that she just got off of his steroid taper on Wednesday. She states about 2 weeks ago she tested positive for Covid. She normally wears 3 L of oxygen. Patient states that she just had her oxygen tank serviced but it stopped working and she did not know this. She states that she took a nap and woke up gasping for air. Patient is a former smoker, COPD, A. fib, anxiety, pleurisy, ablation, high cholesterol, fibromyalgia, hypertension. Denies pain at this time. Patient denies nausea, vomiting, diarrhea, fever but does states she has chills, syncope, dizziness, headache, new numbness or tingling, focal weakness, vision change. (STEPH COREAS SERVICE TEAM LEADER) Review of Systems: Review of Systems: Constitutional: Denies fever or +chills. [] Eyes: Denies change in visual acuity. [] HENT: Denies nasal congestion or sore throat. [] Respiratory: + cough or +shortness of breath. [] Cardiovascular: Denies chest pain or edema. [] GI: Denies abdominal pain, nausea, vomiting, bloody stools or diarrhea. [] : Denies dysuria. [] Musculoskeletal: Denies back pain or joint pain. [] Integument: Denies rash. [] Neurologic: Denies headache, focal weakness or sensory changes. [] Endocrine: Denies polyuria or polydipsia. [] Lymphatic: Denies swollen glands. [] Psychiatric: Denies depression or anxiety. [] (STEPH COREAS SERVICE TEAM LEADER) Heart Score: C/O Chest Pain: No Risk Factors: Risk Factors: DM, Current or recent (<one month) smoker, HTN, HLP, family history of CAD, obesity. Risk Scores: Score 0 - 3: 2.5% MACE over next 6 weeks - Discharge Home Score 4 - 6: 20.3% MACE over next 6 weeks - Admit for Clinical Observation Score 7 - 10: 72.7% MACE over next 6 weeks - Early Invasive Strategies (STEPH COREAS APRN) Current Medications: Current Medications Medications (Trade) Dose Ordered Sig/Alan Start Time Stop Time Status Last Admin Dose Admin Albuterol/ Ipratropium (Duoneb) 6 ml 1X ONCE 07/17/21 13:45 07/17/21 13:46 DC Methylprednisolone Sodium Succinate (SOLU-Medrol 125MG VIAL) 125 mg 1X ONCE 07/17/21 13:45 07/17/21 13:46 DC (STEPH COREAS APRN) Allergies: Allergies: Allergies Coded Allergies Type Severity Reaction Last Updated Verified Penicillins Allergy Intermediate "SKIN PEELS OFF HANDS AND FEET" 11/21/15 Yes Sulfa (Sulfonamide Antibiotics) Allergy Intermediate BLISTERS 11/21/15 Yes (STEPH COREAS APRN) Physical Exam: PE: Constitutional: Well developed, well nourished, no acute distress, non-toxic appearance. [] HENT: Normocephalic, atraumatic, bilateral external ears normal, oropharynx moist, no oral exudates, nose normal. [] Eyes: PERRLA, EOMI, conjunctiva normal, no discharge. [] Neck: Normal range of motion, no tenderness, supple, no stridor. [] Cardiovascular:Heart rate regular rhythm, no murmur [] Lungs & Thorax: Bilateral upper and lower breath sounds diminished to auscultation [] Abdomen: Bowel sounds normal, soft, no tenderness, no masses, no pulsatile masses. [] Skin: Warm, dry, no erythema, no rash. [] Back: No tenderness, no CVA tenderness. [] Extremities: No tenderness, no cyanosis, no clubbing, ROM intact, no edema. [] Neurologic: Alert and oriented X 3, normal motor function, normal sensory function, no focal deficits noted. [] Psychologic: Affect normal, judgement normal, mood normal. [] (STEPH COREAS APRN) EKG: EK and read by Dr. Trent as sinus rhythm with some prolonged QT but no STEMI (STEPH COREAS APRN) Radiology/Procedures: Radiology/Procedures: [] Impression: [facility] [address] [place] [address] IMAGING REPORT Signed PATIENT: SILVIA JOHN ACCOUNT: [id number] : 1960 LOCATION: ER AGE: 60 SEX: F EXAM STATUS: PRE ER ORD. PHYSICIAN: STEPH COREAS APRN REASON: SOA PROCEDURE: PORTABLE CHEST 1V EXAM: Chest, single view. HISTORY: Shortness of air. COMPARISON: 09/07/2020 FINDINGS: A frontal view of the chest is obtained. There is right greater than left lower lobe infiltrate with a trace right pleural effusion. There is a prominent cardiac silhouette. There is no pneumothorax. IMPRESSION: Right greater than left lower lobe infiltrate with trace right pleural effusion. Electronically signed by: Rashmi Mendoza MD (07/17/2021 1:54 PM) [id number] DICTATED and SIGNED BY: RASHMI MENDOZA MD DATE: 07/17/21 [id number] (STEPH COREAS APRN) Course & Med Decision Making: Course & Med Decision Making Pertinent Labs and Imaging studies reviewed. (See chart for details) COVID-19 CRITERIA: The patient was evaluated during the global COVID-19 pandemic, and that diagnosis was suspected/considered upon their initial presentation. Their evaluation, treatment and testing was consistent with current guidelines for patients who present with complaints or symptoms that may be related to COVID-19. See HPI. Alert and oriented x4. Speaks in full clear sentences. She is 93% on 3 L which is her normal. Lungs are very diminished throughout. She states her chest is still very tight. Currently afebrile. Skin pink warm and dry. Cap refill less than 2 seconds. Abdomen soft and nontender. Patient looks to have some CHF exacerbation, COPD exacerbation, pneumonia due to Covid, sepsis. She was given azithromycin and Rocephin and 2 L of fluid. Patient admitted to hospitalist. ([facility],STEPH M SERVICE TEAM LEADER) Dragon Disclaimer: Dragon Disclaimer: This electronic medical record was generated, in whole or in part, using a voice recognition dictation system. ([facility] M SERVICE TEAM LEADER) COVID-19 Patient Risks: Age 65 or older: No Sign of co-morbidity: Yes Exp to person + for COVID: Yes Travel from affected area: No Lower respiratory symptoms: Yes Fever: No ([place]ILLS) Other: Yes ([facility],STEPH M SERVICE TEAM LEADER) PPE Use: Full PPE with N95 mask or PAPR: Yes ([facility] SERVICE TEAM LEADER) Date and Time of Assessment Date: Jul 17, 2021 Time: 14:47 ([facility],STEPH M SERVICE TEAM LEADER) Vital Signs Temperature Source: Oral ([facility],STEPH M SERVICE TEAM LEADER) Respirations Respiratory Effort: Non-Labored Respiratory Pattern: Normal ([facility],STEPH M SERVICE TEAM LEADER) Cardiovascular Pulse Rhythm: Regular Heart: Nml S1, S2, no murmurs ([facility],STEPH M SERVICE TEAM LEADER) Lung Sounds Breath Sounds: Diminished ([facility],STEPH M SERVICE TEAM LEADER) Capillary Refil Capillary Refill: Rt Hand < 3 seconds ([facility] SERVICE TEAM LEADER) Peripheral Pulse Pulse Location: Radial Pulse Strength: Normal (2+) Pulse Assessment Method: Cuff (manual) ([facility],STEPH M SERVICE TEAM LEADER) Integumentary Skin: Warm Skin Moisture: Dry Skin Turgor: Normal Skin Color: warm Fingernail Color: WNL ([facility],STEPH M SERVICE TEAM LEADER) Departure Departure Impression: Primary Impression: Pneumonia Qualified Codes: J18.9 - Pneumonia, unspecified organism Additional Impressions: CHF exacerbation Qualified Codes: I50.9 - Heart failure, unspecified Sepsis Qualified Codes: A41.9 - Sepsis, unspecified organism; R65.20 - Severe sepsis without septic shock Person under investigation for COVID-19 Disposition: ADMITTED INPATIENT Admitting Physician: MALIA ([facility],STEPH M SERVICE TEAM LEADER) Condition: STABLE Referrals: KAYE WORLEY MD (PCP) Attending Signature Attending Signature I have reviewed the PA/PROTECTION MANAGER's note and plan of care. I was available for consultation as needed during the patient's visit in the emergency department. I agree with the clinical impression, plan, and disposition. (THOMAS TRENT DO) STEPH COREAS APRN Jul 17, 2021 14:08 THOMAS TRENT DO Jul 18, 2021 07:21
[2021-07-17 14:09] LABS: BASO % 0 % (0-3); EOS # 0.2 x10^3/uL (0.0-0.7); EOS % 1 % (0-3); HEMATOCRIT 32.3 % (36.0-47.0); HEMOGLOBIN 10.5 g/dL (12.0-15.5); LYMPH # 0.6 x10^3/uL (1.0-4.8); LYMPH % 5 % (24-48); MEAN CORPUSCULAR HEMOGLOBIN 31 pg (25-35); MEAN CORPUSCULAR HGB CONC 33 g/dL (31-37); MEAN CORPUSCULAR VOLUME 96 fL (79-100); MONO # 0.4 x10^3/uL (0.0-1.1); MONO % 4 % (0-9); NEUT # 9.9 x10^3/uL (1.8-7.7); NEUT % 89 % (31-73); PLATELET COUNT 314 x10^3/uL (140-400); RED BLOOD COUNT 3.38 x10^6/uL (3.50-5.40); RED CELL DISTRIBUTION WIDTH 14.5 % (11.5-14.5); WHITE BLOOD COUNT 11.1 x10^3/uL (4.0-11.0)
[2021-07-17] MEDS ORDERED: cefTRIAXone IV Push 1 GM VIAL. IVP ONE (14:15)
[2021-07-17 14:33] LABS: CALCIUM 8.4 mg/dL (8.5-10.1); CREATININE 0.7 mg/dL (0.6-1.0); GFR 85.1; POTASSIUM 3.6 mmol/L (3.5-5.1)
[2021-07-17 14:39] LABS: ALBUMIN/GLOBULIN RATIO 0.7 (1.0-1.7); TOTAL BILIRUBIN 0.3 mg/dL (0.2-1.0); TOTAL PROTEIN 7.1 g/dL (6.4-8.2)
[2021-07-17] MEDS ORDERED: IV NORMAL SALINE 1000ML BAG 1,000 ML IV ONE (14:45)
[2021-07-17 14:59] LABS: BASE EXCESS COOX 9 mmol/L (-3-3); HCO3 COOX 35 mmol/L (21-28); METHEMOGLOBIN 0.4 % (0.0-1.9); OXYHEMOGLOBIN 95.1 %; PCO2 COOX 58 mmHg (35-46); PO2 COOX 85 mmHg (65-108); SAT O2 COOX 96 % (92-99)
[2021-07-17] MEDS ORDERED: AZITHROMYCIN 500 MG in IV NORMAL SALINE 250ML 250 ML IV ONE (15:00)
--- NOTE | 2021-07-17 15:01 | EKG ---
[facility] [address] [place] [address] Test Date: 2021-07-17 Test Time: 14:42:32 Pat Name: SILVIA JOHN Department: Room: Gender: F Sales Administration Specialist: : 1960 Requested By: STEPH COREAS Order Number: [id number] Reading MD: Krishna Mcclendon Measurements Intervals [place] Rate: 82 P: 6 SD: 170 QRS: 5 QRSD: 74 T: 99 QT: 402 QTc: 473 Interpretive Statements SINUS RHYTHM LOW LIMB LEAD VOLTAGE QRS(T) CONTOUR ABNORMALITY CONSIDER ANTEROSEPTAL MYOCARDIAL DAMAGE T ABNORMALITY IN HIGH LATERAL LEADS PROLONGED QT Electronically Signed On 07-18-2021 12:55:58 POWER BALLAST MACHINE OPERATOR by Krishna Mcclendon
[2021-07-17] MEDS ORDERED: CALCIUM CARBONATE 500 MG TAB.CHEW PO PRN (15:30)
[2021-07-17] MEDS ORDERED: ZOLPIDEM 5 MG TABLET. PO PRN (15:30)
[2021-07-17] MEDS ORDERED: ONDANSETRON PF 4 MG/2 ML VIAL. IVP PRN (15:30)
[2021-07-17] MEDS ORDERED: ACETAMINOPHEN 325 MG TABLET. PO PRN (15:30)
[2021-07-17] MEDS ORDERED: ELECTROLYTE (NON-ICU) PROTOCOL. MC PRN (15:30)
[2021-07-17] MEDS: PANTOPRAZOLE 40 MG TABLET.DR. PO SCH (16:30)
[2021-07-17] MEDS: cefTRIAXone IV Push 1 GM VIAL. IVP SCH (17:06)
[2021-07-17 17:14] LABS: BILIRUBIN,URINE NEGATIVE (NEG); CLARITY,URINE CLEAR; COLOR,URINE YELLOW; NITRITE,URINE NEGATIVE (NEG); PH,URINE 6.5 (<5.0-8.0); PROTEIN,URINE 100 mg/dL (NEG-TRACE); UROBILINOGEN,URINE 0.2 mg/dL (0.2 mg/dL)
[2021-07-17 17:25] LABS: HYALINE CASTS, URINE OCCASIONAL /HPF
[2021-07-17 17:29] LABS: BACTERIA,URINE FEW /HPF (0-FEW)
[2021-07-17] MEDS: ALBUTEROL SULFATE 2.5 MG/3 ML NEBU. NEB SCH (18:00)
--- NOTE | 2021-07-17 18:13 | PDOC1 ---
History and Physical Date of Service: DOS: DATE: 07/17/21 TIME: 18:07 Chief Complaint: Chief Complain: SOB History of Present Illness: HPI: Patient is 60-year-old female presented emergency room today due to shortness of breath not resolved by her home nebulizer. Patient says she is having difficulty taking a deep breath. Was diagnosed for Covid about 2 weeks ago. Just completed a steroid taper has been on antibiotics as well. Despite this not improving. Normally wears 3 L oxygen at home and apparently this ran out ca using her shortness of breath to be much worse. Does have a productive cough. Past Medical/Surgical History: PMH/PSH: Past Medical History: A-Fib, Anxiety, COPD, Fibromyalgia, High Cholesterol, Hypertension Additional Past Medical Histor: pleurisy, and shingles Additional Past Surgical Histo: RECENT ABLATION Smoking Status: Former Smoker Alcohol Use: None Drug Use: None Allergies: Allergies: Coded Allergies: Penicillins (Verified Allergy, Intermediate, "SKIN PEELS OFF HANDS AND FEET", 11/21/15) Sulfa (Sulfonamide Antibiotics) (Verified Allergy, Intermediate, BLISTERS, 11/21/15) Family History: Family History: Hypertension Current Medications: Current Medications Current Medications Albuterol/ Ipratropium (Duoneb) 6 ml 1X ONCE NEB Last administered on 07/17/21at 14:50; Start 07/17/21 at 13:45; Stop 07/17/21 at 13:46; Status DC Methylprednisolone Sodium Succinate (SOLU-Medrol 125MG VIAL) 125 mg 1X ONCE IV Last administered on 07/17/21at 13:58; Start 07/17/21 at 13:45; Stop 07/17/21 at 13:46; Status DC Azithromycin 500 mg/Sodium Chloride 250 ml @ 250 mls/hr 1X ONCE IV Last administered on 07/17/21at 15:33; Start 07/17/21 at 15:00; Stop 07/17/21 at 15:59; Status DC Ceftriaxone Sodium (Rocephin) 1 gm 1X ONCE IVP Last administered on 07/17/21at 15:33; Start 07/17/21 at 14:15; Stop 07/17/21 at 14:16; Status DC Sodium Chloride 1,000 ml @ 1,000 mls/hr 1X ONCE IV Last administered on 07/17/21at 15:32; Start 07/17/21 at 14:45; Stop 07/17/21 at 15:44; Status DC Ceftriaxone Sodium (Rocephin) 1 gm Q24H IVP ; Start 07/17/21 at 16:00 Doxycycline Hyclate (Vibra-Tab) 100 mg BID PO ; Start 07/17/21 at 21:00 Alprazolam (Xanax) 0.5 mg QHS PO ; Start 07/17/21 at 21:00 Aspirin (Aspirin Chewable) 81 mg DAILY PO ; Start 07/18/21 at 09:00 Benzonatate (Tessalon Perle) 100 mg BID PO ; Start 07/17/21 at 21:00 Diltiazem HCl (Cardizem 24hr Cd) 120 mg DAILY PO ; Start 07/18/21 at 09:00 Fluticasone Propionate (Flonase) 1 spray DAILY NS ; Start 07/18/21 at 09:00 Furosemide (Lasix) 20 mg DAILY PO ; Start 07/18/21 at 09:00 Gabapentin (Neurontin) 300 mg BID PO ; Start 07/17/21 at 21:00 Losartan Potassium (Cozaar) 50 mg DAILY PO ; Start 07/18/21 at 09:00 Montelukast Sodium (Singulair) 10 mg HS PO ; Start 07/17/21 at 21:00 Non-Formulary Medication (Budesonide/ Formoterol Fumarate (Symbicort 160-4.5 Mcg Inhaler)) 2 puff BID IH ; Start 07/17/21 at 21:00; Status UNV Duloxetine HCl (Cymbalta) 60 mg DAILY PO ; Start 07/18/21 at 09:00 Pantoprazole Sodium (Protonix) 40 mg DAILYAC PO ; Start 07/17/21 at 16:30 Methylprednisolone Sodium Succinate (SOLU-Medrol 40MG VIAL) 40 mg Q8HRS IV ; Start 07/17/21 at 22:00 Ondansetron HCl (Zofran) 4 mg PRN Q6HRS PRN IVP NAUSEA/VOMITING; Start 07/17/21 at 15:30 Calcium Carbonate/ Glycine (Tums) 500 mg PRN Q3HRS PRN PO UPSET STOMACH; Start 07/17/21 at 15:30 Zolpidem Tartrate (Ambien) 5 mg PRN QHS PRN PO INSOMNIA, MAY REPEAT IN 1HR; Start 07/17/21 at 15:30 Info (Non-Icu Electrolyte Protocol) 1 ea PRN DAILY PRN MC SEE COMMENTS; Start 07/17/21 at 15:30 Acetaminophen (Tylenol) 650 mg PRN Q6HRS PRN PO Headaches, Temp > 101.5F; Start 07/17/21 at 15:30 Senna/Docusate Sodium (Senna Plus) 1 tab BID PO ; Start 07/17/21 at 21:00 Heparin Sodium (Porcine) (Heparin Sodium) 5,000 unit Q8HRS SQ ; Start 07/17/21 at 16:00 Albuterol Sulfate (Ventolin Neb Soln) 2.5 mg Q6HRS NEB ; Start 07/17/21 at 18:00 Budesonide (Pulmicort) 0.5 mg RTBID NEB ; Start 07/17/21 at 20:00 Active Scripts Active Ondansetron Odt (Ondansetron) 4 Mg Tab.rapdis 1 Tab PO PRN Q6-8HRS Furosemide 20 Mg Tablet 20 Mg PO DAILY MDD 1 Diltiazem 24HR Cd (Diltiazem Hcl) 120 Mg Cap.er.24h 120 Mg PO DAILY MDD 1 Reported Rosuvastatin Calcium 5 Mg Tablet Unknown Dose PO UNKNOWN Fluticasone Propionate Nasal [place] (Fluticasone Propionate) 16 Gm [place].susp 16 Gm NS DAILY Gabapentin 300 Mg Capsule 300 Mg PO BID Hydroxyzine Pamoate 50 Mg Capsule 25 Mg PO PRN BID PRN Losartan Potassium 50 Mg Tablet 50 Mg PO DAILY Symbicort 160-4.5 Mcg Inhaler (Budesonide/Formoterol Fumarate) 10.2 Gm Hfa.aer.ad 2 Puff IH BID Cymbalta (Duloxetine Hcl) 60 Mg Capsule.dr 1 Cap PO DAILY Alprazolam 0.5 Mg Tablet 1 Tab PO QHS Montelukast Sodium Tablet (Montelukast Sodium) 10 Mg Tablet 10 Mg PO HS Meloxicam 15 Mg Tablet 15 Mg PO DAILY Omeprazole 20 Mg Capsule.dr 1 Cap PO DAILY Aspirin 81 Mg Tab.chew 1 Tab PO DAILY Benzonatate 100 Mg Capsule 1 Cap PO BID Albuterol Sulfate Hfa Inhaler (Albuterol Sulfate) 8.5 Gm Hfa.aer.ad 8.5 Gm IH QID Oxycodone-Acetaminophen 5-325 (Oxycodone Hcl/Acetaminophen) 1 Each Tablet 1 Each PO PRN Q6HRS PRN Duoneb 0.5 Mg-3 Mg/3 Ml Soln (Ipratropium/Albuterol Sulfate) 3 Ml Ampul.neb 3 Ml IH ROS: Review of Systems Review of System Unless noted in HPI 14 point review of systems was negative Physical Exam: Vital Signs: Vital Signs Date Time Temp Pulse Resp B/P (MAP) Pulse Ox O2 Delivery O2 Flow Rate FiO2 07/17/21 15:12 97 Nasal Cannula 3.0 07/17/21 13:17 98.9 98 16 150/79 (102) 98.9 Physcial Exam: GEN: No apparent distress. Alert and oriented HEENT: Normal cephalic, atraumatic, external auditory canals are patent EYES: Extraocular muscles are intact, pupil are equally round and reactive to light and accommodation MUSCULOSKELETAL: Well developed , well nourished, good range of motion ENDOCRINE: No thyromegaly was palpated LYMPHATICS: No cervical chain or axillary nodes were noted HEMATOPOIETIC: No bruising NECK: Supple, no JVD, no thyromegaly was noted LUNGS: Coarse throughout HEART: RRR, S!, S2 present. Peripheral pulses intact, no obvious murmurs noted ABDOMEN: Soft, nontender. Positive bowel sounds, no organomegaly, normal bowel sounds EXTREMITIES: Without clubbing, cyanosis, or edema. Pedal pulses intact. Negative Homans sign NEUROLOGIC: Normal speech and tone. A&O x 3, moves all extremities, no obvious focal deficits PSYCHIATRIC: Normal affect, normal mood. Stable SKIN: No ulcerations or rashes, good skin turgor, no jaundice VASCULAR: Good capillary refill, neurovascular bundle appears to be intact Labs: Labs: Laboratory Tests Test 07/17/21 13:32 07/17/21 13:47 07/17/21 15:38 07/17/21 17:02 O2 Saturation 96 % (92-99) Arterial Blood pH 7.40 (7.35-7.45) Arterial Blood pCO2 at Patient Temp 58 mmHg (35-46) Arterial Blood pO2 at Patient Temp 85 mmHg (65-108) Arterial Blood HCO3 35 mmol/L (21-28) Arterial Blood Base Excess 9 mmol/L (-3-3) Oxyhemoglobin 95.1 % Methemoglobin 0.4 % (0.0-1.9) Carbon Monoxide, Quantitative 0.3 % (0.0-1.9) FiO2 3l n.c. White Blood Count 11.1 x10^3/uL (4.0-11.0) Red Blood Count 3.38 x10^6/uL (3.50-5.40) Hemoglobin 10.5 g/dL (12.0-15.5) Hematocrit 32.3 % (36.0-47.0) Mean Corpuscular Volume 96 fL (79-100) Mean Corpuscular Hemoglobin 31 pg (25-35) Mean Corpuscular Hemoglobin Concent 33 g/dL (31-37) Red Cell Distribution Width 14.5 % (11.5-14.5) Platelet Count 314 x10^3/uL (140-400) Neutrophils (%) (Auto) 89 % (31-73) Lymphocytes (%) (Auto) 5 % (24-48) Monocytes (%) (Auto) 4 % (0-9) Eosinophils (%) (Auto) 1 % (0-3) Basophils (%) (Auto) 0 % (0-3) Neutrophils # (Auto) 9.9 x10^3/uL (1.8-7.7) Lymphocytes # (Auto) 0.6 x10^3/uL (1.0-4.8) Monocytes # (Auto) 0.4 x10^3/uL (0.0-1.1) Eosinophils # (Auto) 0.2 x10^3/uL (0.0-0.7) Basophils # (Auto) 0.0 x10^3/uL (0.0-0.2) Sodium Level 140 mmol/L (136-145) Potassium Level 3.6 mmol/L (3.5-5.1) Chloride Level 101 mmol/L (98-107) Carbon Dioxide Level 33 mmol/L (21-32) Anion Gap 6 (6-14) Blood Urea Nitrogen 18 mg/dL (7-20) Creatinine 0.7 mg/dL (0.6-1.0) Estimated GFR (Cockcroft-Gault) 85.1 BUN/Creatinine Ratio 26 (6-20) Glucose Level 115 mg/dL (70-99) Lactic Acid Level 2.5 mmol/L (0.4-2.0) Calcium Level 8.4 mg/dL (8.5-10.1) Total Bilirubin 0.3 mg/dL (0.2-1.0) Aspartate Amino Transf (AST/SGOT) 46 U/L (15-37) Alanine Aminotransferase (ALT/SGPT) 48 U/L (14-59) Alkaline Phosphatase 124 U/L (46-116) Troponin I High Sensitivity 12 ng/L (4-50) BR-Ggu-G-Type Natriuretic Peptide 5793 pg/mL (0-124) Total Protein 7.1 g/dL (6.4-8.2) Albumin 3.0 g/dL (3.4-5.0) Albumin/Globulin Ratio 0.7 (1.0-1.7) SARS-CoV-2 Antigen (Rapid) Negative (NEGATIVE) Urine Color Yellow Urine Clarity Clear Urine pH 6.5 (<5.0-8.0) Urine Specific [place] 1.015 (1.000-1.030) Urine Protein 100 mg/dL (NEG-TRACE) Urine Glucose (UA) Negative mg/dL (NEG) Urine Ketones (Stick) Trace mg/dL (NEG) Urine Blood Negative (NEG) Urine Nitrite Negative (NEG) Urine Bilirubin Negative (NEG) Urine Urobilinogen Dipstick 0.2 mg/dL (0.2 mg/dL) Urine Leukocyte Esterase Negative (NEG) Urine RBC 1-2 /HPF (0-2) Urine WBC 1-4 /HPF (0-4) Urine Squamous Epithelial Cells Many /LPF Urine Bacteria Few /HPF (0-FEW) Urine Hyaline Casts Occasional /HPF Urine Mucus Marked /LPF Laboratory Tests Test 07/17/21 13:32 07/17/21 13:47 07/17/21 15:38 07/17/21 17:02 O2 Saturation 96 % (92-99) Arterial Blood pH 7.40 (7.35-7.45) Arterial Blood pCO2 at Patient Temp 58 mmHg (35-46) Arterial Blood pO2 at Patient Temp 85 mmHg (65-108) Arterial Blood HCO3 35 mmol/L (21-28) Arterial Blood Base Excess 9 mmol/L (-3-3) Oxyhemoglobin 95.1 % Methemoglobin 0.4 % (0.0-1.9) Carbon Monoxide, Quantitative 0.3 % (0.0-1.9) FiO2 3l n.c. White Blood Count 11.1 x10^3/uL (4.0-11.0) Red Blood Count 3.38 x10^6/uL (3.50-5.40) Hemoglobin 10.5 g/dL (12.0-15.5) Hematocrit 32.3 % (36.0-47.0) Mean Corpuscular Volume 96 fL (79-100) Mean Corpuscular Hemoglobin 31 pg (25-35) Mean Corpuscular Hemoglobin Concent 33 g/dL (31-37) Red Cell Distribution Width 14.5 % (11.5-14.5) Platelet Count 314 x10^3/uL (140-400) Neutrophils (%) (Auto) 89 % (31-73) Lymphocytes (%) (Auto) 5 % (24-48) Monocytes (%) (Auto) 4 % (0-9) Eosinophils (%) (Auto) 1 % (0-3) Basophils (%) (Auto) 0 % (0-3) Neutrophils # (Auto) 9.9 x10^3/uL (1.8-7.7) Lymphocytes # (Auto) 0.6 x10^3/uL (1.0-4.8) Monocytes # (Auto) 0.4 x10^3/uL (0.0-1.1) Eosinophils # (Auto) 0.2 x10^3/uL (0.0-0.7) Basophils # (Auto) 0.0 x10^3/uL (0.0-0.2) Sodium Level 140 mmol/L (136-145) Potassium Level 3.6 mmol/L (3.5-5.1) Chloride Level 101 mmol/L (98-107) Carbon Dioxide Level 33 mmol/L (21-32) Anion Gap 6 (6-14) Blood Urea Nitrogen 18 mg/dL (7-20) Creatinine 0.7 mg/dL (0.6-1.0) Estimated GFR (Cockcroft-Gault) 85.1 BUN/Creatinine Ratio 26 (6-20) Glucose Level 115 mg/dL (70-99) Lactic Acid Level 2.5 mmol/L (0.4-2.0) Calcium Level 8.4 mg/dL (8.5-10.1) Total Bilirubin 0.3 mg/dL (0.2-1.0) Aspartate Amino Transf (AST/SGOT) 46 U/L (15-37) Alanine Aminotransferase (ALT/SGPT) 48 U/L (14-59) Alkaline Phosphatase 124 U/L (46-116) Troponin I High Sensitivity 12 ng/L (4-50) WR-Pft-B-Type Natriuretic Peptide 5793 pg/mL (0-124) Total Protein 7.1 g/dL (6.4-8.2) Albumin 3.0 g/dL (3.4-5.0) Albumin/Globulin Ratio 0.7 (1.0-1.7) SARS-CoV-2 Antigen (Rapid) Negative (NEGATIVE) Urine Color Yellow Urine Clarity Clear Urine pH 6.5 (<5.0-8.0) Urine Specific [place] 1.015 (1.000-1.030) Urine Protein 100 mg/dL (NEG-TRACE) Urine Glucose (UA) Negative mg/dL (NEG) Urine Ketones (Stick) Trace mg/dL (NEG) Urine Blood Negative (NEG) Urine Nitrite Negative (NEG) Urine Bilirubin Negative (NEG) Urine Urobilinogen Dipstick 0.2 mg/dL (0.2 mg/dL) Urine Leukocyte Esterase Negative (NEG) Urine RBC 1-2 /HPF (0-2) Urine WBC 1-4 /HPF (0-4) Urine Squamous Epithelial Cells Many /LPF Urine Bacteria Few /HPF (0-FEW) Urine Hyaline Casts Occasional /HPF Urine Mucus Marked /LPF Assessment/Plan Assessment/Plan Acute hypoxic respiratory failure secondary to COVID-19 pneumonia versus superimposed bacterial pneumonia, history of A. fib COPD fibromyalgia hypertension hyperlipidemia -admit to hospitalist for Covid treatment -Dexamethasone. Did okay with cephalosporin in emergency room will continue despite allergies; add Doxy as well -Provide Combivent inhaler -Wean oxygen as tolerated on baseline home 3 L -DVT prophylaxis -Home meds resumed as indicated -Advance diet as tolerated Justifications for Admission Other Justification AKASH LAM MD Jul 17, 2021 18:12
[2021-07-17] MEDS: BUDESONIDE 0.5 MG/2 ML NEBU. NEB SCH (20:00)
[2021-07-17] MEDS: PATCH REMOVAL. MC SCH (21:00)
[2021-07-17] MEDS ORDERED: NON FORMULARY ITEM (Budesonide/Formoterol Fumarate (Symbicort 160-4.5 Mcg Inhaler) 2 PUFF) IH SCH (21:00)
[2021-07-17] MEDS: HEPARIN for SUB-Q USE 5,000 UNIT/ML VIAL. SQ SCH (22:00)
[2021-07-17] MEDS: DOXYCYCLINE HYCLATE 100 MG TABLET PO SCH (22:10)
[2021-07-17] MEDS: SENNOSIDES/DOCUSATE 8.6/50MG TABLET. PO SCH (22:10)
[2021-07-17] MEDS: GABAPENTIN 300 MG CAPSULE. PO SCH (22:10)
[2021-07-17] MEDS: BENZONATATE 100 MG CAPSULE. PO SCH (22:11)
[2021-07-17] MEDS: ALPRAZolam 0.5 MG TABLET PO SCH (22:11)
[2021-07-17] MEDS: MONTELUKAST SODIUM 10 MG TABLET. PO SCH (22:11)
[2021-07-17] MEDS: methylPREDNISolone SOD SUCC PF 40 MG/ML VIAL. IV SCH (22:12)
[2021-07-17 22:15] VITALS: BP 149/72
[2021-07-17] MEDS: oxyCODONE/APAP 5/325 1 TAB TABLET PO PRN (23:15)
[2021-07-17 23:37] VITALS: BP 154/78
[2021-07-18] VITALS (7 sets, daily range): BP systolic 128–160; BP diastolic 61–91
--- NOTE | 2021-07-18 05:03 | NUR ---
Protonix ordered for 1629 not administered per this administrative underwriter, not here at work at this time
[2021-07-18] MEDS: HEPARIN for SUB-Q USE 5,000 UNIT/ML VIAL. SQ SCH ×3 (05:04→20:44)
--- NOTE | 2021-07-18 05:04 | NUR ---
Patient refuses 2200 heparin, and states she doesn't need it now.
[2021-07-18] MEDS: methylPREDNISolone SOD SUCC PF 40 MG/ML VIAL. IV SCH ×3 (05:33→20:34)
[2021-07-18] MEDS: ALBUTEROL SULFATE 2.5 MG/3 ML NEBU. NEB SCH ×2 (07:35→10:11)
[2021-07-18] MEDS: BUDESONIDE 0.5 MG/2 ML NEBU. NEB SCH ×2 (07:35→20:00)
[2021-07-18] MEDS: LOSARTAN POTASSIUM 50 MG TABLET. PO SCH (08:13)
[2021-07-18] MEDS: LACTOBACILLUS RHAMNOSUS GG 1 CAPSULE. PO SCH ×2 (08:13→20:33)
[2021-07-18] MEDS: GABAPENTIN 300 MG CAPSULE. PO SCH ×2 (08:14→20:33)
[2021-07-18] MEDS: DULoxetine HCL 30 MG CAPSULE.DR PO SCH (08:14)
[2021-07-18] MEDS: DOXYCYCLINE HYCLATE 100 MG TABLET PO SCH ×2 (08:14→20:34)
[2021-07-18] MEDS: BENZONATATE 100 MG CAPSULE. PO SCH ×2 (08:14→20:33)
[2021-07-18] MEDS: PANTOPRAZOLE 40 MG TABLET.DR. PO SCH (08:15)
[2021-07-18] MEDS: ASPIRIN CHEWABLE 81 MG TABLET. PO SCH (08:15)
[2021-07-18] MEDS: LIDOCAINE (700MG/PATCH) PATCH. TD SCH (08:23)
[2021-07-18] MEDS: oxyCODONE/APAP 5/325 1 TAB TABLET PO PRN ×2 (08:27→17:01)
[2021-07-18] MEDS: SENNOSIDES/DOCUSATE 8.6/50MG TABLET. PO SCH ×2 (09:00→20:33)
[2021-07-18] MEDS: FLUTICASONE 50MCG/NASAL SPRAY 16GM BOTTLE. NS SCH (13:48)
--- NOTE | 2021-07-18 13:51 | PDOC ---
[employer] PROGRESS NOTE Date of Service DOS: DATE: 07/18/21 TIME: 13:50 Chief Complaint Chief Complaint Assessment/Plan Acute hypoxic respiratory failure secondary to COVID-19 pneumonia versus superimposed bacterial pneumonia, history of A. fib COPD fibromyalgia hypertension hyperlipidemia -admit to hospitalist for Covid treatment -Dexamethasone. Did okay with cephalosporin in emergency room will continue despite allergies; add Doxy as well -Provide Combivent inhaler -Wean oxygen as tolerated on baseline home 3 L -DVT prophylaxis -Home meds resumed as indicated -Advance diet as tolerated History of Present Illness History of Present Illness 07/18 Seen at bedside. Patient resting in bed. On 3 L nasal cannula. Continue COVID treatment. Hopeful to get a room upstairs soon. Plan discussed with bedside RN. Vitals/I&O Vitals/I&O: Vital Signs Date Time Temp Pulse Resp B/P (MAP) Pulse Ox O2 Delivery O2 Flow Rate FiO2 07/18/21 08:27 92 Nasal Cannula 3.0 07/18/21 08:14 92 149/83 07/18/21 07:20 97.8 22 97.8 Physical Exam General: Alert, Oriented X3, Cooperative Heart: Regular rate Lungs: Clear Abdomen: Normal bowel sounds, Soft, No tenderness Extremities: No edema, Normal pulses Skin: No significant lesion Labs Labs: Laboratory Tests Test 07/17/21 15:38 07/17/21 17:02 07/17/21 22:32 SARS-CoV-2 RNA (ALBARO) Positive (Negative) SARS-CoV-2 Antigen (Rapid) Negative (NEGATIVE) Urine Color Yellow Urine Clarity Clear Urine pH 6.5 (<5.0-8.0) Urine Specific [place] 1.015 (1.000-1.030) Urine Protein 100 mg/dL (NEG-TRACE) Urine Glucose (UA) Negative mg/dL (NEG) Urine Ketones (Stick) Trace mg/dL (NEG) Urine Blood Negative (NEG) Urine Nitrite Negative (NEG) Urine Bilirubin Negative (NEG) Urine Urobilinogen Dipstick 0.2 mg/dL (0.2 mg/dL) Urine Leukocyte Esterase Negative (NEG) Urine RBC 1-2 /HPF (0-2) Urine WBC 1-4 /HPF (0-4) Urine Squamous Epithelial Cells Many /LPF Urine Bacteria Few /HPF (0-FEW) Urine Hyaline Casts Occasional /HPF Urine Mucus Marked /LPF Lactic Acid Level 1.5 mmol/L (0.4-2.0) Assessment and Plan Assessmemt and Plan Problems Medical Problems: (1) Person under investigation for COVID-19 Status: Acute (2) Pneumonia Status: Acute (3) Sepsis Status: Acute Comment Review of Relevant I have reviewed the following items nieves (where applicable) has been applied. Medications: Current Medications Medications (Trade) Dose Ordered Sig/Alan Route PRN Reason Start Time Stop Time Status Last Admin Dose Admin Azithromycin 500 mg/Sodium Chloride 250 ml @ 250 mls/hr 1X ONCE IV 07/17/21 15:00 07/17/21 15:59 DC 07/17/21 15:33 Ceftriaxone Sodium (Rocephin) 1 gm 1X ONCE IVP 07/17/21 14:15 07/17/21 14:16 DC 07/17/21 15:33 Sodium Chloride 1,000 ml @ 1,000 mls/hr 1X ONCE IV 07/17/21 14:45 07/17/21 15:44 DC 07/17/21 15:32 Doxycycline Hyclate (Vibra-Tab) 100 mg BID PO 07/17/21 21:00 07/18/21 08:14 Alprazolam (Xanax) 0.5 mg QHS PO 07/17/21 21:00 07/17/21 22:11 Aspirin (Aspirin Chewable) 81 mg DAILY PO 07/18/21 09:00 07/18/21 08:15 Benzonatate (Tessalon Perle) 100 mg BID PO 07/17/21 21:00 07/18/21 08:14 Diltiazem HCl (Cardizem 24hr Cd) 120 mg DAILY PO 07/18/21 09:00 07/18/21 08:14 Gabapentin (Neurontin) 300 mg BID PO 07/17/21 21:00 07/18/21 08:14 Losartan Potassium (Cozaar) 50 mg DAILY PO 07/18/21 09:00 07/18/21 08:13 Montelukast Sodium (Singulair) 10 mg HS PO 07/17/21 21:00 07/17/21 22:11 Duloxetine HCl (Cymbalta) 60 mg DAILY PO 07/18/21 09:00 07/18/21 08:14 Pantoprazole Sodium (Protonix) 40 mg DAILYAC PO 07/17/21 16:30 07/18/21 08:15 Methylprednisolone Sodium Succinate (SOLU-Medrol 40MG VIAL) 40 mg Q8HRS IV 07/17/21 22:00 07/18/21 05:33 Senna/Docusate Sodium (Senna Plus) 1 tab BID PO 07/17/21 21:00 07/17/21 22:10 Oxycodone/ Acetaminophen (Percocet 5/325) 1 tab PRN Q4HRS PRN PO MODERATE-SEVERE PAIN 07/17/21 23:00 07/18/21 08:27 Lidocaine (Lidoderm) 1 patch DAILY TD 07/18/21 09:00 07/18/21 08:23 Lactobacillus Rhamnosus (Culturelle) 1 cap BID PO 07/18/21 09:00 07/18/21 08:13 Justifications for Admission Other Justification AKASH LAM MD Jul 18, 2021 13:51
[2021-07-18] MEDS: ALBUTEROL SULFATE 8GM INHALER. INH SCH ×2 (16:00→20:00)
--- NOTE | 2021-07-18 16:00 | NUR ---
Report called to Tomeka PAREDES on .
--- NOTE | 2021-07-18 16:19 | NUR ---
Tx to [address] by cart.
--- NOTE | 2021-07-18 16:20 | NUR ---
Patient arrived to room 650 from ER at 1620. Patient A&OX4. VSS. Complaints of pain in knees, back. Admission questions completed, med list updated/corrected.
[2021-07-18] MEDS: FUROSEMIDE 20 MG TABLET PO SCH (17:02)
[2021-07-18] MEDS: cefTRIAXone IV Push 1 GM VIAL. IVP SCH (17:06)
[2021-07-18] MEDS ORDERED: HYDR50CA2 PO (19:07)
[2021-07-18] MEDS ORDERED: FURO40TA4 PO (19:07)
[2021-07-18] MEDS ORDERED: HYDR-2761 PO (19:07)
[2021-07-18] MEDS ORDERED: APIX5TAB PO (19:07)
[2021-07-18] MEDS ORDERED: PROAIR RESPICL90 MCG IH (19:07)
[2021-07-18] MEDS ORDERED: NALO4SPR NS (19:10)
--- NOTE | 2021-07-18 19:31 | NUR ---
message left with answering service that home medication list has been update, requested physician review list.
[2021-07-18] MEDS: ALPRAZolam 0.5 MG TABLET PO SCH (20:33)
[2021-07-18] MEDS: MONTELUKAST SODIUM 10 MG TABLET. PO SCH (20:34)
[2021-07-18] MEDS: PATCH REMOVAL. MC SCH (20:45)
[2021-07-19 03:40] VITALS: BP 135/74
[2021-07-19] MEDS: methylPREDNISolone SOD SUCC PF 40 MG/ML VIAL. IV SCH ×3 (05:48→20:06)
[2021-07-19] MEDS: oxyCODONE/APAP 5/325 1 TAB TABLET PO PRN ×3 (05:52→20:10)
[2021-07-19] MEDS: HEPARIN for SUB-Q USE 5,000 UNIT/ML VIAL. SQ SCH (05:52)
[2021-07-19 07:00] VITALS: BP 145/87
[2021-07-19] MEDS: BUDESONIDE 0.5 MG/2 ML NEBU. NEB SCH (08:00)
[2021-07-19] MEDS: ASPIRIN CHEWABLE 81 MG TABLET. PO SCH (09:00)
[2021-07-19] MEDS: LIDOCAINE (700MG/PATCH) PATCH. TD SCH (09:00)
[2021-07-19] MEDS: ALBUTEROL SULFATE 8GM INHALER. INH SCH ×4 (09:00→20:00)
[2021-07-19] MEDS: FLUTICASONE 50MCG/NASAL SPRAY 16GM BOTTLE. NS SCH (09:00)
[2021-07-19] MEDS: SENNOSIDES/DOCUSATE 8.6/50MG TABLET. PO SCH ×3 (09:00→21:00)
[2021-07-19] MEDS: PANTOPRAZOLE 40 MG TABLET.DR. PO SCH (09:18)
[2021-07-19] MEDS: GABAPENTIN 300 MG CAPSULE. PO SCH ×2 (09:18→20:05)
[2021-07-19] MEDS: DULoxetine HCL 30 MG CAPSULE.DR PO SCH (09:18)
[2021-07-19] MEDS: BENZONATATE 100 MG CAPSULE. PO SCH ×2 (09:18→20:05)
[2021-07-19] MEDS: DOXYCYCLINE HYCLATE 100 MG TABLET PO SCH ×2 (09:18→20:05)
[2021-07-19] MEDS: LACTOBACILLUS RHAMNOSUS GG 1 CAPSULE. PO SCH ×2 (09:18→20:05)
[2021-07-19] MEDS: FUROSEMIDE 20 MG TABLET PO SCH (09:19)
[2021-07-19] MEDS: LOSARTAN POTASSIUM 50 MG TABLET. PO SCH (09:20)
[2021-07-19 11:00] VITALS: BP 126/66
[2021-07-19] MEDS ORDERED: FUROSEMIDE 40 MG TABLET. PO PRN (12:00)
[2021-07-19] MEDS: hydrOXYzine 25 MG TABLET PO SCH ×2 (12:00→20:06)
[2021-07-19 15:00] VITALS: BP 143/86
[2021-07-19] MEDS: cefTRIAXone IV Push 1 GM VIAL. IVP SCH (16:50)
[2021-07-19 19:37] VITALS: BP 176/90
--- NOTE | 2021-07-19 19:58 | PDOC ---
[employer] PROGRESS NOTE Date of Service DOS: DATE: 07/19/21 TIME: 19:57 Chief Complaint Chief Complaint Assessment/Plan Acute hypoxic respiratory failure secondary to COVID-19 pneumonia versus superimposed bacterial pneumonia, history of A. fib COPD fibromyalgia hypertension hyperlipidemia -admit to hospitalist for Covid treatment -Dexamethasone. Did okay with cephalosporin in emergency room will continue despite allergies; add Doxy as well -Provide Combivent inhaler -Wean oxygen as tolerated on baseline home 3 L -DVT prophylaxis -Home meds resumed as indicated -Advance diet as tolerated History of Present Illness History of Present Illness 07/19 Evaluated examined at bedside. Restin in bed easily awoken. Explained covid treatment p;ritika. She was agreeable and very pleasant. Continue current. Discussed with bedside RN. positive blood cultures likely contaminant. 07/18 Seen at bedside. Patient resting in bed. On 3 L nasal cannula. Continue COVID treatment. Hopeful to get a room upstairs soon. Plan discussed with bedside RN. Vitals/I&O Vitals/I&O: Vital Signs Date Time Temp Pulse Resp B/P (MAP) Pulse Ox O2 Delivery O2 Flow Rate FiO2 07/19/21 19:37 97.2 92 20 176/90 (118) 95 Nasal Cannula 3.0 97.2 I & O 07/18/21 07/18/21 07/19/21 15:00 23:00 07:00 Intake Total 360 ml 150 ml Balance 360 ml 150 ml Physical Exam General: Alert, Oriented X3, Cooperative Heart: Regular rate Lungs: Clear Abdomen: Normal bowel sounds, Soft, No tenderness Extremities: No edema, Normal pulses Skin: No significant lesion Assessment and Plan Assessmemt and Plan Problems Medical Problems: (1) Person under investigation for COVID-19 Status: Acute (2) Pneumonia Status: Acute (3) Sepsis Status: Acute Comment Review of Relevant I have reviewed the following items nieves (where applicable) has been applied. Justifications for Admission Other Justification AKASH LAM MD Jul 19, 2021 19:58
[2021-07-19] MEDS: FLUTICASONE FUROATE 100mcg/INH ELLIPTA INHALER. INH SCH (20:00)
[2021-07-19] MEDS: APIXABAN 5 MG TABLET. PO SCH (20:05)
[2021-07-19] MEDS: MONTELUKAST SODIUM 10 MG TABLET. PO SCH (20:05)
[2021-07-19] MEDS: ALPRAZolam 0.5 MG TABLET PO SCH (20:05)
[2021-07-19] MEDS: PATCH REMOVAL. MC SCH (20:05)
[2021-07-19 23:04] VITALS: BP 123/70
[2021-07-20] MEDS: oxyCODONE/APAP 5/325 1 TAB TABLET PO PRN ×3 (02:39→19:46)
[2021-07-20 02:43] VITALS: BP 178/98
[2021-07-20] MEDS: methylPREDNISolone SOD SUCC PF 40 MG/ML VIAL. IV SCH ×3 (05:49→19:46)
[2021-07-20] MEDS: ALBUTEROL SULFATE 8GM INHALER. INH SCH ×4 (08:00→19:47)
[2021-07-20] MEDS: LIDOCAINE (700MG/PATCH) PATCH. TD SCH (09:00)
[2021-07-20] MEDS: LACTOBACILLUS RHAMNOSUS GG 1 CAPSULE. PO SCH ×2 (10:06→19:45)
[2021-07-20] MEDS: SENNOSIDES/DOCUSATE 8.6/50MG TABLET. PO SCH ×2 (10:06→19:46)
[2021-07-20] MEDS: BENZONATATE 100 MG CAPSULE. PO SCH ×2 (10:06→19:45)
[2021-07-20] MEDS: hydrOXYzine 25 MG TABLET PO SCH ×2 (10:06→19:46)
[2021-07-20] MEDS: DOXYCYCLINE HYCLATE 100 MG TABLET PO SCH ×2 (10:07→19:46)
[2021-07-20] MEDS: APIXABAN 5 MG TABLET. PO SCH ×2 (10:07→19:46)
[2021-07-20] MEDS: LOSARTAN POTASSIUM 50 MG TABLET. PO SCH (10:07)
[2021-07-20] MEDS: PANTOPRAZOLE 40 MG TABLET.DR. PO SCH (10:07)
[2021-07-20] MEDS: DULoxetine HCL 30 MG CAPSULE.DR PO SCH (10:08)
[2021-07-20] MEDS: GABAPENTIN 300 MG CAPSULE. PO SCH ×2 (10:09→19:45)
[2021-07-20] MEDS: FLUTICASONE 50MCG/NASAL SPRAY 16GM BOTTLE. NS SCH (10:10)
[2021-07-20 10:21] VITALS: BP 159/84
[2021-07-20] MEDS ORDERED: hydrALAZINE 20 MG/ML VIAL. IVP PRN (11:00)
--- NOTE | 2021-07-20 12:16 | PDOC ---
[employer] PROGRESS NOTE Date of Service DOS: DATE: 07/20/21 TIME: 12:14 Chief Complaint Chief Complaint Assessment/Plan Acute hypoxic respiratory failure secondary to COVID-19 pneumonia versus superimposed bacterial pneumonia, history of A. fib COPD fibromyalgia hypertension hyperlipidemia -admit to hospitalist for Covid treatment -Dexamethasone. Did okay with cephalosporin in emergency room will continue despite allergies; add Doxy as well -Provide Combivent inhaler -Wean oxygen as tolerated on baseline home 3 L -DVT prophylaxis -Home meds resumed as indicated -Advance diet as tolerated History of Present Illness History of Present Illness 07/20 Patient evaluated examined at bedside. He was in bed talking on the phone. She is having a hard time catching her breath still but saturations are still doing okay. Continue COVID treatment. Patient visibly and she admits to feeling very anxious about the situation. We will try some as needed Ativan for her. PT OT ordered. 07/19 Evaluated examined at bedside. Restin in bed easily awoken. Explained covid treatment p;ritika. She was agreeable and very pleasant. Continue current. Discussed with bedside RN. positive blood cultures likely contaminant. 07/18 Seen at bedside. Patient resting in bed. On 3 L nasal cannula. Continue COVID treatment. Hopeful to get a room upstairs soon. Plan discussed with bedside RN. Vitals/I&O Vitals/I&O: Vital Signs Date Time Temp Pulse Resp B/P (MAP) Pulse Ox O2 Delivery O2 Flow Rate FiO2 07/20/21 10:42 98 Nasal Cannula 3.0 07/20/21 10:21 97.8 83 18 159/84 (109) 97.8 I & O 07/19/21 07/19/21 07/20/21 15:00 23:00 07:00 Intake Total 260 ml 200 ml 150 ml Output Total 500 ml Balance 260 ml 200 ml -350 ml Physical Exam General: Alert, Oriented X3, Cooperative, moderate distress Heart: Regular rate Lungs: Clear Abdomen: Normal bowel sounds, Soft, No tenderness Extremities: No edema, Normal pulses Skin: No significant lesion Assessment and Plan Assessmemt and Plan Problems Medical Problems: (1) Person under investigation for COVID-19 Status: Acute (2) Pneumonia Status: Acute (3) Sepsis Status: Acute Comment Review of Relevant I have reviewed the following items nieves (where applicable) has been applied. Medications: Current Medications Medications (Trade) Dose Ordered Sig/Alan Route PRN Reason Start Time Stop Time Status Last Admin Dose Admin Apixaban (Eliquis) 5 mg BID PO 07/19/21 21:00 07/20/21 10:07 Fluticasone Furoate (ARNUITY 100mcg ELLIPTA) 1 puff DAILY@1999 INH 07/19/21 20:00 07/19/21 20:00 Justifications for Admission Other Justification AKASH LAM MD Jul 20, 2021 12:16
--- NOTE | 2021-07-20 14:12 | CONS ---
DATE OF CONSULTATION: 07/20/2021 REASON FOR CONSULTATION: Atrial fibrillation. HISTORY OF PRESENT ILLNESS: The patient is a 60-year-old woman with past medical history as noted below, who presents to the hospital in the setting of pneumonia and has been positive for coronavirus. She was noted to have paroxysms of atrial fibrillation on telemetry monitoring and therefore, the Cardiology service was asked to evaluate her. The patient currently denies any chest pain, but is anxious and dyspneic. PAST MEDICAL HISTORY: 1. Paroxysmal atrial fibrillation, status post ablation recently through [facility]. 2. Hypertension. 3. COPD. 4. Prior history of tobacco abuse. ALLERGIES: PENICILLINS AND SULFA. REVIEW OF SYSTEMS: Negative for 10 out of 14 systems reviewed, unless otherwise mentioned above in HPI. CURRENT CARDIOVASCULAR MEDICATIONS: 1. Apixaban 5 mg p.o. b.i.d. 2. Lasix 40 mg p.o. as needed. 3. Losartan 50 mg daily. 4. Diltiazem 120 mg daily. PHYSICAL EXAMINATION: VITAL SIGNS: Afebrile, heart rate 83, respiratory rate 18, blood pressure 159/84, O2 sat of 98% on 3 liters nasal cannula. GENERAL: Rest of the physical examination deferred and the patient is currently otherwise alert and oriented x 3 according to the primary care physician's note. HEART: Tones are regular. LUNGS: Clear. ABDOMEN: Soft, nontender. EXTREMITIES: No clubbing, cyanosis or edema. NEUROLOGIC: No focal deficits. In person examination deferred due to the current pandemic situation. DIAGNOSTIC STUDIES AND LABORATORY STUDIES: Notable for positive coronavirus. Creatinine within normal limits. Hemoglobin of 10.5 with a platelet count of 314. Chest x-ray is notable for right greater than left lower lobe infiltrate and mild effusion. EKG demonstrates sinus rhythm with nonspecific ST-T wave changes. BNP is elevated at 5793 and cardiac enzymes are negative x 1. IMPRESSION: Paroxysms of atrial fibrillation in the setting of recent coronavirus infection. RECOMMENDATIONS: Continue diltiazem and Eliquis. No further medication titration is necessary. If she has any persistent atrial fibrillation, at that time, consider antiarrhythmic drug therapy. Supportive care for now. We will follow along closely. SUKHWINDER/CORDELIA/FARTUN DR: SUKHWINDER/maddie TID: [id number]
[2021-07-20 15:00] VITALS: BP 158/88
[2021-07-20] MEDS: cefTRIAXone IV Push 1 GM VIAL. IVP SCH (17:46)
[2021-07-20 19:12] VITALS: BP 180/94
[2021-07-20] MEDS: MONTELUKAST SODIUM 10 MG TABLET. PO SCH (19:45)
[2021-07-20] MEDS: PATCH REMOVAL. MC SCH (19:46)
[2021-07-20] MEDS: FLUTICASONE FUROATE 100mcg/INH ELLIPTA INHALER. INH SCH (19:47)
[2021-07-20 22:37] VITALS: BP 160/88
[2021-07-21] MEDS: oxyCODONE/APAP 5/325 1 TAB TABLET PO PRN ×3 (02:04→19:47)
[2021-07-21 02:56] VITALS: BP 171/103
[2021-07-21] MEDS: methylPREDNISolone SOD SUCC PF 40 MG/ML VIAL. IV SCH ×3 (05:48→19:48)
[2021-07-21 07:00] VITALS: BP 170/95
[2021-07-21] MEDS: APIXABAN 5 MG TABLET. PO SCH ×2 (08:53→19:47)
[2021-07-21] MEDS: LOSARTAN POTASSIUM 50 MG TABLET. PO SCH (08:53)
[2021-07-21] MEDS: DULoxetine HCL 30 MG CAPSULE.DR PO SCH (08:53)
[2021-07-21] MEDS: BENZONATATE 100 MG CAPSULE. PO SCH ×2 (08:53→19:47)
[2021-07-21] MEDS: GABAPENTIN 300 MG CAPSULE. PO SCH ×2 (08:53→19:47)
[2021-07-21] MEDS: DOXYCYCLINE HYCLATE 100 MG TABLET PO SCH ×2 (08:54→19:48)
[2021-07-21] MEDS: SENNOSIDES/DOCUSATE 8.6/50MG TABLET. PO SCH ×2 (08:54→19:47)
[2021-07-21] MEDS: PANTOPRAZOLE 40 MG TABLET.DR. PO SCH (08:54)
[2021-07-21] MEDS: hydrOXYzine 25 MG TABLET PO SCH ×2 (08:54→19:47)
[2021-07-21] MEDS: FLUTICASONE 50MCG/NASAL SPRAY 16GM BOTTLE. NS SCH (08:54)
[2021-07-21] MEDS: LIDOCAINE (700MG/PATCH) PATCH. TD SCH (08:54)
[2021-07-21] MEDS: ALBUTEROL SULFATE 8GM INHALER. INH SCH ×4 (08:55→20:00)
[2021-07-21] MEDS: LACTOBACILLUS RHAMNOSUS GG 1 CAPSULE. PO SCH ×2 (08:59→19:47)
[2021-07-21 11:00] VITALS: BP 169/94
--- NOTE | 2021-07-21 12:46 | PDOC ---
[employer] PROGRESS NOTE Date of Service DOS: DATE: 07/21/21 TIME: 12:38 Chief Complaint Chief Complaint Assessment/Plan Acute hypoxic respiratory failure secondary to COVID-19 pneumonia versus superimposed bacterial pneumonia, history of A. fib COPD fibromyalgia hypertension hyperlipidemia Acute on chronic hypoxic respiratory failure with AE COPD and diastolic CHF and COVID 19 - wean O2 as tolerated Acute COPD exacerbation - due to have 2nd COVID 19 vaccine today. Improved a bit with nebs and steroids Acute diastolic CHF - will give IV lasix Paroxysmal AFIB - not on any meds, has not had cardiology follow up Hypertension - controlled Hyperlipidemia - LDL 140 Smoker - counseled on cessation -admit to hospitalist for Covid treatment -Dexamethasone. Did okay with cephalosporin in emergency room will continue despite allergies; add Doxy as well -Provide Combivent inhaler -Wean oxygen as tolerated on baseline home 3 L -DVT prophylaxis -Home meds resumed as indicated -Advance diet as tolerated History of Present Illness History of Present Illness Ms Tao is a 60 yo F w/ PMHx atrial fibrillation, cardiomyopathy with preserved EF, hyperlipidemia, depression, fibromyalgia, smoker, and COPD comes in with worsening shortness of breath and weakness. She and her son tested positive for the rapid COVID-19 test at home at the beginning of June. She was still positive in the ED here. 07/20: In bed talking on the phone. She is having a hard time catching her breath still but saturations are still doing okay. Continue COVID treatment. Feeling very anxious 07/19: Evaluated examined at bedside. Restin in bed easily awoken. Explained covid treatment p;ritika. She was agreeable and very pleasant. positive blood cultures likely contaminant. 07/18: Seen at bedside. Patient resting in bed. On 3 L nasal cannula. Continue COVID treatment. Hopeful to get a room upstairs soon. Plan discussed with bedside RN. 07/21: Feeling very weak. Still on 3 L of nasal cannula oxygen. Having trouble getting up in bed. Appetite is improved but just very weak. Vitals/I&O Vitals/I&O: Vital Signs Date Time Temp Pulse Resp B/P (MAP) Pulse Ox O2 Delivery O2 Flow Rate FiO2 07/21/21 12:16 Nasal Cannula 3.0 07/21/21 11:00 97.9 84 20 169/94 (119) 99 97.9 I & O 07/20/21 07/20/21 07/21/21 15:00 23:00 07:00 Intake Total 520 ml 500 ml 0 ml Output Total 800 ml Balance 520 ml -300 ml 0 ml Physical Exam General: Alert, Oriented X3, Cooperative, moderate distress Heart: Regular rate Lungs: Clear Abdomen: Normal bowel sounds, Soft, No tenderness Extremities: No edema, Normal pulses Skin: No significant lesion Assessment and Plan Assessmemt and Plan Problems Medical Problems: (1) Person under investigation for COVID-19 Status: Acute (2) Pneumonia Status: Acute (3) Sepsis Status: Acute Comment Review of Relevant I have reviewed the following items nieves (where applicable) has been applied. Justifications for Admission Other Justification AKASH LOUIS MD Jul 21, 2021 12:46
[2021-07-21 13:12] LABS: BASO % 0 % (0-3); EOS % 0 % (0-3); HEMATOCRIT 34.3 % (36.0-47.0); HEMOGLOBIN 11.4 g/dL (12.0-15.5); LYMPH # 0.3 x10^3/uL (1.0-4.8); LYMPH % 4 % (24-48); MEAN CORPUSCULAR HEMOGLOBIN 32 pg (25-35); MEAN CORPUSCULAR HGB CONC 33 g/dL (31-37); MEAN CORPUSCULAR VOLUME 95 fL (79-100); MONO # 0.5 x10^3/uL (0.0-1.1); MONO % 5 % (0-9); NEUT # 9.1 x10^3/uL (1.8-7.7); NEUT % 91 % (31-73); PLATELET COUNT 312 x10^3/uL (140-400); RED BLOOD COUNT 3.59 x10^6/uL (3.50-5.40); RED CELL DISTRIBUTION WIDTH 14.3 % (11.5-14.5); WHITE BLOOD COUNT 9.9 x10^3/uL (4.0-11.0)
[2021-07-21 13:28] LABS: CALCIUM 8.2 mg/dL (8.5-10.1); CREATININE 0.7 mg/dL (0.6-1.0); GFR 85.1; POTASSIUM 3.6 mmol/L (3.5-5.1)
--- NOTE | 2021-07-21 14:40 | NUR ---
SS following for discharge planning. SS reviewed pt chart and discussed with pt RN. Pt is from home and is currently requiring oxygen at three liters nasal canula. COVID19 positive. Pt has no home oxygen. Pt on IV Solu-Medrol and IV Rocephin. Pt listed as self pay. PT recommended home. SS met with pt and received copy of her insurance card. [facility] Plan. . Med Assist and Case Management notified. Copy of card placed on chart. SS will continue to follow for discharge planning.
[2021-07-21 14:43] LABS: % BANDS 1 % (0-9); % LYMPHS 5 % (24-48); % MONOS 4 % (0-10); % SEGS 90 % (35-66); PLT ESTIMATE ADEQUATE (ADEQUATE)
[2021-07-21 15:27] VITALS: BP 165/86
--- NOTE | 2021-07-21 16:47 | PDOC ---
PROGRESS NOTES Date of Service DATE: 07/21/21 TIME: 16:44 Subjective Subjective The patient was seen and evaluated. Objective Objective Vital Signs Date Time Temp Pulse Resp B/P (MAP) Pulse Ox O2 Delivery O2 Flow Rate FiO2 07/21/21 15:27 97.6 92 17 165/86 (112) 98 Nasal Cannula 3.0 97.6 Intake and Output 07/21/21 07:00 Intake Total 1020 ml Output Total 800 ml Balance 220 ml Intake Oral 1020 ml Output Urine Total 800 ml Physical Exam Physical Exam Visual examination as per guidelines. Assessment Assessment Problems Medical Problems: (1) Person under investigation for COVID-19 Status: Acute (2) Pneumonia Status: Acute (3) Sepsis Status: Acute Acute hypoxic respiratory failure secondary to COVID-19 pneumonia versus superimposed bacterial pneumonia, history of A. fib COPD fibromyalgia hypertension hyperlipidemia Respiratory failure. Covid pneumonia and probable bacterial pneumonia. Continuing on present treatments. O2 as required. COPD exacerbation. Continue baseline medications. Probable diastolic heart failure. Elevated BNP. Echo as per guidelines. Hypertension. Under better control. Hyperlipidemia. Continue present treatment. Paroxysmal atrial fibrillation. In sinus rhythm today. We will treat with Cardizem as tolerated. Anticoagulation. Comment Review of Relevant I have reviewed the following items nieves (where applicable) has been applied. Labs Laboratory Tests Test 07/21/21 12:52 White Blood Count 9.9 x10^3/uL (4.0-11.0) Red Blood Count 3.59 x10^6/uL (3.50-5.40) Hemoglobin 11.4 g/dL (12.0-15.5) Hematocrit 34.3 % (36.0-47.0) Mean Corpuscular Volume 95 fL (79-100) Mean Corpuscular Hemoglobin 32 pg (25-35) Mean Corpuscular Hemoglobin Concent 33 g/dL (31-37) Red Cell Distribution Width 14.3 % (11.5-14.5) Platelet Count 312 x10^3/uL (140-400) Neutrophils (%) (Auto) 91 % (31-73) Lymphocytes (%) (Auto) 4 % (24-48) Monocytes (%) (Auto) 5 % (0-9) Eosinophils (%) (Auto) 0 % (0-3) Basophils (%) (Auto) 0 % (0-3) Neutrophils # (Auto) 9.1 x10^3/uL (1.8-7.7) Lymphocytes # (Auto) 0.3 x10^3/uL (1.0-4.8) Monocytes # (Auto) 0.5 x10^3/uL (0.0-1.1) Eosinophils # (Auto) 0.0 x10^3/uL (0.0-0.7) Basophils # (Auto) 0.0 x10^3/uL (0.0-0.2) Segmented Neutrophils % 90 % (35-66) Band Neutrophils % 1 % (0-9) Lymphocytes % 5 % (24-48) Monocytes % 4 % (0-10) Platelet Estimate Adequate (ADEQUATE) Large Platelets Few Sodium Level 138 mmol/L (136-145) Potassium Level 3.6 mmol/L (3.5-5.1) Chloride Level 101 mmol/L (98-107) Carbon Dioxide Level 34 mmol/L (21-32) Anion Gap 3 (6-14) Blood Urea Nitrogen 24 mg/dL (7-20) Creatinine 0.7 mg/dL (0.6-1.0) Estimated GFR (Cockcroft-Gault) 85.1 Glucose Level 145 mg/dL (70-99) Calcium Level 8.2 mg/dL (8.5-10.1) Magnesium Level 2.0 mg/dL (1.8-2.4) Laboratory Tests Test 07/21/21 12:52 White Blood Count 9.9 x10^3/uL (4.0-11.0) Red Blood Count 3.59 x10^6/uL (3.50-5.40) Hemoglobin 11.4 g/dL (12.0-15.5) Hematocrit 34.3 % (36.0-47.0) Mean Corpuscular Volume 95 fL (79-100) Mean Corpuscular Hemoglobin 32 pg (25-35) Mean Corpuscular Hemoglobin Concent 33 g/dL (31-37) Red Cell Distribution Width 14.3 % (11.5-14.5) Platelet Count 312 x10^3/uL (140-400) Neutrophils (%) (Auto) 91 % (31-73) Lymphocytes (%) (Auto) 4 % (24-48) Monocytes (%) (Auto) 5 % (0-9) Eosinophils (%) (Auto) 0 % (0-3) Basophils (%) (Auto) 0 % (0-3) Neutrophils # (Auto) 9.1 x10^3/uL (1.8-7.7) Lymphocytes # (Auto) 0.3 x10^3/uL (1.0-4.8) Monocytes # (Auto) 0.5 x10^3/uL (0.0-1.1) Eosinophils # (Auto) 0.0 x10^3/uL (0.0-0.7) Basophils # (Auto) 0.0 x10^3/uL (0.0-0.2) Segmented Neutrophils % 90 % (35-66) Band Neutrophils % 1 % (0-9) Lymphocytes % 5 % (24-48) Monocytes % 4 % (0-10) Platelet Estimate Adequate (ADEQUATE) Large Platelets Few Sodium Level 138 mmol/L (136-145) Potassium Level 3.6 mmol/L (3.5-5.1) Chloride Level 101 mmol/L (98-107) Carbon Dioxide Level 34 mmol/L (21-32) Anion Gap 3 (6-14) Blood Urea Nitrogen 24 mg/dL (7-20) Creatinine 0.7 mg/dL (0.6-1.0) Estimated GFR (Cockcroft-Gault) 85.1 Glucose Level 145 mg/dL (70-99) Calcium Level 8.2 mg/dL (8.5-10.1) Magnesium Level 2.0 mg/dL (1.8-2.4) Microbiology 07/17/21 Blood Culture - Preliminary, Resulted NO GROWTH AFTER 4 DAYS Medications Current Medications Albuterol/ Ipratropium (Duoneb) 6 ml 1X ONCE NEB Last administered on 07/17/21at 14:50; Start 07/17/21 at 13:45; Stop 07/17/21 at 13:46; Status DC Methylprednisolone Sodium Succinate (SOLU-Medrol 125MG VIAL) 125 mg 1X ONCE IV Last administered on 07/17/21at 13:58; Start 07/17/21 at 13:45; Stop 07/17/21 at 13:46; Status DC Azithromycin 500 mg/Sodium Chloride 250 ml @ 250 mls/hr 1X ONCE IV Last administered on 07/17/21at 15:33; Start 07/17/21 at 15:00; Stop 07/17/21 at 15:59 ; Status DC Ceftriaxone Sodium (Rocephin) 1 gm 1X ONCE IVP Last administered on 07/17/21at 15:33; Start 07/17/21 at 14:15; Stop 07/17/21 at 14:16; Status DC Sodium Chloride 1,000 ml @ 1,000 mls/hr 1X ONCE IV Last administered on 07/17/21at 15:32; Start 07/17/21 at 14:45; Stop 07/17/21 at 15:44; Status DC Ceftriaxone Sodium (Rocephin) 1 gm Q24H IVP Last administered on 07/20/21at 17:46; Start 07/17/21 at 16:00; Stop 07/23/21 at 16:01 Doxycycline Hyclate (Vibra-Tab) 100 mg BID PO Last administered on 07/21/21at 08:54; Start 07/17/21 at 21:00; Stop 07/24/21 at 09:01 Alprazolam (Xanax) 0.5 mg QHS PO Last administered on 07/19/21at 20:05; Start 07/17/21 at 21:00; Stop 07/20/21 at 12:15; Status DC Aspirin (Aspirin Chewable) 81 mg DAILY PO Last administered on 07/18/21at 08:15; Start 07/18/21 at 09:00; Stop 07/19/21 at 11:54; Status DC Benzonatate (Tessalon Perle) 100 mg BID PO Last administered on 07/21/21at 08:53; Start 07/17/21 at 21:00 Diltiazem HCl (Cardizem 24hr Cd) 120 mg DAILY PO Last administered on 07/21/21at 08:53; Start 07/18/21 at 09:00 Fluticasone Propionate (Flonase) 1 spray DAILY NS Last administered on 07/21/21at 08:54; Start 07/18/21 at 09:00 Furosemide (Lasix) 20 mg DAILY PO Last administered on 07/19/21at 09:19; Start 07/18/21 at 09:00; Stop 07/19/21 at 11:54; Status DC Gabapentin (Neurontin) 300 mg BID PO Last administered on 07/21/21at 08:53; Start 07/17/21 at 21:00 Losartan Potassium (Cozaar) 50 mg DAILY PO Last administered on 07/21/21at 08:53; Start 07/18/21 at 09:00 Montelukast Sodium (Singulair) 10 mg HS PO Last administered on 07/20/21at 19:45; Start 07/17/21 at 21:00 Non-Formulary Medication (Budesonide/ Formoterol Fumarate (Symbicort 160-4.5 Mcg Inhaler)) 2 puff BID IH ; Start 07/17/21 at 21:00; Status UNV Duloxetine HCl (Cymbalta) 60 mg DAILY PO Last administered on 07/21/21at 08:53; Start 07/18/21 at 09:00 Pantoprazole Sodium (Protonix) 40 mg DAILYAC PO Last administered on 07/21/21at 08:54; Start 07/17/21 at 16:30 Methylprednisolone Sodium Succinate (SOLU-Medrol 40MG VIAL) 40 mg Q8HRS IV Last administered on 07/21/21at 15:22; Start 07/17/21 at 22:00 Ondansetron HCl (Zofran) 4 mg PRN Q6HRS PRN IVP NAUSEA/VOMITING; Start 07/17/21 at 15:30 Calcium Carbonate/ Glycine (Tums) 500 mg PRN Q3HRS PRN PO UPSET STOMACH; Start 07/17/21 at 15:30 Zolpidem Tartrate (Ambien) 5 mg PRN QHS PRN PO INSOMNIA, MAY REPEAT IN 1HR; Start 07/17/21 at 15:30 Info (Non-Icu Electrolyte Protocol) 1 ea PRN DAILY PRN MC SEE COMMENTS; Start 07/17/21 at 15:30 Acetaminophen (Tylenol) 650 mg PRN Q6HRS PRN PO Headaches, Temp > 101.5F; Start 07/17/21 at 15:30 Senna/Docusate Sodium (Senna Plus) 1 tab BID PO Last administered on 07/20/21at 10:06; Start 07/17/21 at 21:00 Heparin Sodium (Porcine) (Heparin Sodium) 5,000 unit Q8HRS SQ Last administered on 07/19/21at 05:52; Start 07/17/21 at 16:00; Stop 07/19/21 at 11:54; Status DC Albuterol Sulfate (Ventolin Neb Soln) 2.5 mg Q6HRS NEB ; Start 07/17/21 at 18:00; Stop 07/18/21 at 15:31; Status DC Budesonide (Pulmicort) 0.5 mg RTBID NEB ; Start 07/17/21 at 20:00; Stop 07/19/21 at 19:40; Status DC Oxycodone/ Acetaminophen (Percocet 5/325) 1 tab PRN Q4HRS PRN PO MODERATE- SEVERE PAIN Last administered on 07/21/21at 12:16; Start 07/17/21 at 23:00 Lidocaine (Lidoderm) 1 patch DAILY TD Last administered on 07/18/21at 08:23; Start 07/18/21 at 09:00 Miscellaneous (Lidoderm Patch Removal) 1 ea QHS MC Last administered on 07/18/21at 20:45; Start 07/17/21 at 21:00 Lactobacillus Rhamnosus (Culturelle) 1 cap BID PO Last administered on 07/21/21at 08:59; Start 07/18/21 at 09:00 Albuterol Sulfate (Ventolin Hfa) 1 puff RTQID INH Last administered on 07/21/21at 08:55; Start 07/18/21 at 16:00 Apixaban (Eliquis) 5 mg BID PO Last administered on 07/21/21at 08:53; Start 07/19/21 at 21:00 Furosemide (Lasix) 40 mg PRN DAILY PRN PO EDEMA; Start 07/19/21 at 12:00 Hydroxyzine HCl (Atarax) 50 mg BID PO Last administered on 07/21/21at 08:54; Start 07/19/21 at 12:00 Fluticasone Furoate (ARNUITY 100mcg ELLIPTA) 1 puff DAILY@2000 INH Last administered on 07/20/21at 19:47; Start 07/19/21 at 20:00 Hydralazine HCl (Apresoline Inj) 10 mg PRN Q4HRS PRN IVP ELEVATED BP, SEE COMMENTS; Start 07/20/21 at 11:00 Lorazepam (Ativan Inj) 1 mg PRN Q4HRS PRN IVP ANXIETY / AGITATION Last administered on 07/20/21at 13:21; Start 07/20/21 at 12:15 Active Scripts Active Diltiazem 24HR Cd (Diltiazem Hcl) 120 Mg Cap.er.24h 120 Mg PO DAILY MDD 1 Reported Narcan (Naloxone HCl) 4 Mg [place] 1 [place] NS PRN PRN 14 Days Hydroxyzine Pamoate 50 Mg Capsule 1 Cap PO BID Hydrocodone-Apap 5-325 (Hydrocodone Bit/Acetaminophen) 1 Tab Tablet 1 Tab PO PRN TID PRN Furosemide 40 Mg Tablet 1 Tab PO PRN DAILY PRN Eliquis (Apixaban) 5 Mg Tablet 5 Mg PO BID Proair Respiclick (Albuterol Sulfate) 90 Mcg Aer.pow.ba 2 Puff IH PRN Q4-6HRS PRN Fluticasone Propionate Nasal [place] (Fluticasone Propionate) 16 Gm [place].susp 16 Gm NS DAILY Gabapentin 300 Mg Capsule 300 Mg PO BID Losartan Potassium 50 Mg Tablet 50 Mg PO DAILY Symbicort 160-4.5 Mcg Inhaler (Budesonide/Formoterol Fumarate) 10.2 Gm Hfa.aer.ad 2 Puff IH BID Cymbalta (Duloxetine Hcl) 60 Mg Capsule.dr 1 Cap PO DAILY Alprazolam 0.5 Mg Tablet 1 Tab PO QHS Montelukast Sodium Tablet (Montelukast Sodium) 10 Mg Tablet 10 Mg PO HS Meloxicam 15 Mg Tablet 15 Mg PO DAILY Omeprazole 20 Mg Capsule.dr 1 Cap PO DAILY Duoneb 0.5 Mg-3 Mg/3 Ml Soln (Ipratropium/Albuterol Sulfate) 3 Ml Ampul.neb 3 Ml IH QID Vitals/I & O Vital Sign - Last 24 Hours 07/20/21 07/20/21 07/20/21 07/20/21 19:12 19:31 19:46 22:37 Temp 97.8 97.9 97.8 97.9 Pulse 93 76 Resp 18 16 B/P (MAP) 180/94 (122) 160/88 (112) Pulse Ox 98 93 O2 Delivery Nasal Cannula Nasal Cannula Nasal Cannula Nasal Cannula O2 Flow Rate 3.0 3.0 3.0 3.0 07/21/21 07/21/21 07/21/21 07/21/21 02:04 02:56 07:00 08:00 Temp 98.2 97.4 98.2 97.4 Pulse 95 87 Resp 18 18 B/P (MAP) 171/103 (125) 170/95 (120) Pulse Ox 97 96 O2 Delivery Nasal Cannula Nasal Cannula Nasal Cannula Nasal Cannula O2 Flow Rate 3.0 3.0 3.0 07/21/21 07/21/21 07/21/21 07/21/21 08:53 08:53 11:00 12:16 Temp 97.9 97.9 Pulse 87 87 84 Resp 20 B/P (MAP) 170/95 170/95 169/94 (119) Pulse Ox 99 O2 Delivery Nasal Cannula Nasal Cannula O2 Flow Rate 3.0 3.0 07/21/21 15:27 Temp 97.6 97.6 Pulse 92 Resp 17 B/P (MAP) 165/86 (112) Pulse Ox 98 O2 Delivery Nasal Cannula O2 Flow Rate 3.0 Intake and Output 07/20/21 07/20/21 07/21/21 15:00 23:00 07:00 Intake Total 520 ml 500 ml 0 ml Output Total 800 ml Balance 520 ml -300 ml 0 ml Justifications for Admission Other Justification MARKIE CARNES MD Jul 21, 2021 16:47
[2021-07-21] MEDS: cefTRIAXone IV Push 1 GM VIAL. IVP SCH (17:34)
[2021-07-21] MEDS: FLUTICASONE FUROATE 100mcg/INH ELLIPTA INHALER. INH SCH (19:46)
[2021-07-21] MEDS: MONTELUKAST SODIUM 10 MG TABLET. PO SCH (19:47)
[2021-07-21] MEDS: PATCH REMOVAL. MC SCH (19:48)
[2021-07-21 19:50] VITALS: BP 166/95
[2021-07-21 22:58] VITALS: BP 149/92
[2021-07-22 02:58] VITALS: BP 140/88
[2021-07-22] MEDS: oxyCODONE/APAP 5/325 1 TAB TABLET PO PRN ×3 (03:46→13:47)
[2021-07-22] MEDS: methylPREDNISolone SOD SUCC PF 40 MG/ML VIAL. IV SCH ×2 (05:00→13:47)
[2021-07-22 07:00] VITALS: BP 174/100
[2021-07-22] MEDS: LIDOCAINE (700MG/PATCH) PATCH. TD SCH (07:38)
[2021-07-22] MEDS: ALBUTEROL SULFATE 8GM INHALER. INH SCH ×2 (08:00→11:58)
[2021-07-22] MEDS: APIXABAN 5 MG TABLET. PO SCH (08:53)
[2021-07-22] MEDS: BENZONATATE 100 MG CAPSULE. PO SCH (08:54)
[2021-07-22] MEDS: DULoxetine HCL 30 MG CAPSULE.DR PO SCH (08:54)
[2021-07-22] MEDS: hydrOXYzine 25 MG TABLET PO SCH (08:54)
[2021-07-22] MEDS: GABAPENTIN 300 MG CAPSULE. PO SCH (08:54)
[2021-07-22] MEDS: DOXYCYCLINE HYCLATE 100 MG TABLET PO SCH (08:54)
[2021-07-22] MEDS: LOSARTAN POTASSIUM 50 MG TABLET. PO SCH (08:54)
[2021-07-22] MEDS: LACTOBACILLUS RHAMNOSUS GG 1 CAPSULE. PO SCH (08:54)
[2021-07-22] MEDS: PANTOPRAZOLE 40 MG TABLET.DR. PO SCH (08:54)
[2021-07-22] MEDS: FLUTICASONE 50MCG/NASAL SPRAY 16GM BOTTLE. NS SCH (08:55)
[2021-07-22] MEDS: SENNOSIDES/DOCUSATE 8.6/50MG TABLET. PO SCH (09:00)
--- NOTE | 2021-07-22 09:53 | PDOC ---
CARDIO Progress Notes Date and Time Date of Service 07/22/21 Time of Evaluation 0920 Subjective Subjective: No Chest Pain, No Palpitations, No Dizziness, Other (breathing better today ) Vitals Vitals Vital Signs Date Time Temp Pulse Resp B/P (MAP) Pulse Ox O2 Delivery O2 Flow Rate FiO2 07/22/21 09:14 98 Nasal Cannula 3.0 07/22/21 08:54 76 140/88 07/22/21 07:00 98.6 20 98.6 Weight Weight [ ] Input and Output Intake and Output Intake and Output 07/22/21 07:00 Intake Total 380 ml Output Total 400 ml Balance -20 ml Intake Oral 380 ml Output Urine Total 400 ml Laboratory Labs Laboratory Tests Test 07/21/21 12:52 White Blood Count 9.9 x10^3/uL (4.0-11.0) Red Blood Count 3.59 x10^6/uL (3.50-5.40) Hemoglobin 11.4 g/dL (12.0-15.5) Hematocrit 34.3 % (36.0-47.0) Mean Corpuscular Volume 95 fL (79-100) Mean Corpuscular Hemoglobin 32 pg (25-35) Mean Corpuscular Hemoglobin Concent 33 g/dL (31-37) Red Cell Distribution Width 14.3 % (11.5-14.5) Platelet Count 312 x10^3/uL (140-400) Neutrophils (%) (Auto) 91 % (31-73) Lymphocytes (%) (Auto) 4 % (24-48) Monocytes (%) (Auto) 5 % (0-9) Eosinophils (%) (Auto) 0 % (0-3) Basophils (%) (Auto) 0 % (0-3) Neutrophils # (Auto) 9.1 x10^3/uL (1.8-7.7) Lymphocytes # (Auto) 0.3 x10^3/uL (1.0-4.8) Monocytes # (Auto) 0.5 x10^3/uL (0.0-1.1) Eosinophils # (Auto) 0.0 x10^3/uL (0.0-0.7) Basophils # (Auto) 0.0 x10^3/uL (0.0-0.2) Segmented Neutrophils % 90 % (35-66) Band Neutrophils % 1 % (0-9) Lymphocytes % 5 % (24-48) Monocytes % 4 % (0-10) Platelet Estimate Adequate (ADEQUATE) Large Platelets Few Sodium Level 138 mmol/L (136-145) Potassium Level 3.6 mmol/L (3.5-5.1) Chloride Level 101 mmol/L (98-107) Carbon Dioxide Level 34 mmol/L (21-32) Anion Gap 3 (6-14) Blood Urea Nitrogen 24 mg/dL (7-20) Creatinine 0.7 mg/dL (0.6-1.0) Estimated GFR (Cockcroft-Gault) 85.1 Glucose Level 145 mg/dL (70-99) Calcium Level 8.2 mg/dL (8.5-10.1) Magnesium Level 2.0 mg/dL (1.8-2.4) Microbiology Micro Microbiology 07/17/21 Blood Culture - Preliminary, Resulted NO GROWTH AFTER 4 DAYS Physical Exam HEENT: Neck Supple W Full Motion Chest: Symmetric LUNGS: Other (diminished, on NC) Heart: RRR Abdomen: Soft N/T Extremities: No Edema Neurology: alert, oriented, follow commands Assessment Assessment 1. Acute on chronic respiratory failure secondary to AECOPD, COVID PNA, and CHF 2. Acute on chronic systolic CHF; appears compensated 3. Mild cardiomyopathy; echo 09/08 with LVEF 45% 4. PAFIB; s/p ablation 06/10. Follow with [facility]. Noted with paroxysms of AFIB on tele in setting of acute COVID infection. Presently maintaining SR 5. Hypertension; controlled overall 6. Hyperlipidemia Recommendations Continue Cardizem for rate control Eliquis for stroke prophylaxis Ongoing pulmonary optimization, treatment of COVID Follow up with [facility] cardiology team upon discharge Supportive care Justicifation of Admission Dx: Justifications for Admission: Justification of Admission Dx: Yes Respiratory Failure: Severe Resp Distress SAPNA TONG APRN Jul 22, 2021 09:53
[2021-07-22 11:00] VITALS: BP 156/107
--- NOTE | 2021-07-22 11:15 | NUR ---
SS following up with discharge planning. SS reviewed pt chart and discussed with pt RN. Pt is currently requiring oxygen at three liters nasal canula. COVID19 positive. Pt has no home oxygen. Cardiology following. Pt on IV Solu-Medrol and IV Rocephin. PT/OT recommended home with assistance. Not ready. SS will continue to follow for discharge planning. Addendum: 07/22/21 at 1448 by BEV DIALLO SS Discharge orders received for home with home healthcare. Pt reported that she does have home oxygen and portable tanks and is having a friend bring a tank to the hospital for transport to home. Referrals sent to several home healthcare companies and at this point SS has been notified that home healthcare companies are at capacity for Medicaid at this time. SS discussed with pt and pt reported understanding. Pt's RN notified.
--- NOTE | 2021-07-22 13:13 | PDOC ---
[employer] PROGRESS NOTE Date of Service DOS: DATE: 07/22/21 TIME: 12:46 Chief Complaint Chief Complaint Assessment/Plan Acute hypoxic respiratory failure secondary to COVID-19 pneumonia versus superimposed bacterial pneumonia, history of A. fib COPD fibromyalgia hypertension hyperlipidemia Acute on chronic hypoxic respiratory failure with AE COPD and diastolic CHF and COVID 19 - wean O2 as tolerated Acute COPD exacerbation - due to have 2nd COVID 19 vaccine today. Improved a bit with nebs and steroids Acute diastolic CHF - will give IV lasix Paroxysmal AFIB - not on any meds, has not had cardiology follow up Hypertension - controlled Hyperlipidemia - LDL 140 Smoker - counseled on cessation -admit to hospitalist for Covid treatment -Dexamethasone. Did okay with cephalosporin in emergency room will continue despite allergies; add Doxy as well -Provide Combivent inhaler -Wean oxygen as tolerated on baseline home 3 L -DVT prophylaxis -Home meds resumed as indicated -Advance diet as tolerated History of Present Illness History of Present Illness Ms Tao is a 60 yo F w/ PMHx atrial fibrillation, cardiomyopathy with preserved EF, hyperlipidemia, depression, fibromyalgia, smoker, and COPD comes in with worsening shortness of breath and weakness. She and her son tested positive for the rapid COVID-19 test at home at the beginning of June. She was still positive in the ED here. 07/20: In bed talking on the phone. She is having a hard time catching her breath still but saturations are still doing okay. Continue COVID treatment. Feeling very anxious 07/19: Evaluated examined at bedside. Restin in bed easily awoken. Explained covid treatment p;ritika. She was agreeable and very pleasant. positive blood cultures likely contaminant. 07/18: Seen at bedside. Patient resting in bed. On 3 L nasal cannula. Continue COVID treatment. Hopeful to get a room upstairs soon. Plan discussed with bedside RN. 07/21: Feeling very weak. Still on 3 L of nasal cannula oxygen. Having trouble getting up in bed. Appetite is improved but just very weak. 07/22: Feels stronger. O2 saturations 97% on 1 L nasal cannula oxygen. Appetite improved feels she would rather be recovering at home with possibility of home health. She does have her son at home and has 3 L/min of nocturnal O2 at home. Vitals/I&O Vitals/I&O: Vital Signs Date Time Temp Pulse Resp B/P (MAP) Pulse Ox O2 Delivery O2 Flow Rate FiO2 07/22/21 11:00 97.7 110 18 156/107 (123) 95 Nasal Cannula 1.0 97.7 I & O 07/21/21 07/21/21 07/22/21 14:59 22:59 06:59 Intake Total 180 ml 200 ml 0 ml Output Total 400 ml Balance 180 ml -200 ml 0 ml Physical Exam General: Alert, Oriented X3, Cooperative, moderate distress Heart: Regular rate Lungs: Clear Abdomen: Normal bowel sounds, Soft, No tenderness Extremities: No edema, Normal pulses Skin: No significant lesion Labs Labs: Laboratory Tests Test 07/21/21 12:52 White Blood Count 9.9 x10^3/uL (4.0-11.0) Red Blood Count 3.59 x10^6/uL (3.50-5.40) Hemoglobin 11.4 g/dL (12.0-15.5) Hematocrit 34.3 % (36.0-47.0) Mean Corpuscular Volume 95 fL (79-100) Mean Corpuscular Hemoglobin 32 pg (25-35) Mean Corpuscular Hemoglobin Concent 33 g/dL (31-37) Red Cell Distribution Width 14.3 % (11.5-14.5) Platelet Count 312 x10^3/uL (140-400) Neutrophils (%) (Auto) 91 % (31-73) Lymphocytes (%) (Auto) 4 % (24-48) Monocytes (%) (Auto) 5 % (0-9) Eosinophils (%) (Auto) 0 % (0-3) Basophils (%) (Auto) 0 % (0-3) Neutrophils # (Auto) 9.1 x10^3/uL (1.8-7.7) Lymphocytes # (Auto) 0.3 x10^3/uL (1.0-4.8) Monocytes # (Auto) 0.5 x10^3/uL (0.0-1.1) Eosinophils # (Auto) 0.0 x10^3/uL (0.0-0.7) Basophils # (Auto) 0.0 x10^3/uL (0.0-0.2) Segmented Neutrophils % 90 % (35-66) Band Neutrophils % 1 % (0-9) Lymphocytes % 5 % (24-48) Monocytes % 4 % (0-10) Platelet Estimate Adequate (ADEQUATE) Large Platelets Few Sodium Level 138 mmol/L (136-145) Potassium Level 3.6 mmol/L (3.5-5.1) Chloride Level 101 mmol/L (98-107) Carbon Dioxide Level 34 mmol/L (21-32) Anion Gap 3 (6-14) Blood Urea Nitrogen 24 mg/dL (7-20) Creatinine 0.7 mg/dL (0.6-1.0) Estimated GFR (Cockcroft-Gault) 85.1 Glucose Level 145 mg/dL (70-99) Calcium Level 8.2 mg/dL (8.5-10.1) Magnesium Level 2.0 mg/dL (1.8-2.4) Assessment and Plan Assessmemt and Plan Problems Medical Problems: (1) Person under investigation for COVID-19 Status: Acute (2) Pneumonia Status: Acute (3) Sepsis Status: Acute Comment Review of Relevant I have reviewed the following items nieves (where applicable) has been applied. Justifications for Admission Other Justification AKASH LOUIS MD Jul 22, 2021 13:12
[2021-07-22] MEDS ORDERED: BENZ-8 PO (13:19)
[2021-07-22] MEDS ORDERED: DOXY100T PO (13:19)
[2021-07-22] MEDS ORDERED: DEXA6TAB6 PO (13:19)
--- NOTE | 2021-07-22 13:21 | SNU/HH DC ---
DISCHARGE WITH HOME HEALTH DISCHARGE INFORMATION: Discharge Date: Jul 22, 2021 Final Diagnosis: Problems Medical Problems: (1) Person under investigation for COVID-19 Status: Acute (2) Pneumonia Status: Acute (3) Sepsis Status: Acute Condition on Discharge: Stable CODE STATUS: Code Status: Full HOME HEALTH: Face to Face: I certify this patient is under my care and that I, or a nurse practitioner or physician's registrar assistant working with me, had a face to face encounter that meets the physician face to face encounter requirements with this patient on 07/22/2021. Medical Complications: COPD, HTN Usp For: Assess Cardiopulm Status, Assess/Skilled Observatio, Medication Management RN For Eval/Treatment: Yes Physical Therapy For: Evalulation/Treatment Occupational Therapy For: Evaluation/Treatment Pt Meets Homebound Status: Extreme weakness w/ amb., Fatigue w/ amb. POST DISCHARGE ORDERS: Activity Instructions for Disc: No restrictions, Resume previous activity, Activity as tolerated Weight Bearing Status after Di: No restrictions, Full weight bearing, As tolerated DIET AFTER DISCHARGE: Cardiac Wound/Incision Care: No wound care needed CHECKS AFTER DISCHARGE: Checks after discharge: Check blood press - daily, Check your Temp as needed FOLLOW-UP: Additional Instructions: Call to follow up with cardiology [id number] [facility] [place] [address] TREATMENT/EQUIPMENT ORDERS: Adaptive Equipment Issued: None Discharge Respiratory Equipmen: Oxygen (1l/min during day 3l/min at night) CERTIFICATION STATEMENT: Certification Statement: Certification Statement: Based on the above finding, I certify that this patient is confined to the home and needs intermittent prison care, physical therapy and/or speech therapy, or continues to need occupational therapy.~ This patient is under my care, and I have initiated the establishment of the plan of care.~ This patient will be followed by myself or a community physician who will periodically review the plan of care. Home Meds Active Scripts Benzonatate (BENZONATATE) 100 Mg Capsule, 100 MG PO BID for Cough for 10 Days, #20 CAP Prov:AKASH LOUIS MD 07/22/21 Dexamethasone (Decadron) 6 Mg Tablet, 6 MG PO DAILY for COPD/COVID19 for 5 Days, #5 TAB Prov:AKASH LOUIS MD 07/22/21 Doxycycline Hyclate (DOXYCYCLINE HYCLATE) 100 Mg Tablet, 100 MG PO BID for Bronchitis for 5 Days, #10 TAB Prov:AKASH LOUIS MD 07/22/21 Diltiazem Hcl (DILTIAZEM 24HR CD) 120 Mg Cap.er.24h, 120 MG PO DAILY for htn MDD 1, #60 CAP.SR Prov:RASHID HURTADO MD 11/25/18 Reported Medications Hydroxyzine Pamoate (HYDROXYZINE PAMOATE) 50 Mg Capsule, 1 CAP PO BID for , #90 CAP 1 Refill 07/18/21 Hydrocodone Bit/Acetaminophen (HYDROCODONE-APAP 5-325 ) 1 Tab Tablet, 1 TAB PO PRN TID PRN for PAIN, TAB 0 Refills 07/18/21 Furosemide (FUROSEMIDE) 40 Mg Tablet, 1 TAB PO PRN DAILY PRN for , #30 TAB 5 Refills 07/18/21 Apixaban (ELIQUIS) 5 Mg Tablet, 5 MG PO BID for , TAB 07/18/21 Albuterol Sulfate (Proair Respiclick) 90 Mcg Aer.pow.ba, 2 PUFF IH PRN Q4-6HRS PRN for shortness of breath, #1 INHALER 0 Refills 07/18/21 Fluticasone Propionate (FLUTICASONE PROPIONATE NASAL SPRAY) 16 Gm [place].susp, 16 GM NS DAILY for 11/23/18 Gabapentin (Gabapentin) 300 Mg Capsule, 300 MG PO BID for 11/23/18 Losartan Potassium (LOSARTAN POTASSIUM) 50 Mg Tablet, 50 MG PO DAILY for HTN, TAB 05/01/18 Budesonide/Formoterol Fumarate (SYMBICORT 160-4.5 MCG INHALER) 10.2 Gm Hfa.aer.ad, 2 PUFF IH BID, #10.6 GM 3 Refills 03/05/17 Duloxetine Hcl (CYMBALTA) 60 Mg Capsule.dr, 1 CAP PO DAILY, #90 CAP 3 Refills 03/05/17 Alprazolam (ALPRAZOLAM) 0.5 Mg Tablet, 1 TAB PO QHS, #30 TAB 03/05/17 Montelukast Sodium (MONTELUKAST SODIUM TABLET ) 10 Mg Tablet, 10 MG PO HS for FOR ASTHMA, #30 TAB 0 Refills 03/05/17 Omeprazole (OMEPRAZOLE) 20 Mg Capsule.dr, 1 CAP PO DAILY, #30 CAP 5 Refills 11/21/15 Ipratropium/Albuterol Sulfate (DUONEB 0.5 MG-3 MG/3 ML SOLN) 3 Ml Ampul.neb, 3 ML IH QID for 05/29/13 Discontinued Reported Medications Naloxone HCl (Narcan) 4 Mg [place], 1 SPRAY NS PRN PRN for for 14 Days, #1 INHALER 0 Refills 07/18/21 Meloxicam (MELOXICAM) 15 Mg Tablet, 15 MG PO DAILY, TAB 03/05/17 AKASH LOUIS MD Jul 22, 2021 13:21
--- NOTE | 2021-07-22 13:22 | PDOC3 ---
Discharge Summary Visit Information Final Diagnosis Problems Medical Problems: (1) Person under investigation for COVID-19 Status: Acute (2) Pneumonia Status: Acute (3) Sepsis Status: Acute Brief Hospital Course Allergies Allergies Coded Allergies Type Severity Reaction Last Updated Verified Penicillins Allergy Intermediate "SKIN PEELS OFF HANDS AND FEET" 11/21/15 Yes Sulfa (Sulfonamide Antibiotics) Allergy Intermediate BLISTERS 11/21/15 Yes Vital Signs Vital Signs Date Time Temp Pulse Resp B/P (MAP) Pulse Ox O2 Delivery O2 Flow Rate FiO2 07/22/21 11:00 97.7 110 18 156/107 (123) 95 Nasal Cannula 1.0 97.7 Lab Results Laboratory Tests Test 07/21/21 12:52 White Blood Count 9.9 x10^3/uL (4.0-11.0) Red Blood Count 3.59 x10^6/uL (3.50-5.40) Hemoglobin 11.4 g/dL (12.0-15.5) Hematocrit 34.3 % (36.0-47.0) Mean Corpuscular Volume 95 fL (79-100) Mean Corpuscular Hemoglobin 32 pg (25-35) Mean Corpuscular Hemoglobin Concent 33 g/dL (31-37) Red Cell Distribution Width 14.3 % (11.5-14.5) Platelet Count 312 x10^3/uL (140-400) Neutrophils (%) (Auto) 91 % (31-73) Lymphocytes (%) (Auto) 4 % (24-48) Monocytes (%) (Auto) 5 % (0-9) Eosinophils (%) (Auto) 0 % (0-3) Basophils (%) (Auto) 0 % (0-3) Neutrophils # (Auto) 9.1 x10^3/uL (1.8-7.7) Lymphocytes # (Auto) 0.3 x10^3/uL (1.0-4.8) Monocytes # (Auto) 0.5 x10^3/uL (0.0-1.1) Eosinophils # (Auto) 0.0 x10^3/uL (0.0-0.7) Basophils # (Auto) 0.0 x10^3/uL (0.0-0.2) Segmented Neutrophils % 90 % (35-66) Band Neutrophils % 1 % (0-9) Lymphocytes % 5 % (24-48) Monocytes % 4 % (0-10) Platelet Estimate Adequate (ADEQUATE) Large Platelets Few Sodium Level 138 mmol/L (136-145) Potassium Level 3.6 mmol/L (3.5-5.1) Chloride Level 101 mmol/L (98-107) Carbon Dioxide Level 34 mmol/L (21-32) Anion Gap 3 (6-14) Blood Urea Nitrogen 24 mg/dL (7-20) Creatinine 0.7 mg/dL (0.6-1.0) Estimated GFR (Cockcroft-Gault) 85.1 Glucose Level 145 mg/dL (70-99) Calcium Level 8.2 mg/dL (8.5-10.1) Magnesium Level 2.0 mg/dL (1.8-2.4) Brief Hospital Course Ms. Tao is a 60 old [sex] who presented with [ ] Discharge Information Scheduled Alprazolam (Alprazolam) 0.5 Mg Tablet, 1 TAB PO QHS, #30 (Reported) Entered as Reported by: AURELIO RIVERA on 03/05/171602 Last Action: Reviewed on 07/18/211908 by SOFIA CALIX Apixaban (Eliquis) 5 Mg Tablet, 5 MG PO BID for , (Reported) Entered as Reported by: SOFIA CALIX on 07/18/211906 Last Action: Continued on 07/19/21 1153 by AKASH LAM MD Benzonatate (Benzonatate) 100 Mg Capsule, 100 MG PO BID for Cough for 10 Days, #20 Prescribed by: AKASH LOUIS MD on 07/22/21 1319 Budesonide/Formoterol Fumarate (Symbicort 160-4.5 Mcg Inhaler) 10.2 Gm Hfa.aer.ad, 2 PUFF IH BID, #10.6 Ref 3 (Reported) Entered as Reported by: AURELIO RIVERA on 03/05/171602 Last Action: Reviewed on 07/18/211906 by SOFIA CALIX Dexamethasone (Decadron) 6 Mg Tablet, 6 MG PO DAILY for COPD/COVID19 for 5 Days, #5 Prescribed by: AKASH LOUIS MD on 07/22/21 1319 Diltiazem Hcl (Diltiazem 24HR Cd) 120 Mg Cap.er.24h, 120 MG PO DAILY for htn MDD 1, #60 Prescribed by: RASHID HURTADO on 11/25/18 1310 Last Action: Reviewed on 07/18/211906 by SOFIA CALIX Doxycycline Hyclate (Doxycycline Hyclate) 100 Mg Tablet, 100 MG PO BID for Bronchitis for 5 Days, #10 Prescribed by: AKASH LOUIS MD on 07/22/21 1319 Duloxetine Hcl (Cymbalta) 60 Mg Capsule.dr, 1 CAP PO DAILY, #90 Ref 3 (Reported) Entered as Reported by: AURELIO RIVERA on 03/05/17 1603 Last Action: Reviewed on 07/18/211906 by SOFIA CALIX Fluticasone Propionate (Fluticasone Propionate Nasal [place]) 16 Gm [place].susp, 16 GM NS DAILY for , (Reported) Entered as Reported by: MARVIN HENNESSY RN on 11/23/18443 Last Action: Reviewed on 07/18/211906 by SOFIA CALIX Gabapentin (Gabapentin) 300 Mg Capsule, 300 MG PO BID for , (Reported) Entered as Reported by: MARVIN HENNESSY RN on 11/23/18443 Last Action: Reviewed on 07/18/211906 by SOFIA CALIX Hydroxyzine Pamoate (Hydroxyzine Pamoate) 50 Mg Capsule, 1 CAP PO BID for , #90 Ref 1 (Reported) Entered as Reported by: SOFIA CALIX on 07/18/211906 Last Action: Converted on 07/19/21 1153 by AKASH LAM MD Ipratropium/Albuterol Sulfate (Duoneb 0.5 Mg-3 Mg/3 Ml Soln) 3 Ml Ampul.neb, 3 ML IH QID for , (Reported) Entered as Reported by: MALINI ALLISON on 05/29/13 0930 Last Action: Edited on 07/18/211906 by SOFIA CALIX Losartan Potassium (Losartan Potassium) 50 Mg Tablet, 50 MG PO DAILY for HTN, (Reported) Entered as Reported by: MILAGROS GIBBS on 05/01/182009 Last Action: Reviewed on 07/18/211906 by SOFIA CALIX Montelukast Sodium (Montelukast Sodium Tablet ) 10 Mg Tablet, 10 MG PO HS for FOR ASTHMA, #30 Ref 0 (Reported) Entered as Reported by: HA IRWIN on 03/05/171426 Last Action: Continued on 07/17/21 152 by AKASH LAM MD Omeprazole (Omeprazole) 20 Mg Capsule.dr, 1 CAP PO DAILY, #30 Ref 5 (Reported) Entered as Reported by: ANANDA OVALLE on 11/21/15 1138 Last Action: Reviewed on 07/18/211908 by SOFIA CALIX Scheduled PRN Albuterol Sulfate (Proair Respiclick) 90 Mcg Aer.pow.ba, 2 PUFF IH PRN Q4-6HRS PRN for shortness of breath, #1 Ref 0 (Reported) Entered as Reported by: SOFIA CALIX on 07/18/211906 Last Action: HELD on 07/19/21 115 by AKASH LAM MD Furosemide (Furosemide) 40 Mg Tablet, 1 TAB PO PRN DAILY PRN for , #30 Ref 5 (Reported) Entered as Reported by: SOFIA CALIX on 07/18/211906 Last Action: Continued on 07/19/21 115 by AKASH LAM MD Hydrocodone Bit/Acetaminophen (Hydrocodone-Apap 5-325 ) 1 Tab Tablet, 1 TAB PO PRN TID PRN for PAIN, Ref 0 (Reported) Entered as Reported by: SOFIA CALIX on 07/18/211906 Last Action: HELD on 07/19/211152 by AKASH LAM MD Discontinued Medications Meloxicam (Meloxicam) 15 Mg Tablet, 15 MG PO DAILY, (Reported) Entered as Reported by: HA IRWIN on 03/05/171424 Last Action: Reviewed on 07/18/211906 by SOFIA CALIX Naloxone HCl (Narcan) 4 Mg [place], 1 SPRAY NS PRN PRN for for 14 Days, #1 Ref 0 (Reported) Entered as Reported by: OSFIA CALIX on 07/18/211909 Last Action: HELD on 07/19/21 115 by AKASH LAM MD Justicifation of Admission Dx: Justifications for Admission: Justification of Admission Dx: Yes Respiratory Failure: Severe Resp Distress AKASH LOUIS MD Jul 22, 2021 13:22
[2021-07-22 15:00] VITALS: BP 145/94
--- NOTE | 2021-07-22 16:25 | NUR ---
Discharge Note: SILVIA JOHN Discharge instructions and discharge home medications reviewed with Patient and a copy given. All questions have been answered and understanding verbalized. The following instructions and handouts were given: chest pain, PNA IV discontinued, no complications Social work still attempting to get patient home health. Patient going home with self care for now. Patient already has home oxygen and pulse oximeter at home. All belongings taken home with patient.
== END 2021-07-22 16:13 | disposition home or self-care (01) | DRG 871 ==
LOC: ER 13:07 → ED HOLD 15:00 → ER 16:43 → 6 SOUTH 07-18 16:20
PROVIDERS: ADMIT Student in an Organized Health Care Education/Training Program; ATTEND Student in an Organized Health Care Education/Training Program
DX: A41.89 Other specified sepsis (principal); J96.21 Acute and chronic respiratory failure with hypoxia; J12.82 Pneumonia due to coronavirus disease 2019; I50.43 Acute on chronic combined systolic (congestive) and diastolic (congestive) heart failure; J15.9 Unspecified bacterial pneumonia; U07.1 COVID-19; I42.9 Cardiomyopathy, unspecified; J44.0 Chronic obstructive pulmonary disease with (acute) lower respiratory infection; J44.1 Chronic obstructive pulmonary disease with (acute) exacerbation; R65.20 Severe sepsis without septic shock; E78.00 Pure hypercholesterolemia, unspecified; E78.5 Hyperlipidemia, unspecified; F17.200 Nicotine dependence, unspecified, uncomplicated; I11.0 Hypertensive heart disease with heart failure; I48.0 Paroxysmal atrial fibrillation; M79.7 Fibromyalgia; Z79.51 Long term (current) use of inhaled steroids; Z79.899 Other long term (current) drug therapy; Z82.49 Family history of ischemic heart disease and other diseases of the circulatory system; F32.A Depression, unspecified; F41.9 Anxiety disorder, unspecified; Z88.0 Allergy status to penicillin; Z88.2 Allergy status to sulfonamides
CPT/HCPCS: 36415; 36600; 71045; 80048; 80053; 81001; 82805; 83605; 83735; 83880; 84484; 85007; 85025; 87040; 87426; 93005; 94640; 96365; 96375; J0456; J0696; J1644; J2060; J2920; J2930; J7030; J7050; U0003; U0005; 97530-GP; 97535-GO; 99285-25; G0378